=== PATIENT | female | born 1975 ===

== ENCOUNTER → 2020-04-14 14:05 | Outpatient (REF) | payer OTHER, SELFPAY | LOC: HO.SL 14:05 | PROVIDERS: PCP Internal Medicine; Visit Provider Nurse Practitioner Family | DX: G47.30 Sleep apnea, unspecified (principal) | CPT/HCPCS: 95806 ==

== ENCOUNTER → 2020-08-02 13:51 | Outpatient (BNVA) | payer OTHER, SELFPAY | PROVIDERS: PCP Internal Medicine; Visit Provider Dietitian, Registered ==

== ENCOUNTER 2020-08-23 14:20 | Outpatient (REF) | payer OTHER, SELFPAY ==
[2020-08-23 14:54] LABS: MANUAL DIFF FLAG NO
[2020-08-23 14:58] LABS: Basophils Percent Auto 0.2 % (0-2); Eosinophils Absolute Auto 0.2 X10*3/uL (0.0-0.4); Eosinophils Percent Auto 1.7 % (0-4); Hematocrit 43.4 % (37-47); Hemoglobin 13.2 g/dl (12.0-16.0); Imm Gran Abs Auto 0.03 X10*3/uL (0.00-0.03); Imm Gran Pct Auto 0.3 % (0.0-0.4); Lymphocytes Absolute Auto 1.9 X10*3/uL (1.2-4.9); Mean Corpuscular HGB Conc 30.4 g/dl (31.0-35.0); Mean Corpuscular Hemoglobin 24.4 pg (27.0-33.0); Mean Corpuscular Volume 80.2 fL (80-98); Mean Platelet Volume 9.6 fL (9.4-12.3); Monocytes Absolute Auto 0.5 X10*3/uL (0.1-1.2); Monocytes Percent Auto 5.2 % (2-11); Neutrophils Absolute Auto 7.7 X10*3/uL (2.0-8.3); Neutrophils Percent Auto 74.6 % (45-73); Platelet Count 283 X10*3/uL (160-400); Red Blood Count 5.41 X10*6/uL (4.20-5.50); Red Cell Distribution Width 17.2 % (11.0-16.0); White Blood Count 10.4 X10*3/uL (4.8-10.8)
[2020-08-23 15:14] LABS: Estimated Average Glucose 128 mg/dL; Hemoglobin A1c % 6.1 %
[2020-08-23 15:24] LABS: Cholesterol 220 mg/dL; HDL Cholesterol 51 mg/dL; LDL Cholesterol Calculated 135 mg/dl; Triglycerides 174 mg/dL
[2020-08-23 15:47] LABS: Creatinine Urine 75.48 mg/dL; Free T4 (Free Thyroxine) 0.95 ng/dL (0.71-1.85); Microalbumin Urine < 5.0 mg/L; Thyroid Stimulating Hormone 2.37 uIU/mL (0.32-4.0); Vitamin D 25-OH Total 49.5 ng/mL (>30)
[2020-08-23 16:29] LABS: Folate > 20.0 ng/mL (> or = 4.0); Vitamin B12 199 pg/mL (200-900)
== END 2020-08-23 14:21 | disposition home or self-care (01) ==
LOC: HO.LAB 14:20
PROVIDERS: PCP Internal Medicine; Visit Provider Internal Medicine
DX: E78.00 Pure hypercholesterolemia, unspecified (principal); E11.65 Type 2 diabetes mellitus with hyperglycemia
CPT/HCPCS: 36415; 80061; 82043; 82306; 82607; 82746; 83036; 84439; 84443; 85025

== ENCOUNTER → 2020-09-06 09:27 | Outpatient (BNVA) | payer OTHER, SELFPAY | PROVIDERS: PCP Internal Medicine; Visit Provider Psychiatry & Neurology Neurology ==

== ENCOUNTER 2021-02-18 15:16 | Outpatient (REF) | payer OTHER, SELFPAY | END 2021-02-18 15:17 | disposition home or self-care (01) | LOC: HO.LNP 15:16 | PROVIDERS: Visit Provider Physician Assistant Medical | DX: J31.0 Chronic rhinitis (principal); Z20.822 Contact with and (suspected) exposure to COVID-19 | CPT/HCPCS: U0003; U0005 ==

== ENCOUNTER 2021-08-01 08:42 | Outpatient (REF) | payer OTHER, SELFPAY ==
--- NOTE | 2021-08-01 17:19 | PFT_ITS ---
Forced vital capacity 41, FEV1 34, FEV1/FVC 69, FEF 25-75 only 22%, and MVV 40%. Post bronchodilator therapy, there is a significant improvement in all the flow volumes. Total lung capacity 81 and residual volume 141, indicating some air trapping. Diffusion capacity 62, moderately reduced. CONCLUSION: Very severe obstructive airway disorder. Partial reversibility after bronchodilator therapy is noted. These findings are consistent with asthma/COPD overlap syndrome. Clinical correlation is recommended. Compared to results of 08/25/2014, there is a definite decline in the numbers. Fransisca Hernández MD MSB/MODL / [id number]
== END 2021-08-01 08:43 | disposition home or self-care (01) ==
LOC: HO.RESP 08:42
PROVIDERS: PCP Internal Medicine; Visit Provider Internal Medicine
DX: J43.9 Emphysema, unspecified (principal)
CPT/HCPCS: 94060; 94727; 94729

== ENCOUNTER 2021-12-05 08:06 | Outpatient (REF) | payer OTHER, SELFPAY ==
[2021-12-05 08:28] LABS: MANUAL DIFF FLAG NO
[2021-12-05 08:37] LABS: Basophils Percent Auto 0.2 % (0-2); Eosinophils Absolute Auto 0.2 X10*3/uL (0.0-0.4); Eosinophils Percent Auto 2.1 % (0-4); Hematocrit 37.7 % (37.0-47.0); Hemoglobin 12.2 g/dl (12.0-16.0); Imm Gran Abs Auto 0.03 X10*3/uL (0.00-0.03); Imm Gran Pct Auto 0.4 % (0.0-0.4); Lymphocytes Absolute Auto 1.9 X10*3/uL (1.2-4.9); Lymphocytes Percent Auto 23.3 % (20-40); Mean Corpuscular HGB Conc 32.4 g/dl (31.0-35.0); Mean Corpuscular Hemoglobin 26.4 pg (27.0-33.0); Mean Corpuscular Volume 81.6 fL (80.0-98.0); Mean Platelet Volume 9.9 fL (9.4-12.3); Monocytes Absolute Auto 0.5 X10*3/uL (0.1-1.2); Monocytes Percent Auto 6.3 % (2-11); Neutrophils Absolute Auto 5.5 x10*3/uL (2.0-8.3); Neutrophils Percent Auto 67.7 % (45-73); Platelet Count 257 X10*3/uL (160-400); Red Blood Count 4.62 X10*6/uL (4.20-5.50); Red Cell Distribution Width 13.4 % (11.0-16.0); White Blood Count 8.1 X10*3/uL (4.8-10.8)
[2021-12-05 09:05] LABS: Alanine Aminotransferase 10 U/L (0-31); Albumin Level 3.5 g/dL (3.5-5.0); Alkaline Phosphatase 76 U/L (39-117); Anion Gap 11 (12-20); Aspartate Amino Transferase 9 U/L (5-31); Bilirubin Total 0.9 mg/dL (0.0-1.0); Blood Urea Nitrogen 18 mg/dL (9-16); Calcium 8.9 mg/dL (8.4-10.2); Carbon Dioxide 31 mmol/L (22-29); Chloride 104 mmol/L (96-108); Estimated Glomerular Filt Rate > 60; Glucose Random 95 mg/dL (60-115); Potassium 3.7 mmol/L (3.3-5.1); Sodium 142 mmol/L (135-145); Total Protein 6.6 g/dL (6.5-8.0)
[2021-12-05 09:26] LABS: Free T4 (Free Thyroxine) 1.02 ng/dL (0.71-1.85); Thyroid Stimulating Hormone 1.59 uIU/mL (0.32-4.0); Vitamin D 25-OH Total 41.7 ng/mL (>30)
[2021-12-05 09:41] LABS: Folate 5.5 ng/mL (> or = 4.0); Vitamin B12 239 pg/mL (200-900)
== END 2021-12-05 08:07 | disposition home or self-care (01) ==
LOC: HO.LAB 08:06
PROVIDERS: PCP Internal Medicine; Visit Provider Internal Medicine
DX: E53.8 Deficiency of other specified B group vitamins (principal); E11.65 Type 2 diabetes mellitus with hyperglycemia; E78.00 Pure hypercholesterolemia, unspecified
CPT/HCPCS: 36415; 80053; 82306; 82607; 82746; 84439; 84443; 85025

== ENCOUNTER 2022-06-26 12:25 | Outpatient (REF) | payer OTHER, SELFPAY ==
[2022-06-26 13:25] LABS: Appearance Urine Clear; Color Urine Dark Yellow; Glucose Urine UA Negative (Negative); Leukocyte Esterase Urine Negative (Negative); Nitrite Urine Negative (Negative); PH 5.5 (5.0-9.0); Specific Gravity - Urine 1.025 (1.005-1.025); Urine Blood Negative (Negative); Urine Ketones Negative (Negative); Urine Protein Negative (Neg-Trace)
== END 2022-06-26 12:26 | disposition home or self-care (01) ==
LOC: HO.LAB 12:25
PROVIDERS: PCP Internal Medicine; Visit Provider Internal Medicine
DX: N39.0 Urinary tract infection, site not specified (principal)
CPT/HCPCS: 81003

== ENCOUNTER 2022-11-06 08:27 | Outpatient (REF) | payer OTHER, SELFPAY ==
[2022-11-06 08:43] LABS: MANUAL DIFF FLAG NO
[2022-11-06 09:05] LABS: Basophils Percent Auto 0.4 % (0-2); Eosinophils Absolute Auto 0.2 X10*3/uL (0.0-0.4); Eosinophils Percent Auto 1.5 % (0-4); Hematocrit 39.3 % (37.0-47.0); Hemoglobin 12.5 g/dl (12.0-16.0); Imm Gran Abs Auto 0.06 X10*3/uL (0.00-0.03); Imm Gran Pct Auto 0.6 % (0.0-0.4); Lymphocytes Absolute Auto 2.5 X10*3/uL (1.2-4.9); Lymphocytes Percent Auto 23.7 % (20-40); Mean Corpuscular HGB Conc 31.8 g/dl (31.0-35.0); Mean Corpuscular Hemoglobin 25.2 pg (27.0-33.0); Mean Corpuscular Volume 79.1 fL (80.0-98.0); Mean Platelet Volume 9.7 fL (9.4-12.3); Monocytes Absolute Auto 0.6 X10*3/uL (0.1-1.2); Monocytes Percent Auto 5.4 % (2-11); Neutrophils Absolute Auto 7.3 x10*3/uL (2.0-8.3); Neutrophils Percent Auto 68.4 % (45-73); Platelet Count 281 X10*3/uL (160-400); Red Blood Count 4.97 X10*6/uL (4.20-5.50); White Blood Count 10.6 X10*3/uL (4.8-10.8)
[2022-11-06 09:49] LABS: Alanine Aminotransferase 10 U/L (0-31); Albumin Level 3.6 g/dL (3.5-5.0); Alkaline Phosphatase 92 U/L (39-117); Anion Gap 12 (12-20); Aspartate Amino Transferase 11 U/L (5-31); Bilirubin Total 0.9 mg/dL (0.0-1.0); Blood Urea Nitrogen 14 mg/dL (9-16); Calcium 8.8 mg/dL (8.4-10.2); Carbon Dioxide 31 mmol/L (22-29); Chloride 102 mmol/L (96-108); Cholesterol 126 mg/dL; Estimated Glomerular Filt Rate > 60; Glucose Random 107 mg/dL (60-115); HDL Cholesterol 40 mg/dL; LDL Cholesterol Calculated 48 mg/dl; Potassium 3.7 mmol/L (3.3-5.1); Sodium 141 mmol/L (135-145); Total Protein 6.7 g/dL (6.5-8.0); Triglycerides 192 mg/dL
[2022-11-06 10:18] LABS: Folate 5.1 ng/mL (> or = 4.0); Free T4 (Free Thyroxine) 1.06 ng/dL (0.71-1.85); Thyroid Stimulating Hormone 1.84 uIU/mL (0.32-4.0); Vitamin B12 338 pg/mL (200-900); Vitamin D 25-OH Total 50.2 ng/mL (>30)
[2022-11-06 10:37] LABS: Creatinine Urine 198.37 mg/dL
== END 2022-11-06 08:28 | disposition home or self-care (01) ==
LOC: HO.LAB 08:27
PROVIDERS: PCP Internal Medicine; Visit Provider Internal Medicine
DX: E11.65 Type 2 diabetes mellitus with hyperglycemia (principal); E78.00 Pure hypercholesterolemia, unspecified
CPT/HCPCS: 36415; 80053; 80061; 82043; 82306; 82607; 82746; 84439; 84443; 85025

== ENCOUNTER 2023-07-12 09:45 | Outpatient (AMB) | payer OTHER, SELFPAY ==
[2023-07-12 09:57] VITALS: BP 120/68; PULSE 61; O2SAT 98; BMI 58.5
--- NOTE | 2023-07-12 09:57 | MHC.PC.OV ---
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 Allergies JASBIR Inhibitors [JASBIR INHIBITORS] Allergy (Severe, Verified 07/12/23 09:57) ANGIOEDEMA acetaminophen [From VICODIN] Allergy (Severe, Verified 07/12/23 09:57) ANGIOEDEMA hydrocodone [From VICODIN] Allergy (Severe, Verified 07/12/23 09:57) ANGIOEDEMA Tobacco use date assessed: 07/12/23 Dental Screening Dental Screen Date: 07/12/23 Did you have a dental visit in the last 12 months?: No Did you have a dental problem in the last 6 months where you did not have access to dental care?: No HPI Annual Exam HPI Details 48-year-old morbidly obese female with a history of hypertension hypercholesterolemia severe obstructive sleep apnea diabetes mellitus COPD GERD history of sleeve gastrectomy coming in for follow-up last seen in January 2023 patient's colonoscopy is up-to-date reminded about mammogram and Pap smears. Patient follows up with the bariatric surgeon in June 2023 had the the Kathryn laparoscopic single anastomosis duodenal ileal bypass. On the chart also noted had the shingles and flu shot.. Patient has also followed up with Cardiology in January [address] Lerma CAD history type 2 demand secondary to elevated blood pressures cardiac catheterization revealed normal coronary anatomy no role for aspirin. Continuing with statin amlodipine and carvedilol low-salt diet. January 2023 had left endoscopic carpal tunnel release doctors path. has diarrhea and on loperamid, does exercixse and has knee pain - needs tramadol. DM aic 7.0 but will hold off med PFS Medical History (Updated 07/12/23 @ 11:03 by Melina Barber MD) Coronary artery disease NSTEMI (non-ST elevated myocardial infarction) Rhinitis Acute sinusitis Leg abrasion Glaucoma Obesity Peripheral vascular disease Knee osteoarthritis GERD (gastroesophageal reflux disease) Hypercholesterolemia Insomnia B12 deficiency Hypertension Severe obstructive sleep apnea Non-STEMI (non-ST elevated myocardial infarction) Type 2 diabetes mellitus with hyperglycemia COPD (chronic obstructive pulmonary disease) DDD (degenerative disc disease), lumbar Surgical History (Updated 07/12/23 @ 11:03 by Melina Barber MD) Status post breast reduction Status post panniculectomy H/O left knee surgery History of surgery on arm LAP-BAND surgery status Family History Father Lung disease Diabetes Hypertension CVD (cardiovascular disease) Mother Diabetes Hypertension Maternal Grandmother Myocardial infarction Social History Housing: House Patient Tobacco Use Status: Former Tobacco user Tobacco use type: Cigarette e-Cigarette/Vaping Use: Never Used Second Hand Smoke Exposure: No service: No Current occupational status: unemployed and disabled Cognitive needs: No Hearing needs: No Vision needs: Yes Questionnaire PHQ-9 Over the last 2 weeks, how often have you been bothered by any of the following problems? 1. Little interest or pleasure in doing things: not at all 2. Feeling down, depressed, or hopeless: not at all 3. Trouble falling or staying asleep, or sleeping too much: not at all 4. Feeling tired or having little energy: not at all 5. Poor appetite or overeating: not at all 6. Feeling bad about yourself - or that you are a failure or have let yourself or your family down: not at all 7. Trouble concentrating on things, such as reading the newspaper or watching television: not at all 8. Moving or speaking so slowly that other people could have noticed. Or the opposite - being so fidgety or restless that you have been moving around a lot more than usual: not at all 9. Thoughts that you would be better off or of hurting yourself in some way: not at all Total score: 0 Depression Screening Interpretation: Negative Depression Screening Done: Yes Source: Developed by Drs. Parvez Bernstein, Dena Aguilar, Jcarlos Sherman and colleagues, with an educational deann from [employer]. Thrive Questionnaire Date Thrive assessed: 07/10/22 AUDIT C Alcohol Use Questionnaire (AUDIT-C) 1. How often do you have a drink containing alcohol?: Never 3. How often do you have six or more drinks on one occasion?: Never Total Score: 0 Score Reviewed/Action Taken: No MARV-7 AMB Questionnaire MARV-7 Date MARV - 7 assessed: 07/12/23 Feeling nervous, anxious, or on edge: 0 = Not at all Not being able to stop or control worryin = Not at all Worrying too much about different things: 0 = Not at all Trouble relaxin = Not at all Being so restless that it is hard to sit still: 0 = Not at all Becoming easily annoyed or irritable: 0 = Not at all Feeling afraid as if something awful might happen: 0 = Not at all Total MARV-7 score (0-4 normal; 5-9 mild; 10-14 moderate; 15-21 severe): 0 Source: Developed by Drs. Parvez Bernstein, Dena Aguilar, Jcarlos Sherman and colleagues, with an educational deann from [employer]. Physical exam (Primary Care) Vital Signs: Last Vital Signs Pulse 61 07/12/23 09:57 BP 120/68 07/12/23 09:57 Pulse Ox 98 07/12/23 09:57 Oxygen Delivery Method Room Air 07/12/23 09:57 BMI result Body Mass Index 58.5 Tobacco/Smoking Status: Tobacco use Status Tobacco use date assessed 07/12/23 07/12/23 09:58 Patient Tobacco Use Status Former Tobacco user 07/12/23 09:58 Tobacco use type Cigarette 07/12/23 09:58 e-Cigarette/Vaping Use Never Used 07/12/23 09:58 PHQ-9: PHQ-9 Score PHQ-9: Total score 0 07/12/23 10:50 Depression Screening Interpretation: Negative Thrive Assessment: Date of Thrive Assessment Date Thrive assessed 07/10/22 07/12/23 09:58 Const General: alert; No acute distress Eyes Conjunctivae: conjunctivae normal Resp Auscultation: clear to auscultation bilaterally Cardio Rate: regular rate Rhythm: regular rhythm GI Inspection: Yes normal to inspection Extrem General: Yes normal to inspection and No edema Results AMB Hemoglobin A1c AMB Hemoglobin A1c 7.0 % Last Edit by ADRIAN Hernandez on 07/12/23 10:50 Results Reviewed Results Reviewed: Laboratory Last Values Hgb A1c (Clinic) 7.0 % (4.0-6.0) H 07/12/23 09:56 Assessment and Plan Assessment & Plan (1) Bariatric surgery status: Comment: June 2023 duodenal ileal bypass aKt Code(s): Z98.84 - Bariatric surgery status Plan: Continue to follow-up with bariatric surgeon (2) Carpal tunnel syndrome on both sides: Comment: May had the right endoscopic carpal tunnel release under doctor Terrell January 2023 left Code(s): G56.03 - Carpal tunnel syndrome, bilateral upper limbs Plan: Doing good (3) History of sleeve gastrectomy: Comment: May 2021 robotic assisted laparoscopic removal of the lap band and conversion to sleeve gastrectomy Dr. Campbell 05/2021 Code(s): Z90.3 - Acquired absence of stomach [part of] (4) Hypertension: Comment: Coronary angiography March 2020 normal hypertension demand ischemia Code(s): I10 - Essential (primary) hypertension Qualifiers: Hypertension type: essential hypertension Qualified Code(s): I10 - Essential (primary) hypertension Plan: Continue with blood pressure medication. Decrease salt intake and exercise presently on amlodipine 2.5 mg once a day carvedilol 25 mg twice a day spironolactone 25 mg once a day (5) Hypercholesterolemia: Code(s): E78.00 - Pure hypercholesterolemia, unspecified Plan: Avoid fried foods, chicken skin, eggs, butter margarine, pastries and meat. Be it pork or beef they have a lot of cholesterol on atorvastatin 10 mg bedtime (6) Severe obstructive sleep apnea: Comment: Started on IVAPS intelligent volume assured pressure support Code(s): G47.33 - Obstructive sleep apnea (adult) (pediatric) Plan: Continue with IV APS more than 4 hours a night and benefits from this (7) Type 2 diabetes mellitus with hyperglycemia: Code(s): E11.65 - Type 2 diabetes mellitus with hyperglycemia Qualifiers: Diabetes mellitus [facility] insulin use: without [facility] use Qualified Code(s): E11.65 - Type 2 diabetes mellitus with hyperglycemia Plan: Decrease the amount of carbohydrate intake, pasta, bread, rice and potatoes are all sugar and that is aside from all the sweet stuff, remember that fruits are good but they are Sweet also. Discussed the A1c to be elevated but patient has had the surgery within the last month and so will continue to monitor for now without any new medication patient is on a bariatric diet (8) COPD (chronic obstructive pulmonary disease): Code(s): J44.9 - Chronic obstructive pulmonary disease, unspecified Qualifiers: COPD type: emphysema Emphysema type: unspecified Qualified Code(s): J43.9 - Emphysema, unspecified Plan: Continue with the inhaler as needed (9) Knee pain, bilateral: Code(s): M25.561 - Pain in right knee; M25.562 - Pain in left knee Plan: Tramadol increased to 3 times a day as needed. Orders: Orders AMB Hemoglobin A1c Today E11.65 - Type 2 diabetes mellitus with hyperglycemia Medications: Changed From tramadol 50 mg PO BID PRN 60 tabs 2RF pain M25.561 - Pain in right knee, M25.562 - Pain in left knee To tramadol 50 mg PO Q8H PRN 90 tabs 2RF pain M25.561 - Pain in right knee, M25.562 - Pain in left knee Discontinued cholecalciferol (vitamin D3) Discontinued Reason: Doctor's Order 50 mcg PO DAILY 90 days 90 caps 3RF ascorbic acid (vitamin C) (Vitamin C With Tyra Hips) Discontinued Reason: Doctor's Order 500 mg PO BID 180 tabs 3RF meloxicam Discontinued Reason: Change Referral Type 15 mg PO DAILY 90 days 60 tabs 0RF liraglutide (weight loss) Discontinued Reason: Doctor's Order 1.8 mg (0.3 mL) subcut DAILY 30 days 15 mL 0RF E11.65 - Type 2 diabetes mellitus with hyperglycemia, Z68.44 - Body mass index [BMI] 60.0-69.9, adult Coding Level of Care Code Est Pt Level 4 (46520) Diagnoses Bariatric surgery status Z98.84 Carpal tunnel syndrome on both sides G56.03 History of sleeve gastrectomy Z90.3 Essential hypertension I10 Hypertension type: essential hypertension Hypercholesterolemia E78.00 Severe obstructive sleep apnea G47.33 Type 2 diabetes mellitus with hyperglycemia, without long-term current use of insulin E11.65 Diabetes mellitus [facility] insulin use: without truck driver supervisor use Pulmonary emphysema, unspecified emphysema type J43.9 COPD type: emphysema Emphysema type: unspecified Knee pain, bilateral M25.561; M25.562
== END 2023-07-12 11:18 | disposition home or self-care (01) ==
PROVIDERS: Visit Provider Internal Medicine
DX: E11.65 Type 2 diabetes mellitus with hyperglycemia (principal); J43.9 Emphysema, unspecified; Z98.84 Bariatric surgery status; G56.03 Carpal tunnel syndrome, bilateral upper limbs; Z90.3 Acquired absence of stomach [part of]; I10 Essential (primary) hypertension; E78.00 Pure hypercholesterolemia, unspecified; G47.33 Obstructive sleep apnea (adult) (pediatric); M25.561 Pain in right knee; M25.562 Pain in left knee
CPT/HCPCS: 83036; 99214

== ENCOUNTER 2023-09-25 07:11 | Outpatient (REF) | payer OTHER, SELFPAY ==
--- NOTE | ~2023-09-25 | XR_ITS ---
EXAMINATION: XR KNEE, LEFT CLINICAL INFORMATION: Pain in left knee. COMPARISON: 04/09/2018. TECHNIQUE: Three views of the left knee. FINDINGS: The bones are diffusely demineralized. Advanced degenerative changes in the medial and patellofemoral compartments with narrowing of these compartments. Tricompartmental osteophytes. Trace suprapatellar effusion. XR/XR knee LT 3V IMPRESSION: Progression of advanced degenerative changes.
== END 2023-09-25 07:12 | disposition home or self-care (01) ==
LOC: HO.HOSX 07:11
PROVIDERS: Visit Provider Orthopaedic Surgery
DX: M17.12 Unilateral primary osteoarthritis, left knee (principal)
CPT/HCPCS: 73562; 99202

== ENCOUNTER 2023-09-25 14:32 | Outpatient (AMB) | payer OTHER, SELFPAY ==
[2023-09-25 14:51] VITALS: BMI 58.5
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
== END 2023-09-25 15:23 | disposition home or self-care (01) ==
PROVIDERS: PCP Internal Medicine; Visit Provider Orthopaedic Surgery
DX: M17.12 Unilateral primary osteoarthritis, left knee (principal)
CPT/HCPCS: 99202

== ENCOUNTER 2023-10-15 13:17 | Outpatient (AMB) | payer OTHER, SELFPAY ==
--- NOTE | 2023-10-15 13:22 | MHC.OFFVIS ---
Intake Vital Signs 10/15/23 13:24 Height 5 ft 3 in Weight 330 lb BMI 58.5 Intake Visit Reasons: OV- Left knee #1 Euflexxa gel injection Intake Note: Yessica is a 48 year old female who presents for her #1 Left knee Euflexxa gel injection. She has had Durolane injections in the past. Those injections have given her very good relief. She has had cortisone injections in the past which gave her minimal relief. She has tried Tylenol and anti-inflammatory medicines which gave her only mild relief. She continues to go to the gym and exercise as much as possible. Allergies JASBIR Inhibitors [JASBIR INHIBITORS] Allergy (Severe, Verified 10/15/23 13:25) ANGIOEDEMA acetaminophen [From VICODIN] Allergy (Severe, Verified 10/15/23 13:25) ANGIOEDEMA hydrocodone [From VICODIN] Allergy (Severe, Verified 10/15/23 13:25) ANGIOEDEMA Medication List - Last Reconciled 10/15/23 by Farhan Napier MD albuterol sulfate 2.5 mg (3 mL) inhalation Q4-6H PRN albuterol sulfate 90 mcg/actuation (ProAir HFA) 2 puffs inhalation Q6H PRN amlodipine 2.5 mg PO DAILY atorvastatin 10 mg PO BEDTIME blood sugar diagnostic (FreeStyle Lite Strips) CHECK BLOOD SUGAR TWICE A DAY carvedilol 25 mg PO BID [HeavyDUTYshower bench As directed] [iVAPS EPAP 8 & TVA 8 SD 14 PS 6-20 HT. 64 inches with 2L in NREM with heated humidified EPAP in range 6-9 TVA 7.7 -9.4] lancets (FreeStyle Lancets) 28 gauge miscellaneous BID 90 days mometasone-formoterol 100-5 mcg/actuation (Dulera) 1 puff inhalation Q12H [oxygen As directed 2 L NC] pantoprazole 40 mg PO DAILY [Shower chair As directed] tramadol 50 mg PO Q8H PRN PFSH Medical History Coronary artery disease NSTEMI (non-ST elevated myocardial infarction) Rhinitis Acute sinusitis Leg abrasion Glaucoma Obesity Peripheral vascular disease Knee osteoarthritis GERD (gastroesophageal reflux disease) Hypercholesterolemia Insomnia B12 deficiency Hypertension Severe obstructive sleep apnea Non-STEMI (non-ST elevated myocardial infarction) Type 2 diabetes mellitus with hyperglycemia COPD (chronic obstructive pulmonary disease) DDD (degenerative disc disease), lumbar Surgical History Status post breast reduction Status post panniculectomy H/O left knee surgery History of surgery on arm LAP-BAND surgery status Family History Father Lung disease Diabetes Hypertension CVD (cardiovascular disease) Mother Diabetes Hypertension Maternal Grandmother Myocardial infarction Social History Housing: House Patient Tobacco Use Status: Former Tobacco user Tobacco use type: Cigarette e-Cigarette/Vaping Use: Never Used Second Hand Smoke Exposure: No service: No Current occupational status: unemployed and disabled Current occupation: Right hand dominate Cognitive needs: No Hearing needs: No Vision needs: Yes Physical Exam Vital Signs: BMI result Body Mass Index 58.5 Const Other: Well-nourished well-developed very friendly female awake alert and oriented x3 in no acute distress Extrem Other: Bilateral lower extremity examination shows good capillary refill, no skin lesions noted, normal sensation light touch Left knee examination shows a minimal effusion, palpable crepitus with range of motion, pain with range of motion, no instability Office Procedures Joint Injection/Drain Joint Injection/Drain Primary Site: left knee Prep: site was prepped using aseptic technique Injected: 20 mg of (Euflexxa viscosupplementation) Procedure: The patient tolerated the procedure well Coding 94579 - Large joint Procedure code (CPT) selection complete Results Reviewed Results Reviewed: X-rays of the patient's left knee show joint space narrowing, subchondral sclerosis, no acute bony abnormalities Assessment & Plan Assessment & Plan (1) Arthritis of left knee: Code(s): M17.12 - Unilateral primary osteoarthritis, left knee Plan Ms. Olivas presents with left knee pain due to degenerative joint disease. I had a lengthy discussion with the patient regarding the treatment options. She wishes to hold off on surgery for as long as possible. I agree with this plan. She has not gotten good relief from cortisone injections in the past. She has gotten relief from viscosupplementation injections. Thus, the risks and benefits of a series of 3 Euflexxa injections were discussed at length with the patient. The patient wished to proceed with the 1st injection. She tolerated the injection well. She will continue with her exercise program. She will follow up next week as scheduled. Feel free to call me at any time should questions regarding her orthopedic management arise. I spent 22 minutes in reviewing the patient's records and imaging studies, seeing the patient and documenting in the medical record. Orders: Orders AMB Joint Injection/Aspiration Today M17.12 - Unilateral primary osteoarthritis, left knee Coding Level of Care Code Est Pt Level 2 (26177) Diagnoses Arthritis of left knee M17.12 CPT Codes Coding - 32562 Large joint: 76333 - Large joint ([id number])
[2023-10-15 13:24] VITALS: BMI 58.5
== END 2023-10-15 13:51 | disposition home or self-care (01) ==
PROVIDERS: PCP Internal Medicine; Visit Provider Orthopaedic Surgery
DX: M17.12 Unilateral primary osteoarthritis, left knee (principal)
CPT/HCPCS: 20610; 99214

== ENCOUNTER → 2023-10-15 13:17 | Outpatient (BNVA) | payer OTHER, SELFPAY | PROVIDERS: PCP Internal Medicine; Visit Provider Orthopaedic Surgery | DX: M17.12 Unilateral primary osteoarthritis, left knee (principal) | CPT/HCPCS: 20610; 99212; J7323 ==

== ENCOUNTER 2023-10-22 15:11 | Outpatient (AMB) | payer OTHER, SELFPAY ==
[2023-10-22 15:15] VITALS: BMI 58.5
--- NOTE | 2023-10-22 15:15 | A.OFFVIS_ITS ---
Intake Vital Signs 10/22/23 15:15 Height 5 ft 3 in Weight 330 lb BMI 58.5 Intake Visit Reasons: OV- Left knee #2 Euflexxa gel injecton Intake Note: Yessica is a 48 year old female who presents for her Left knee #2 Euflexxa gel injection. Patient reports her last injection was on 10/15/2023 and it went well. She states she would like to proceed with her injection today. She states that she got mild relief from the 1st injection. She denies any fevers or chills. 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 & declined Allergies JASBIR Inhibitors [JASBIR INHIBITORS] Allergy (Severe, Verified 10/22/23 15:25) ANGIOEDEMA acetaminophen [From VICODIN] Allergy (Severe, Verified 10/22/23 15:25) ANGIOEDEMA hydrocodone [From VICODIN] Allergy (Severe, Verified 10/22/23 15:25) ANGIOEDEMA PFSH Medical History Coronary artery disease NSTEMI (non-ST elevated myocardial infarction) Rhinitis Acute sinusitis Leg abrasion Glaucoma Obesity Peripheral vascular disease Knee osteoarthritis GERD (gastroesophageal reflux disease) Hypercholesterolemia Insomnia B12 deficiency Hypertension Severe obstructive sleep apnea Non-STEMI (non-ST elevated myocardial infarction) Type 2 diabetes mellitus with hyperglycemia COPD (chronic obstructive pulmonary disease) DDD (degenerative disc disease), lumbar Surgical History Status post breast reduction Status post panniculectomy H/O left knee surgery History of surgery on arm LAP-BAND surgery status Family History Father Lung disease Diabetes Hypertension CVD (cardiovascular disease) Mother Diabetes Hypertension Maternal Grandmother Myocardial infarction Social History Housing: House Patient Tobacco Use Status: Former Tobacco user Tobacco use type: Cigarette e-Cigarette/Vaping Use: Never Used Second Hand Smoke Exposure: No service: No Current occupational status: unemployed and disabled Current occupation: Right hand dominate Cognitive needs: No Hearing needs: No Vision needs: Yes Physical Exam Vital Signs: BMI result Body Mass Index 58.5 Extrem Other: Bilateral lower extremity examination shows good capillary refill, no skin lesions noted, normal sensation light touch Left knee examination shows a minimal effusion, palpable crepitus with range of motion, pain with range of motion, no instability Office Procedures Joint Injection/Drain Joint Injection/Drain Primary Site: left knee Prep: site was prepped using aseptic technique Injected: 20 mg of (Euflexxa viscosupplementation) and 1% plain lidocaine Procedure: The patient tolerated the procedure well Coding 03646 - Large joint Procedure code (CPT) selection complete Results Reviewed Results Reviewed: X-rays of the patient's left knee show joint space narrowing, subchondral sclerosis, no acute bony abnormalities Assessment & Plan Assessment & Plan (1) Arthritis of left knee: Code(s): M17.12 - Unilateral primary osteoarthritis, left knee Plan Ms. Olivas presents with left knee pain due to degenerative joint disease. The risks and benefits of her 2nd Euflexxa injection were discussed at length with the patient. The patient wished to proceed. She tolerated the injection well. She will continue with her home exercise program. She will follow-up for her 3rd injection as scheduled. Feel free to call me at any time should questions regarding her orthopedic management arise. I spent 22 minutes in reviewing the patient's records and imaging studies, seeing the patient and documenting in the medical record. Orders: Orders AMB Joint Injection/Aspiration 10/22/23 M17.12 - Unilateral primary osteoarthritis, left knee Coding Level of Care Code Procedure Only Diagnoses Arthritis of left knee M17.12 CPT Codes Coding - 64029 Large joint: 22788 - Large joint ([id number])
== END 2023-10-22 15:57 | disposition home or self-care (01) ==
PROVIDERS: PCP Internal Medicine; Visit Provider Orthopaedic Surgery
DX: M17.12 Unilateral primary osteoarthritis, left knee (principal)
CPT/HCPCS: 20610

== ENCOUNTER → 2023-10-22 15:11 | Outpatient (BNVA) | payer OTHER, SELFPAY | PROVIDERS: PCP Internal Medicine; Visit Provider Orthopaedic Surgery | DX: M17.12 Unilateral primary osteoarthritis, left knee (principal) | CPT/HCPCS: 20610; J7323 ==

== ENCOUNTER 2023-10-29 15:12 | Outpatient (AMB) | payer OTHER, SELFPAY ==
[2023-10-29 15:16] VITALS: BMI 58.5
--- NOTE | 2023-10-29 15:16 | A.OFFVIS_ITS ---
Vital Signs 10/29/23 15:16 Height 5 ft 3 in Weight 330 lb BMI 58.5 Intake Visit Reasons: OV- Left knee #3 Euflexxa injecton Intake Note: Yessica is a 48 year old female who presents for her Left knee #3 Euflexxa gel injection. Patient reports her last injection was on 10/22/2023 and it went well. She wishes to proceed with her last Left knee euflexxa gel injection tod jeaneth. She continues with her home exercise program. Allergies JASBIR Inhibitors [JASBIR INHIBITORS] Allergy (Severe, Verified 10/29/23 15:18) ANGIOEDEMA acetaminophen [From VICODIN] Allergy (Severe, Verified 10/29/23 15:18) ANGIOEDEMA hydrocodone [From VICODIN] Allergy (Severe, Verified 10/29/23 15:18) ANGIOEDEMA Medication List - Last Reconciled 10/30/23 by Farhan Napier MD albuterol sulfate 2.5 mg (3 mL) inhalation Q4-6H PRN albuterol sulfate 90 mcg/actuation (ProAir HFA) 2 puffs inhalation Q6H PRN amlodipine 2.5 mg PO DAILY atorvastatin 10 mg PO BEDTIME blood sugar diagnostic (FreeStyle Lite Strips) CHECK BLOOD SUGAR TWICE A DAY carvedilol 25 mg PO BID [HeavyDUTYshower bench As directed] [iVAPS EPAP 8 & TVA 8 VT 14 PS 6-20 HT. 64 inches with 2L in NREM with heated humidified EPAP in range 6-9 TVA 7.7 -9.4] lancets (FreeStyle Lancets) 28 gauge miscellaneous BID 90 days mometasone-formoterol 100-5 mcg/actuation (Dulera) 1 puff inhalation Q12H [oxygen As directed 2 L NC] pantoprazole 40 mg PO DAILY [Shower chair As directed] tramadol 50 mg PO Q8H PRN PFSH Medical History Coronary artery disease NSTEMI (non-ST elevated myocardial infarction) Rhinitis Acute sinusitis Leg abrasion Glaucoma Obesity Peripheral vascular disease Knee osteoarthritis GERD (gastroesophageal reflux disease) Hypercholesterolemia Insomnia B12 deficiency Hypertension Severe obstructive sleep apnea Non-STEMI (non-ST elevated myocardial infarction) Type 2 diabetes mellitus with hyperglycemia COPD (chronic obstructive pulmonary disease) DDD (degenerative disc disease), lumbar Surgical History Status post breast reduction Status post panniculectomy H/O left knee surgery History of surgery on arm LAP-BAND surgery status Family History Father Lung disease Diabetes Hypertension CVD (cardiovascular disease) Mother Diabetes Hypertension Maternal Grandmother Myocardial infarction Social History Housing: House Patient Tobacco Use Status: Former Tobacco user Tobacco use type: Cigarette e-Cigarette/Vaping Use: Never Used Second Hand Smoke Exposure: No service: No Current occupational status: unemployed and disabled Current occupation: Right hand dominate Cognitive needs: No Hearing needs: No Vision needs: Yes Physical Exam Vital Signs: BMI result Body Mass Index 58.5 Extrem Other: Left knee examination shows a minimal effusion, palpable crepitus with range of motion, pain with range of motion, no instability Office Procedures Joint Injection/Drain Joint Injection/Drain Primary Site: left knee Prep: site was prepped using aseptic technique Injected: 20 mg of (Euflexxa viscosupplementation) and 1% plain lidocaine Procedure: The patient tolerated the procedure well Coding 46013 - Large joint Procedure code (CPT) selection complete Results Reviewed Results Reviewed: X-rays of the patient's left knee show joint space narrowing, subchondral sclerosis, no acute bony abnormalities Assessment & Plan Assessment & Plan (1) Arthritis of left knee: Code(s): M17.12 - Unilateral primary osteoarthritis, left knee Category: Medical Plan Ms. Olivas presents with left knee pain due to degenerative joint disease. I had a lengthy discussion with the patient regarding the treatment options. The risks and benefits of her 3rd Euflexxa injection were discussed at length with the patient. The patient wished to proceed. She tolerated the injection well. She will continue with her home exercise program. She will follow up with me on an as-needed basis should her symptoms not plateau at an unacceptable level over the next few months. Feel free to call me at any time should questions regarding her orthopedic management arise. I spent 22 minutes in reviewing the patient's records and imaging studies, seeing the patient and documenting in the medical record. Orders: Orders AMB Joint Injection/Aspiration 10/29/23 M17.12 - Unilateral primary osteoarthritis, left knee Coding Level of Care Code Procedure Only Diagnoses Arthritis of left knee M17.12 CPT Codes Coding - 64581 Large joint: 65790 - Large joint ([id number])
== END 2023-10-29 15:35 | disposition home or self-care (01) ==
PROVIDERS: PCP Internal Medicine; Visit Provider Orthopaedic Surgery
DX: M17.12 Unilateral primary osteoarthritis, left knee (principal)
CPT/HCPCS: 20610

== ENCOUNTER → 2023-10-29 15:12 | Outpatient (BNVA) | payer OTHER, SELFPAY | PROVIDERS: PCP Internal Medicine; Visit Provider Orthopaedic Surgery | DX: M17.12 Unilateral primary osteoarthritis, left knee (principal); Z79.899 Other long term (current) drug therapy | CPT/HCPCS: 20610; J7323 ==

== ENCOUNTER 2024-01-03 13:00 | Outpatient (REF) | payer OTHER, SELFPAY ==
[2024-01-03 15:02] LABS: HBS Num1 0.41 mIU/mL (0-7.99); HBc Num1 0.05 S/CO (0.00-0.79); HBsAGNum1 0.23 S/CO (0.00-0.99); Hepatitis B Core Antibody Nonreactive (Nonreactive); Hepatitis B Surface Antigen Negative (Negative); ~HepC Num1 0.07 S/CO (0.00-0.79); ~Hepatitis B Surface Antibody NONREACTIVE (Nonreactive); ~Hepatitis C Antibody Nonreactive (Nonreactive)
[2024-01-05 22:23] LABS: TS Negative Control Passed; TS Panel A 0; TS Panel B 1; TS Positive Control Passed; TSpotTB Negative (Negative)
[2024-01-07 17:57] LABS: Mumps Virus IgG Antibody <9.00 AU/mL; Rubella IgG Antibody 3.12 Index; Rubeola IgG (Measles) >300.00 AU/mL; Varicella IgG Antibody >4000.00 index
== END 2024-01-03 13:01 | disposition home or self-care (01) ==
LOC: HO.LAB 13:00
PROVIDERS: PCP Internal Medicine; Visit Provider Internal Medicine
DX: Z02.1 Encounter for pre-employment examination (principal); Z02.0 Encounter for examination for admission to educational institution; R79.89 Other specified abnormal findings of blood chemistry
CPT/HCPCS: 36415; 86481; 86704; 86706; 86735; 86762; 86765; 86787; 86803; 87340

== ENCOUNTER 2024-01-14 09:17 | Outpatient (AMB) | payer OTHER, SELFPAY ==
--- NOTE | 2024-01-14 09:20 | AM.OFFVISNUR ---
Intake Visit Reasons: MMR Allergies JASBIR Inhibitors [JASBIR INHIBITORS] Allergy (Severe, Verified 10/29/23 15:18) ANGIOEDEMA acetaminophen [From VICODIN] Allergy (Severe, Verified 10/29/23 15:18) ANGIOEDEMA hydrocodone [From VICODIN] Allergy (Severe, Verified 10/29/23 15:18) ANGIOEDEMA Assessment & Plan Assessment & Plan Orders: Orders MMR Immunization Today Z23 - Encounter for immunization Medications: New M-M-R II (PF) (measles,mumps,rubella vacc(PF)) 0.5 mL subcut ONCE 1 ea 0RF NS Z23 - Encounter for immunization
== END 2024-01-14 09:36 | disposition home or self-care (01) ==
PROVIDERS: PCP Internal Medicine; Visit Provider Internal Medicine
DX: Z23 Encounter for immunization (principal)
CPT/HCPCS: 90471; 90707

== ENCOUNTER 2024-02-06 07:38 | Outpatient (AMB) | payer OTHER, SELFPAY ==
[2024-02-06 07:45] VITALS: BP 108/60; PULSE 60; O2SAT 96; BMI 46.9
--- NOTE | 2024-02-06 07:45 | MHC.PC.OV ---
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 Uptwister Tender Required: No Accompanied by: Self / Same As Patient Allergies JASBIR Inhibitors [JASBIR INHIBITORS] Allergy (Severe, Verified 02/06/24 07:46) ANGIOEDEMA acetaminophen [From VICODIN] Allergy (Severe, Verified 02/06/24 07:46) ANGIOEDEMA hydrocodone [From VICODIN] Allergy (Severe, Verified 02/06/24 07:46) ANGIOEDEMA Medication List - Last Reconciled 02/06/24 by Radha Peters PA-C albuterol sulfate 2.5 mg (3 mL) inhalation Q4-6H PRN albuterol sulfate 90 mcg/actuation (ProAir HFA) 2 puffs inhalation Q6H PRN amlodipine 2.5 mg PO DAILY atorvastatin 10 mg PO BEDTIME blood sugar diagnostic (FreeStyle Lite Strips) CHECK BLOOD SUGAR TWICE A DAY carvedilol 25 mg PO BID [HeavyDUTYshower bench As directed] [iVAPS EPAP 8 & TVA 8 W[place] 14 PS 6-20 HT. 64 inches with 2L in NREM with heated humidified EPAP in range 6-9 TVA 7.7 -9.4] lancets (FreeStyle Lancets) 28 gauge miscellaneous BID 90 days mometasone-formoterol 100-5 mcg/actuation (Dulera) 1 puff inhalation Q12H [oxygen As directed 2 L NC] pantoprazole 40 mg PO DAILY [Shower chair As directed] tramadol 50 mg PO Q8H PRN Tobacco use date assessed: 07/12/23 Dental Screening Dental Screen Date: 02/06/24 Did you have a dental visit in the last 12 months?: No Did you have a dental problem in the last 6 months where you did not have access to dental care?: No Was dental information given to patient?: Patient has dentist HPI 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 Barber 07/2023 coming in for diabetes follow up. In review of the notes, patient was seen by orthopedics 10/2023 for left knee pain and given additional gel injection. She also had recent procedure left thumb A1 joey release for trigger finger. Mammogram completed 07/2023 BIRADS-2 follow up one year. Patient states since her surgery in June she has had a 93 lb weight loss and has been feeling good. She began working in October and has been able to tolerate standing for long periods of time as well as lifting over 30 lb. She also mentioned she has been exercising using a treadmill 15-20 minutes daily. Her diet has changed since her surgery and now she is unable to eat greasy foods without having diarrhea. Otherwise she eats primarily salads with protein. She still has mild knee pain which has improved since the last gel injection. [facility] Medical History (Updated 02/06/24 @ 08:02 by Radha Peters PA-C) Coronary artery disease NSTEMI (non-ST elevated myocardial infarction) Rhinitis Acute sinusitis Leg abrasion Glaucoma Obesity Peripheral vascular disease Knee osteoarthritis GERD (gastroesophageal reflux disease) Hypercholesterolemia Insomnia B12 deficiency Hypertension Severe obstructive sleep apnea Non-STEMI (non-ST elevated myocardial infarction) Type 2 diabetes mellitus with hyperglycemia COPD (chronic obstructive pulmonary disease) DDD (degenerative disc disease), lumbar Surgical History (Updated 02/06/24 @ 07:48 by ADRIAN Chang) History of gastric bypass Status post breast reduction Status post panniculectomy H/O left knee surgery History of surgery on arm LAP-BAND surgery status Family History Father Lung disease Diabetes Hypertension CVD (cardiovascular disease) Mother Diabetes Hypertension Maternal Grandmother Myocardial infarction Social History Housing: House Patient Tobacco Use Status: Former Tobacco user Tobacco use type: Cigarette e-Cigarette/Vaping Use: Never Used Second Hand Smoke Exposure: No service: No Current occupational status: unemployed and disabled Current occupation: Right hand dominate Cognitive needs: No Hearing needs: No Vision needs: Yes Questionnaire Thrive Questionnaire Date Thrive assessed: 07/10/22 MARV-7 AMB Questionnaire MARV-7 Date MARV - 7 assessed: 07/12/23 Source: Developed by Drs. Parvez Bernstein, Dena Aguilar, Jcarlos Sherman and colleagues, with an educational deann from [employer]. Review of Systems Const Denies body aches, Denies chills, Denies fever(s), Denies headache(s) and Denies poor appetite Eyes Reports no additional complaints ENT Denies dysphagia, Denies dizziness, Denies headache(s) and Denies odynophagia Card Denies chest pain, Denies syncope, Denies edema, Denies irregular heart rhythm, Denies lightheadedness and Denies dyspnea Resp Denies cough and Denies dyspnea GI Denies abdominal pain, Denies constipation, Denies dysphagia, Denies diarrhea, Denies nausea, Denies odynophagia and Denies vomiting Reports no additional complaints Musc Reports no additional complaints and Denies abnormal gait Skin/Breast Reports system reviewed and no additional complaints, except as documented Neuro Denies abnormal gait, Denies dizziness, Denies syncope and Denies headache(s) Psych Reports no additional complaints Physical exam (Primary Care) BMI result Body Mass Index 46.9 Tobacco/Smoking Status: Tobacco use Status Tobacco use date assessed 07/12/23 10/03/23 16:26 Patient Tobacco Use Status Former Tobacco user 10/03/23 16:26 Tobacco use type Cigarette 10/03/23 16:26 e-Cigarette/Vaping Use Never Used 10/03/23 16:26 Thrive Assessment: Date of Thrive Assessment Date Thrive assessed 07/10/22 10/03/23 16:26 Const General: cooperative, healthy appearing, comfortable and no acute distress Orientation/consciousness: patient oriented x3 HENMT Head: Yes normocephalic Ears: hearing grossly normal bilaterally General nose exam: Normal external nose present Eyes General: appearance normal, both eyes and all related structures Conjunctivae: conjunctivae normal Neck Neck: Yes full ROM and Yes no lymphadenopathy Resp Effort & Inspection: normal respiratory effort Auscultation: clear to auscultation bilaterally, no crackles, no rales, no rhonchi and no wheezes Cardio Rate: regular rate Rhythm: regular rhythm Skin General skin exam: no rashes or lesions noted Neuro General: patient oriented x3 Gait exam (Neuro): Normal gait present Extrem General: Yes normal to inspection, Yes full ROM and No edema Psych Affect: normal affect Attitude: cooperative Insight: Good insight present (Psych) Judgement: Good judgement present (Psych) Results AMB Hemoglobin A1c AMB Hemoglobin A1c 5.5 % Last Edit by ADRIAN Chang on 02/06/24 07:53 Assessment and Plan Assessment & Plan (1) Bariatric surgery status: Comment: June 2023 duodenal ileal bypass Kat Code(s): Z98.84 - Bariatric surgery status Plan: Patient has lost 65 lb since last appointment. She has been continuing with dietary modification and regular exercise of 15-20 minutes of treadmill a day. Was seen by provider in [facility] found to have low iron, B12, and zinc which are now being replaced with supplements. We will reorder for vitamin labs. (2) Hypercholesterolemia: Code(s): E78.00 - Pure hypercholesterolemia, unspecified Plan: Avoid foods that are high in cholesterol such as red meat, fried foods, eggs and baked goods. Continue on atorvastatin. New labs ordered. (3) GERD (gastroesophageal reflux disease): Code(s): K21.9 - Gastro-esophageal reflux disease without esophagitis Plan: Avoid trigger foods such as citrus, tomato products, soda, caffeine, spicy foods and other foods that may be irritating to your stomach. Avoid laying flat 3-4 hours after eating and elevate the head of the bed 30 degrees to prevent acid from moving into the esophagus. Continue on pantoprazole. (4) Hypertension: Comment: Coronary angiography March 2020 normal hypertension demand ischemia Code(s): I10 - Essential (primary) hypertension Qualifiers: Hypertension type: essential hypertension Qualified Code(s): I10 - Essential (primary) hypertension Plan: Blood pressure at goal today 108/60. Continue on current blood pressure medication. Avoid salt intake and encourage healthy diet and regular exercise. 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 Decrease the amount of carbohydrates such as pasta, bread, rice, and potatoes and limit the amount of sweets. Although fruits are generally healthy they should be eaten in moderation as they are still high in sugar. Medication not indicated at this time and patient is well managed on dietary modification will re-evaluate at next appointment. Plan This note was constructed using voice recognition software. While every effort has been made to ensure accuracy and operational intelligence officer, still areas may have been included sometimes these areas may affect the content or meeting of the given symptoms. Total time spent caring for the patient today was 35 minutes. This includes time spent before the visit reviewing the chart, time spent during the visit, and time spent after the visit and documentation. Orders: Orders Lipid Panel Today Z00.00 - Encounter for general adult medical examination without abnormal findings Complete Blood Count Auto Diff Today Z00.00 - Encounter for general adult medical examination without abnormal findings Free T4 (Free Thyroxine) Today Z00.00 - Encounter for general adult medical examination without abnormal findings TSH reflex Free T4 Today Z00.00 - Encounter for general adult medical examination without abnormal findings Vitamin B12 and Folate Today Z00.00 - Encounter for general adult medical examination without abnormal findings Vitamin D 25-OH (D2 and D3) Today Z00.00 - Encounter for general adult medical examination without abnormal findings IRON PROFILE Today Z00.00 - Encounter for general adult medical examination without abnormal findings AMB Hemoglobin A1c Today E11.65 - Type 2 diabetes mellitus with hyperglycemia Comprehensive Met. 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
== END 2024-02-06 08:26 | disposition home or self-care (01) ==
LOC: HO.HMGH 07:38
PROVIDERS: PCP Internal Medicine
DX: E11.65 Type 2 diabetes mellitus with hyperglycemia (principal)
CPT/HCPCS: 83036; 99214

== ENCOUNTER 2024-02-10 09:03 | Outpatient (REF) | payer OTHER, SELFPAY ==
[2024-02-10 09:40] LABS: MANUAL DIFF FLAG NO
[2024-02-10 10:06] LABS: Basophils Percent Auto 0.4 % (0-2); Eosinophils Absolute Auto 0.1 X10*3/uL (0.0-0.4); Eosinophils Percent Auto 1.5 % (0-4); Hemoglobin 12.9 g/dl (12.0-16.0); Imm Gran Abs Auto 0.02 X10*3/uL (0.00-0.03); Imm Gran Pct Auto 0.2 % (0.0-0.4); Lymphocytes Absolute Auto 2.1 X10*3/uL (1.2-4.9); Lymphocytes Percent Auto 24.5 % (20-40); Mean Corpuscular HGB Conc 32.3 g/dl (31.0-35.0); Mean Corpuscular Hemoglobin 25.1 pg (27.0-33.0); Mean Platelet Volume 10.4 fL (9.4-12.3); Monocytes Absolute Auto 0.5 X10*3/uL (0.1-1.2); Monocytes Percent Auto 5.4 % (2-11); Neutrophils Absolute Auto 5.8 x10*3/uL (2.0-8.3); Platelet Count 271 X10*3/uL (160-400); Red Blood Count 5.13 X10*6/uL (4.20-5.50); Red Cell Distribution Width 14.7 % (11.0-16.0); White Blood Count 8.6 X10*3/uL (4.8-10.8)
[2024-02-10 10:51] LABS: Alanine Aminotransferase 24 U/L (0-31); Albumin Level 3.6 g/dL (3.5-5.0); Alkaline Phosphatase 105 U/L (39-117); Anion Gap 9 (12-20); Aspartate Amino Transferase 22 U/L (5-31); Bilirubin Total 0.8 mg/dL (0.0-1.0); Blood Urea Nitrogen 11 mg/dL (9-16); Calcium 8.6 mg/dL (8.4-10.2); Carbon Dioxide 31 mmol/L (22-29); Chloride 105 mmol/L (96-108); Cholesterol 116 mg/dL (<200); Estimated Glomerular Filt Rate > 60; Glucose Random 92 mg/dL (60-115); HDL Cholesterol 32 mg/dL (>40); Iron 44 mcg/dL (30-160); LDL Cholesterol Calculated 62 mg/dL (<100); Percent Iron Saturation 15 % (15-50); Potassium 3.6 mmol/L (3.3-5.1); Sodium 141 mmol/L (135-145); Total Iron Binding Capacity 299 mcg/dL (228-428); Total Protein 7.1 g/dL (6.5-8.0); Triglycerides 113 mg/dL (<150); Unsaturated Iron Binding 255 ug/dL
[2024-02-10 10:56] LABS: Free T4 (Free Thyroxine) 1.03 ng/dL (0.71-1.85); TSH reflex Free T4 0.99 uIU/mL (0.32-4.0)
[2024-02-10 11:14] LABS: Folate 5.4 ng/mL (> or = 4.0); Vitamin B12 457 pg/mL (200-900)
[2024-02-15 15:14] LABS: Vitamin D 25-OH, D2 <4 ng/mL; Vitamin D 25-OH, D3 37 ng/mL; Vitamin D 25-OH, Total 37 ng/mL (30-100)
== END 2024-02-10 09:04 | disposition home or self-care (01) ==
LOC: HO.LAB 09:03
PROVIDERS: PCP Internal Medicine
DX: Z00.00 Encounter for general adult medical examination without abnormal findings (principal)
CPT/HCPCS: 36415; 80053; 80061; 82306; 82607; 82746; 83540; 84439; 84443; 85025

== ENCOUNTER 2024-06-25 11:27 | Outpatient (AMB) | payer OTHER, SELFPAY ==
--- NOTE | 2024-06-25 11:45 | A.OFFPC_ITS ---
Vital Signs 06/25/24 11:47 Height 5 ft 3 in Weight 243 lb 8 oz BMI 43.1 BP 110/68 Blood Pressure Location Lt brachial Position Sitting Pulse 60 Pulse Source Pulse Oximeter Pulse Oximetry (%) 97 Oxygen Delivery Method Room Air Intake Visit Reasons: 3 months Follow up Intake Note: Patient is here to follow up on HTN, DM, Hypercholesterolemia. Senior Media Buyer Required: No Electronics Repair Technician: Not Required per policy Accompanied by: Self / Same As Patient Allergies JASBIR Inhibitors [JASBIR INHIBITORS] Allergy (Severe, Verified 06/25/24 11:46) ANGIOEDEMA acetaminophen [From VICODIN] Allergy (Severe, Verified 06/25/24 11:46) ANGIOEDEMA hydrocodone [From VICODIN] Allergy (Severe, Verified 06/25/24 11:46) ANGIOEDEMA amlodipine Adverse Reaction (Intermediate, Unverified 06/25/24 12:23) leg swelling Tobacco use date assessed: 06/25/24 Dental Screening Dental Screen Date: 02/06/24 HPI 3 months Follow up HPI Details The patient is a 49-year-old female presenting with complaints related to leg edema. She reports that her legs have been swelling, particularly at the end of the day after work, and notes associated pruritus. The swelling is most pronounced after prolonged standing, suggesting a potential circulatory problem. She reports a history of taking amlodipine for hypertension, which was previously adjusted from 5 mg to 2.5 mg due to edema. There are no current heartburn issues reported. The review of systems is negative for dyspnea or fatigue, except mild tiredness attributed to possible issues with her CPAP machine, which she reports is set too strong and difficult to use. Her past medical history includes documented hypertension, hyperlipidemia, and obstructive sleep apnea managed with CPAP therapy. The patient also has a history of urinary tract infection treated successfully with antibiotics. She follows with a bariatric surgeon and has recently lost over 22 pounds, indicating weight management is part of her ongoing care. Current medications include atorvastatin, carvedilol, pantoprazole, and tramadol. Recently, she received her annual influenza vaccine and has completed her recommended immunizations, including her pneumococcal, tetanus, and zoster vaccines. The patient is compliant with regular health maintenance, including mammograms and routine blood work, which show stable glucose levels and normal complete blood count results. [facility] Medical History (Updated 06/25/24 @ 12:22 by Melina Barber MD) Coronary artery disease NSTEMI (non-ST elevated myocardial infarction) Rhinitis Acute sinusitis Leg abrasion Glaucoma Obesity Peripheral vascular disease Knee osteoarthritis GERD (gastroesophageal reflux disease) Hypercholesterolemia Insomnia B12 deficiency Hypertension Severe obstructive sleep apnea Non-STEMI (non-ST elevated myocardial infarction) Type 2 diabetes mellitus with hyperglycemia COPD (chronic obstructive pulmonary disease) DDD (degenerative disc disease), lumbar Surgical History History of gastric bypass Status post breast reduction Status post panniculectomy H/O left knee surgery History of surgery on arm LAP-BAND surgery status Family History Father Lung disease Diabetes Hypertension CVD (cardiovascular disease) Mother Diabetes Hypertension Maternal Grandmother Myocardial infarction Social History Housing: House Patient Tobacco Use Status: Former Tobacco user Tobacco use type: Cigarette e-Cigarette/Vaping Use: Never Used Second Hand Smoke Exposure: Yes service: No Current occupational status: unemployed and disabled Current occupation: Right hand dominate Cognitive needs: No Hearing needs: No Vision needs: Yes Questionnaire Thrive Questionnaire Date Thrive assessed: 07/10/22 AUDIT C Alcohol Use Questionnaire (AUDIT-C) 2. How many drinks containing alcohol do you have on a typical day when you are drinking?: 1 or 2 3. How often do you have six or more drinks on one occasion?: Never Total Score: 0 MARV-7 AMB Questionnaire MARV-7 Date MARV - 7 assessed: 07/12/23 Source: Developed by Drs. Parvez Bernstein, Dena Aguilar, Jcarlos Sherman and colleagues, with an educational deann from [employer]. Physical exam (Primary Care) Vital Signs: Last Vital Signs Pulse 60 06/25/24 11:47 BP 110/68 06/25/24 11:47 Pulse Ox 97 06/25/24 11:47 Oxygen Delivery Method Room Air 06/25/24 11:47 BMI result Body Mass Index 43.1 Tobacco/Smoking Status: Tobacco use Status Tobacco use date assessed 06/25/24 06/25/24 11:47 Patient Tobacco Use Status Former Tobacco user 06/25/24 11:47 Tobacco use type Cigarette 06/25/24 11:47 e-Cigarette/Vaping Use Never Used 06/25/24 11:47 Thrive Assessment: Date of Thrive Assessment Date Thrive assessed 07/10/22 06/25/24 11:47 Const General: alert; No acute distress Eyes Conjunctivae: conjunctivae normal Resp Auscultation: clear to auscultation bilaterally Cardio Rate: regular rate Rhythm: regular rhythm GI Inspection: Yes normal to inspection Extrem General: Yes normal to inspection and No edema Results AMB Hemoglobin A1c AMB Hemoglobin A1c 5.0 % Last Edit by ADRIAN Barber on 06/25/24 12:01 Results Reviewed Results Reviewed: Laboratory Last Values Hgb A1c (Clinic) 5.0 % (4.0-6.0) 06/25/24 11:47 Coding Level of Care Code Est Pt Level 4 (90396) Diagnoses Bariatric surgery status Z98.84 History of sleeve gastrectomy Z90.3 Severe obstructive sleep apnea G47.33 Type 2 diabetes mellitus with hyperglycemia, without long-term current use of insulin E11.65 Diabetes mellitus chcf insulin use: without chcf use Essential hypertension I10 Hypertension type: essential hypertension Hypercholesterolemia E78.00 Gastroesophageal reflux disease without esophagitis K21.9 Esophagitis presence: without esophagitis Class 3 severe obesity due to excess calories with serious comorbidity and body mass index (BMI) of 60.0 to 69.9 in adult E66.01; Z68.44 Obesity type: due to excess calories Obesity classification: adult class 3 (BMI >= 40) Serious obesity comorbidity presence: with serious comorbidity Body mass index: BMI 60.0-69.9 Peripheral vascular disease I73.9 Assessment & Plan Assessment & Plan (1) Bariatric surgery status: Comment: June 2023 duodenal ileal bypass Kat Code(s): Z98.84 - Bariatric surgery status Category: Surgical (2) History of sleeve gastrectomy: Comment: May 2021 robotic assisted laparoscopic removal of the lap band and conversion to sleeve gastrectomy Dr. Campbell 05/2021 Code(s): Z90.3 - Acquired absence of stomach [part of] Category: Surgical (3) Severe obstructive sleep apnea: Comment: Started on IVAPS intelligent volume assured pressure support Code(s): G47.33 - Obstructive sleep apnea (adult) (pediatric) Category: Medical (4) Type 2 diabetes mellitus with hyperglycemia: Code(s): E11.65 - Type 2 diabetes mellitus with hyperglycemia Category: Medical Qualifiers: Diabetes mellitus exterminator termite insulin use: without exterminator termite use Qualified Code(s): E11.65 - Type 2 diabetes mellitus with hyperglycemia (5) Hypertension: Comment: Coronary angiography March 2020 normal hypertension demand ischemia Code(s): I10 - Essential (primary) hypertension Category: Medical Qualifiers: Hypertension type: essential hypertension Qualified Code(s): I10 - Essential (primary) hypertension (6) Hypercholesterolemia: Code(s): E78.00 - Pure hypercholesterolemia, unspecified Category: Medical (7) GERD (gastroesophageal reflux disease): Code(s): K21.9 - Gastro-esophageal reflux disease without esophagitis Category: Medical Qualifiers: Esophagitis presence: without esophagitis Qualified Code(s): K21.9 - Gastro-esophageal reflux disease without esophagitis (8) Obesity: Code(s): E66.9 - Obesity, unspecified Category: Medical Qualifiers: Obesity type: due to excess calories Obesity classification: adult class 3 (BMI >= 40) Serious obesity comorbidity presence: with serious comorbidity Body mass index: BMI 60.0-69.9 Qualified Code(s): E66.01 - Morbid (severe) obesity due to excess calories; Z68.44 - Body mass index [BMI] 60.0- 69.9, adult (9) Peripheral vascular disease: Code(s): I73.9 - Peripheral vascular disease, unspecified Category: Medical Plan: When sitting down elevate the legs, exercise, and support stockings Plan - Monitor blood pressure at home following cessation of amlodipine due to edema; reevaluate the need for antihypertensive therapy, considering hydrochlorothiazide if necessary. - Encourage the use of compression stockings to manage leg edema, particularly when standing for prolonged periods. - Discuss referral to a vascular specialist if edema persists or worsens despite conservative management. - Review and adjust CPAP settings with Dr. Martins to ensure effective management of obstructive sleep apnea and address patient concerns about device discomfort and resultant fatigue. - Continue atorvastatin at 10 mg daily for hyperlipidemia; lipid profile is satisfactory. - Follow-up on the results of the recent mammogram; ensure the patient discusses these with the information systems security officer during the upcoming appointment. - Maintain adherence to bariatric follow-up, emphasizing continued weight management and nutritional supplementation. - Ensure continued compliance with preventive care and vaccinations, including annual flu shots. Orders: Orders AMB Hemoglobin A1c Today E11.65 - Type 2 diabetes mellitus with hyperglycemia Medications: Discontinued amlodipine Discontinued Reason: Change Referral Type 2.5 mg PO DAILY 90 tabs 3RF I10 - Essential (primary) hypertension
[2024-06-25 11:47] VITALS: BP 110/68; PULSE 60; O2SAT 97; BMI 43.1
== END 2024-06-25 12:26 | disposition home or self-care (01) ==
PROVIDERS: PCP Internal Medicine; Visit Provider Internal Medicine
DX: E11.65 Type 2 diabetes mellitus with hyperglycemia (principal); E66.01 Morbid (severe) obesity due to excess calories; Z68.44 Body mass index [BMI] 60.0-69.9, adult; I73.9 Peripheral vascular disease, unspecified; Z98.84 Bariatric surgery status; Z90.3 Acquired absence of stomach [part of]; G47.33 Obstructive sleep apnea (adult) (pediatric); I10 Essential (primary) hypertension; E78.00 Pure hypercholesterolemia, unspecified; K21.9 Gastro-esophageal reflux disease without esophagitis

== ENCOUNTER → 2024-06-25 11:27 | Outpatient (BNVA) | payer OTHER, SELFPAY | PROVIDERS: PCP Internal Medicine; Visit Provider Internal Medicine | DX: E11.65 Type 2 diabetes mellitus with hyperglycemia (principal); E11.51 Type 2 diabetes mellitus with diabetic peripheral angiopathy without gangrene; I10 Essential (primary) hypertension; E78.00 Pure hypercholesterolemia, unspecified; E78.5 Hyperlipidemia, unspecified; G47.33 Obstructive sleep apnea (adult) (pediatric); K21.9 Gastro-esophageal reflux disease without esophagitis; E66.01 Morbid (severe) obesity due to excess calories; Z68.44 Body mass index [BMI] 60.0-69.9, adult; Z99.89 Dependence on other enabling machines and devices; Z98.84 Bariatric surgery status; Z90.3 Acquired absence of stomach [part of]; Z87.440 Personal history of urinary (tract) infections | CPT/HCPCS: 83036; 99212 ==

== ENCOUNTER 2024-09-28 15:21 | Outpatient (AMB) | payer OTHER, SELFPAY ==
--- NOTE | 2024-09-28 15:27 | MHC.PC.OV ---
Vital Signs 09/28/24 15:28 Height 5 ft 3 in Weight 236 lb BMI 41.8 BP 130/80 Blood Pressure Location Lt brachial Position Sitting Pulse 72 Pulse Source Pulse Oximeter Temp 97.1 F Temp Source Temporal Artery Scan Pulse Oximetry (%) 98 Oxygen Delivery Method Room Air Intake Visit Reasons: 3 Months f/u County Nurse Required: No Accompanied by: Self / Same As Patient Allergies JASBIR Inhibitors [JASBIR INHIBITORS] Allergy (Severe, Verified 09/28/24 15:28) ANGIOEDEMA acetaminophen [From VICODIN] Allergy (Severe, Verified 09/28/24 15:28) ANGIOEDEMA hydrocodone [From VICODIN] Allergy (Severe, Verified 09/28/24 15:28) ANGIOEDEMA amlodipine Adverse Reaction (Intermediate, Unverified 09/28/24 15:28) leg swelling Medication List - Last Reconciled 09/28/24 by Melina Barber MD albuterol sulfate 2.5 mg (3 mL) inhalation Q4-6H PRN albuterol sulfate 90 mcg/actuation 2 puffs inhalation Q6H PRN atorvastatin 10 mg PO BEDTIME blood sugar diagnostic (FreeStyle Lite Strips) CHECK BLOOD SUGAR TWICE A DAY carvedilol 12.5 mg PO BID [HeavyDUTYshower bench As directed] [iVAPS EPAP 8 & TVA 8 MS 14 PS 6-20 HT. 64 inches with 2L in NREM with heated humidified EPAP in range 6-9 TVA 7.7 -9.4] lancets (FreeStyle Lancets) 28 gauge miscellaneous BID 90 days mometasone-formoterol 100-5 mcg/actuation (Dulera) 1 puff inhalation Q12H [oxygen As directed 2 L NC] pantoprazole 40 mg PO DAILY [Shower chair As directed] spironolactone 25 mg PO DAILY tramadol 50 mg PO Q8H PRN Tobacco use date assessed: 06/25/24 Dental Screening Dental Screen Date: 02/06/24 [facility] [place] Medical History (Updated 09/28/24 @ 15:59 by Melina Barber MD) Coronary artery disease NSTEMI (non-ST elevated myocardial infarction) Rhinitis Acute sinusitis Leg abrasion Glaucoma Obesity Peripheral vascular disease Knee osteoarthritis GERD (gastroesophageal reflux disease) Hypercholesterolemia Insomnia B12 deficiency Hypertension Severe obstructive sleep apnea Non-STEMI (non-ST elevated myocardial infarction) Type 2 diabetes mellitus with hyperglycemia COPD (chronic obstructive pulmonary disease) DDD (degenerative disc disease), lumbar Surgical History History of gastric bypass Status post breast reduction Status post panniculectomy H/O left knee surgery History of surgery on arm LAP-BAND surgery status Family History Father Lung disease Diabetes Hypertension CVD (cardiovascular disease) Mother Diabetes Hypertension Maternal Grandmother Myocardial infarction Social History Housing: House Patient Tobacco Use Status: Former Tobacco user Tobacco use type: Cigarette e-Cigarette/Vaping Use: Never Used Second Hand Smoke Exposure: Yes service: No Current occupational status: unemployed and disabled Current occupation: Right hand dominate Cognitive needs: No Hearing needs: No Vision needs: Yes Questionnaire PHQ-9 Over the last 2 weeks, how often have you been bothered by any of the following problems? 1. Little interest or pleasure in doing things: not at all 2. Feeling down, depressed, or hopeless: not at all 3. Trouble falling or staying asleep, or sleeping too much: not at all 4. Feeling tired or having little energy: not at all 5. Poor appetite or overeating: not at all 6. Feeling bad about yourself - or that you are a failure or have let yourself or your family down: not at all 7. Trouble concentrating on things, such as reading the newspaper or watching television: not at all 8. Moving or speaking so slowly that other people could have noticed. Or the opposite - being so fidgety or restless that you have been moving around a lot more than usual: not at all 9. Thoughts that you would be better off or of hurting yourself in some way: not at all Total score: 0 Depression Screening Interpretation: Negative Depression Screening Done: Yes Source: Developed by Drs. Parvez Bernstein, Dena Aguilar, Jcarlos Sherman and colleagues, with an educational deann from [employer]. Thrive Questionnaire Date Thrive assessed: 09/25/24 I am a: Patient What is your living situation today?: I have a steady place to live THRIVE Score: 0 MARV-7 AMB Questionnaire MARV-7 Date MARV - 7 assessed: 07/12/23 Source: Developed by Drs. Parvez Bernstein, Dena Aguilar, Jcarlos Sherman and colleagues, with an educational deann from [employer]. Physical exam (Primary Care) Vital Signs: Last Vital Signs Temp 97.1 F 09/28/24 15:28 Pulse 72 09/28/24 15:28 BP 130/80 09/28/24 15:28 Pulse Ox 98 09/28/24 15:28 Oxygen Delivery Method Room Air 09/28/24 15:28 BMI result Body Mass Index 41.8 Tobacco/Smoking Status: Tobacco use Status Tobacco use date assessed 06/25/24 09/28/24 15:28 Patient Tobacco Use Status Former Tobacco user 09/28/24 15:28 Tobacco use type Cigarette 09/28/24 15:28 e-Cigarette/Vaping Use Never Used 09/28/24 15:28 PHQ-9: PHQ-9 Score PHQ-9: Total score 0 09/28/24 15:57 Depression Screening Interpretation: Negative Thrive Assessment: Date of Thrive Assessment Date Thrive assessed 09/25/24 09/28/24 15:28 Const General: alert; No acute distress Eyes Conjunctivae: conjunctivae normal Resp Auscultation: clear to auscultation bilaterally Cardio Rate: regular rate Rhythm: regular rhythm GI Inspection: Yes normal to inspection Extrem General: Yes normal to inspection and No edema Results AMB Hemoglobin A1c AMB Hemoglobin A1c 4.9 % Last Edit by QASIM Albright on 09/28/24 15:56 Results Reviewed Results Reviewed: Laboratory Last Values Hgb A1c (Clinic) 4.9 % (4.0-6.0) 09/28/24 15:46 Coding Level of Care Code Est Pt Level 4 (72266) Complex EM visit Add On G2211 Diagnoses Type 2 diabetes mellitus with hyperglycemia, without long-term current use of insulin E11.65 Diabetes mellitus residential insulin use: without laborer marine terminal use Pulmonary emphysema, unspecified emphysema type J43.9 COPD type: emphysema Emphysema type: unspecified Severe obstructive sleep apnea G47.33 Essential hypertension I10 Hypertension type: essential hypertension Hypercholesterolemia E78.00 Gastroesophageal reflux disease without esophagitis K21.9 Esophagitis presence: without esophagitis History of sleeve gastrectomy Z90.3 Morbid obesity E66.01 Plantar fasciitis of left foot M72.2 Assessment & Plan Assessment & Plan (1) Type 2 diabetes mellitus with hyperglycemia: Code(s): E11.65 - Type 2 diabetes mellitus with hyperglycemia Category: Medical Qualifiers: Diabetes mellitus laborer marine terminal insulin use: without residential use Qualified Code(s): E11.65 - Type 2 diabetes mellitus with hyperglycemia Plan: Decrease the amount of carbohydrate intake, pasta, bread, rice and potatoes are all sugar and that is aside from all the sweet stuff, remember that fruits are good but they are Sweet also. (2) COPD (chronic obstructive pulmonary disease): Code(s): J44.9 - Chronic obstructive pulmonary disease, unspecified Category: Medical Qualifiers: COPD type: emphysema Emphysema type: unspecified Qualified Code(s): J43.9 - Emphysema, unspecified Plan: on Albuterol inhaler (3) Severe obstructive sleep apnea: Comment: Started on IVAPS intelligent volume assured pressure support Code(s): G47.33 - Obstructive sleep apnea (adult) (pediatric) Category: Medical Plan: will need to ff up with pulmonary for adjusmtent (4) Hypertension: Comment: Coronary angiography March 2020 normal hypertension demand ischemia Code(s): I10 - Essential (primary) hypertension Category: Medical Qualifiers: Hypertension type: essential hypertension Qualified Code(s): I10 - Essential (primary) hypertension Plan: Continue with blood pressure medication. Decrease salt intake and exercise on spironolactone carvedilol 25 mg twice a day (5) Hypercholesterolemia: Code(s): E78.00 - Pure hypercholesterolemia, unspecified Category: Medical Plan: Avoid fried foods, chicken skin, eggs, butter margarine, pastries and meat. Be it pork or beef they have a lot of cholesterol LDL goal of less than 100. Reviewed notes with Cardiology and cardiac catheterization was negative. Will monitor for the cholesterol (6) GERD (gastroesophageal reflux disease): Code(s): K21.9 - Gastro-esophageal reflux disease without esophagitis Category: Medical Qualifiers: Esophagitis presence: without esophagitis Qualified Code(s): K21.9 - Gastro-esophageal reflux disease without esophagitis Plan: Avoid the foods that causes that usually spicy foods, tomato products, juices, coffee, soda and foods that your sensitive to. After eating do not lie down, allow 3-4 hours before in lie down. And keep the head of bed above 30 degrees to avoid the acid from going up. (7) History of sleeve gastrectomy: Comment: May 2021 robotic assisted laparoscopic removal of the lap band and conversion to sleeve gastrectomy Dr. Campbell 05/2021 Code(s): Z90.3 - Acquired absence of stomach [part of] Category: Surgical Plan: Continue to follow-up with bariatric surgeon (8) Morbid obesity: Code(s): E66.01 - Morbid (severe) obesity due to excess calories Category: Medical Plan: Continue to lose the weight (9) Plantar fasciitis of left foot: Code(s): M72.2 - Plantar fascial fibromatosis Category: Medical Plan History of Present Illness The patient is a 49-year-old female presenting with a follow-up for chronic health issues and plantar fasciitis. Her medical history includes significant morbid obesity with a history of sleeve gastrectomy, controlled type 2 diabetes mellitus, essential hypertension, and severe obstructive sleep apnea. She has observed improved blood pressure and glucose levels associated with weight loss post-gastrectomy. She has a history of STEMI with diastolic heart failure but recent cardiac assessments showed normal coronary arteries and an ejection fraction of 55-60%. The patient's plantar fasciitis presents as consistent pain on the left foot's side, particularly marked upon standing after rest. She denies falling or sustaining recent injuries, and the condition appears to improve with massage and Epsom salt soaks. She reported adherence to regular use of her CPAP machine, although adjustments may be needed due to discomfort linked with weight changes. Recent labs reflect good cholesterol management with an LDL level within goal ranges. Health Maintenance - Cholesterol management: LDL level of 62 as of February 2024. - CPAP usage adjustment pending with Dr. Martins due to weight loss. - Last A1c check within normal range; ongoing diabetes management. - Vaccination status: Up to date on tetanus, shingles, and pneumonia vaccines. - Scheduled physical exam with CHRISTOPHER Garcia. 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 - Engages in weight management practices post-gastrectomy. Review of Systems - Musculoskeletal: Reports left foot pain consistent with plantar fasciitis. - Respiratory: Denies recent shortness of breath with use of albuterol once weekly. - Cardiovascular: No current chest pain reported. Physical Exam - Musculoskeletal- Palpation confirms tenderness on the side of the left foot. No other abnormalities noted. Results - Cardiac catheterization (2022): Normal coronary arteries, EF 55-60%. - Recent Lipid panel (February 2024): LDL 62 mg/dL. - Previous A1c in normal range (June 2024). Plan 1. 5 mg twice a day due to weight loss, allowing for blood pressure stabilization. Diabetes and cholesterol management remain stable with recent tests showing controlled levels, enabling continued monitoring. CPAP adjustments will be facilitated by Dr. Martins given the patient's weight loss, with regular health maintenance and vaccination status verified. Continuous follow-up with cardiology and podiatry is encouraged to optimize care.: Patient was informed and verbally consented to the use of an ambient scribe for clinic note documentation during this visit. Discussion Notes During our discussion, I confirmed the conservative treatment approach for plantar fasciitis and explained the benefits of Voltaren gel as a topical anti-inflammatory to minimize gastric complications. We revisited the reduction of carvedilol dosage due to weight loss to stabilize blood pressure. The importance of regular CPAP use was emphasized, with upcoming adjustments to be managed by Dr. Martins. I provided guidance on adhering to the prescribed diabetes and cholesterol management protocols. I ensured the patient understands her health maintenance plan, including up-to-date vaccinations and scheduling of her routine physical with CHRISTOPHER Garcia. A referral for podiatry was placed to further address the management of plantar fasciitis. Patient Instructions Orders: Referrals Podiatry Referral M72.2 - Plantar fascial fibromatosis
[2024-09-28 15:28] VITALS: BP 130/80; PULSE 72; TEMP 36.2; O2SAT 98; BMI 41.8
== END 2024-09-28 16:09 | disposition home or self-care (01) ==
LOC: HO.HMCH 15:22
PROVIDERS: PCP Internal Medicine; Visit Provider Internal Medicine
DX: E11.65 Type 2 diabetes mellitus with hyperglycemia (principal); J43.9 Emphysema, unspecified; E66.01 Morbid (severe) obesity due to excess calories; Z68.41 Body mass index [BMI] 40.0-44.9, adult; G47.33 Obstructive sleep apnea (adult) (pediatric); I10 Essential (primary) hypertension; E78.00 Pure hypercholesterolemia, unspecified; K21.9 Gastro-esophageal reflux disease without esophagitis; Z90.3 Acquired absence of stomach [part of]; M72.2 Plantar fascial fibromatosis

== ENCOUNTER → 2024-09-28 15:21 | Outpatient (BNVA) | payer OTHER, SELFPAY | PROVIDERS: PCP Internal Medicine; Visit Provider Internal Medicine | DX: E11.65 Type 2 diabetes mellitus with hyperglycemia (principal); J43.9 Emphysema, unspecified; G47.33 Obstructive sleep apnea (adult) (pediatric); E78.00 Pure hypercholesterolemia, unspecified; I10 Essential (primary) hypertension; K21.9 Gastro-esophageal reflux disease without esophagitis; E66.01 Morbid (severe) obesity due to excess calories; Z68.41 Body mass index [BMI] 40.0-44.9, adult; M72.2 Plantar fascial fibromatosis; Z90.3 Acquired absence of stomach [part of]; Z71.3 Dietary counseling and surveillance | CPT/HCPCS: 83036; 99212 ==

== ENCOUNTER 2024-10-02 10:13 | Outpatient (AMB) | payer OTHER, SELFPAY ==
--- NOTE | 2024-10-02 10:16 | A.OFFPC_ITS ---
Vital Signs 10/02/24 10:19 Height 5 ft 3 in Weight 237 lb BMI 42.0 BP 130/60 Blood Pressure Location Lt brachial Position Sitting Pulse 55 Pulse Source Pulse Oximeter Temp 97.1 F Temp Source Temporal Artery Scan Pulse Oximetry (%) 97 Oxygen Delivery Method Room Air Intake Visit Reasons: annual exam Intake Note: Patient is here today for a physical. 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 Inspector Required: No Voice Data Communications Engineer: Not Required per policy Accompanied by: Self / Same As Patient Allergies JASBIR Inhibitors [JASBIR INHIBITORS] Allergy (Severe, Verified 10/02/24 10:30) ANGIOEDEMA acetaminophen [From VICODIN] Allergy (Severe, Verified 10/02/24 10:30) ANGIOEDEMA hydrocodone [From VICODIN] Allergy (Severe, Verified 10/02/24 10:30) ANGIOEDEMA amlodipine Adverse Reaction (Intermediate, Verified 10/02/24 10:30) leg swelling Medication List - Last Reconciled 10/02/24 by Radha Peters PA-C albuterol sulfate 2.5 mg (3 mL) inhalation Q4-6H PRN albuterol sulfate 90 mcg/actuation 2 puffs inhalation Q6H PRN atorvastatin 10 mg PO BEDTIME blood sugar diagnostic (FreeStyle Lite Strips) CHECK BLOOD SUGAR TWICE A DAY carvedilol 12.5 mg PO BID [HeavyDUTYshower bench As directed] [iVAPS EPAP 8 & TVA 8 NJ 14 PS 6-20 HT. 64 inches with 2L in NREM with heated humidified EPAP in range 6-9 TVA 7.7 -9.4] lancets (FreeStyle Lancets) 28 gauge miscellaneous BID 90 days mometasone-formoterol 100-5 mcg/actuation (Dulera) 1 puff inhalation Q12H [oxygen As directed 2 L NC] pantoprazole 40 mg PO DAILY [Shower chair As directed] spironolactone 25 mg PO DAILY tramadol 50 mg PO Q8H PRN Tobacco use date assessed: 10/02/24 Dental Screening Dental Screen Date: 10/02/24 Did you have a dental visit in the last 12 months?: Yes Did you have a dental problem in the last 6 months where you did not have access to dental care?: No Was dental information given to patient?: Patient has dentist HPI annual exam HPI Details 49 year old female with past medical his tory of COPD, degenerative disc disease, diabetes mellitus, obstructive sleep apnea, hypertension, hypercholesterolemia, GERD, and generalized anxiety disorder last seen by Dr. Barber 09/2024 coming in for annual exam.? Presenting for an annual physical examination. Obstructive sleep apnea is poorly managed due to over-calibrated CPAP following significant weight reduction. Edema in the lower extremities is maintained with Lasix and compression stockings. Mammogram: 07/2023 is due Pap smear: seeing scrap yard worker on Saturday for annual pap Colonoscopy: colonoscopy through [facility] will be due in 2 years Vaccinations: Tetanus up-to-date 2015, pneumonia completed 2023, COVID and flu up-to-date COUNTS INCLUDE 234 BEDS AT [facility] Medical History Coronary artery disease NSTEMI (non-ST elevated myocardial infarction) Rhinitis Acute sinusitis Leg abrasion Glaucoma Obesity Peripheral vascular disease Knee osteoarthritis GERD (gastroesophageal reflux disease) Hypercholesterolemia Insomnia B12 deficiency Hypertension Severe obstructive sleep apnea Non-STEMI (non-ST elevated myocardial infarction) Type 2 diabetes mellitus with hyperglycemia COPD (chronic obstructive pulmonary disease) DDD (degenerative disc disease), lumbar Surgical History History of gastric bypass Status post breast reduction Status post panniculectomy H/O left knee surgery History of surgery on arm LAP-BAND surgery status Family History Father Lung disease Diabetes Hypertension CVD (cardiovascular disease) Mother Diabetes Hypertension Maternal Grandmother Myocardial infarction Social History Housing: House Patient Tobacco Use Status: Former Tobacco user Tobacco use type: Cigarette e-Cigarette/Vaping Use: Never Used Second Hand Smoke Exposure: Yes service: No Current occupational status: unemployed and disabled Current occupation: Right hand dominate Cognitive needs: No Hearing needs: No Vision needs: Yes Questionnaire PHQ-9 Over the last 2 weeks, how often have you been bothered by any of the following problems? 1. Little interest or pleasure in doing things: not at all 2. Feeling down, depressed, or hopeless: not at all 3. Trouble falling or staying asleep, or sleeping too much: not at all 4. Feeling tired or having little energy: several days 5. Poor appetite or overeating: not at all 6. Feeling bad about yourself - or that you are a failure or have let yourself or your family down: not at all 7. Trouble concentrating on things, such as reading the newspaper or watching television: not at all 8. Moving or speaking so slowly that other people could have noticed. Or the opposite - being so fidgety or restless that you have been moving around a lot more than usual: not at all 9. Thoughts that you would be better off or of hurting yourself in some way: not at all Total score: 1 Depression Screening Interpretation: Negative Depression Screening Done: Yes Source: Developed by Drs. Parvez Bernstein, Dena Aguilar, Jcarlos Sherman and colleagues, with an educational deann from [employer]. Thrive Questionnaire Date Thrive assessed: 09/25/24 I am a: Patient What is your living situation today?: I have a steady place to live Within the past 12 months, did the food you bought not last and you didn't have the money to get more?: Often true Within the past 12 months, did you worry whether your food would run out before you got money to buy more?: Often true Do you have trouble paying for medicines?: No Do you have trouble getting transportation to medical appointments?: No Do you have trouble paying your heating and electricity bill?: No Do you have trouble taking care of your child, family member or friend?: No Do you have trouble with day-to-day activities such as bathing, preparing meals, shopping, managing finances, etc.?: No Are you currently unemployed and looking for a job?: No Are you interested in more education?: No Please select the resources that you would like help with: None Currently or been in a relationship where the following occur: No concerns reported THRIVE Score: 2 AUDIT C Alcohol Use Questionnaire (AUDIT-C) 1. How often do you have a drink containing alcohol?: Never Total Score: 0 MARV-7 AMB Questionnaire MARV-7 Date MARV - 7 assessed: 07/12/23 Feeling nervous, anxious, or on edge: 0 = Not at all Not being able to stop or control worryin = Not at all Worrying too much about different things: 0 = Not at all Trouble relaxin = Not at all Being so restless that it is hard to sit still: 0 = Not at all Becoming easily annoyed or irritable: 0 = Not at all Feeling afraid as if something awful might happen: 0 = Not at all Total MARV-7 score (0-4 normal; 5-9 mild; 10-14 moderate; 15-21 severe): 0 Source: Developed by Drs. Parvez Bernstein, Dena Aguilar, Jcarlos Sherman and colleagues, with an educational deann from [employer]. MARV-7 Assessment Billing MARV-7 Assessment Tool: MARV-7 Assessment 72113 Review of Systems Const Denies body aches, Denies chills, Denies fever(s), Denies headache(s) and Denies poor appetite Eyes Reports no additional complaints ENT Denies dysphagia, Denies dizziness, Denies headache(s) and Denies odynophagia Card Denies chest pain, Denies syncope, Denies edema, Denies irregular heart rhythm, Denies lightheadedness and Denies dyspnea Resp Denies cough and Denies dyspnea GI Denies abdominal pain, Denies constipation, Denies dysphagia, Denies diarrhea, Denies nausea, Denies odynophagia and Denies vomiting Reports no additional complaints Musc Reports no additional complaints and Denies abnormal gait Skin/Breast Reports system reviewed and no additional complaints, except as documented Neuro Denies abnormal gait, Denies dizziness, Denies syncope and Denies headache(s) Psych Reports no additional complaints Physical exam (Primary Care) Vital Signs: Last Vital Signs Temp 97.1 F 10/02/24 10:19 Pulse 55 10/02/24 10:19 BP 130/60 10/02/24 10:19 Pulse Ox 97 10/02/24 10:19 Oxygen Delivery Method Room Air 10/02/24 10:19 BMI result Body Mass Index 42.0 Tobacco/Smoking Status: Tobacco use Status Tobacco use date assessed 10/02/24 10/02/24 10:23 Patient Tobacco Use Status Former Tobacco user 10/02/24 10:23 Tobacco use type Cigarette 10/02/24 10:23 e-Cigarette/Vaping Use Never Used 10/02/24 10:23 PHQ-9: PHQ-9 Score PHQ-9: Total score 1 10/02/24 10:23 Depression Screening Interpretation: Negative Thrive Assessment: Date of Thrive Assessment Date Thrive assessed 09/25/24 10/02/24 10:23 Currently or been in a relationship where the following occur: No concerns r eported Const General: cooperative, healthy appearing, comfortable and no acute distress Orientation/consciousness: patient oriented x3 HENMT Head: Yes normocephalic Ears: hearing grossly normal bilaterally General nose exam: Normal external nose present Eyes General: appearance normal, both eyes and all related structures Conjunctivae: conjunctivae normal Neck Neck: Yes full ROM and Yes no lymphadenopathy Resp Effort & Inspection: normal respiratory effort Auscultation: clear to auscultation bilaterally, no crackles, no rales, no rhonchi and no wheezes Cardio Rate: regular rate Rhythm: regular rhythm Skin General skin exam: no rashes or lesions noted Neuro General: patient oriented x3 Gait exam (Neuro): Normal gait present Extrem Other: Mild swelling of bilateral lower extremities General: Yes normal to inspection, Yes full ROM and No edema Psych Affect: normal affect Attitude: cooperative Insight: Good insight present (Psych) Judgement: Good judgement present (Psych) Coding Level of Care Code Est Pt Prev Care 40-64y(98441) Diagnoses Morbid obesity E66.01 Peripheral vascular disease I73.9 Annual physical exam Z00.00 Cervical cancer screening Z12.4 Breast cancer screening by mammogram Z12.31 History of sleeve gastrectomy Z90.3 Essential hypertension I10 Hypertension type: essential hypertension Hypercholesterolemia E78.00 Gastroesophageal reflux disease without esophagitis K21.9 Esophagitis presence: without esophagitis Generalized anxiety disorder F41.1 Pulmonary emphysema, unspecified emphysema type J43.9 COPD type: emphysema Emphysema type: unspecified Type 2 diabetes mellitus with hyperglycemia, without long-term current use of i nsulin E11.65 Diabetes mellitus press tender long goods insulin use: without mcfp use Severe obstructive sleep apnea G47.33 DDD (degenerative disc disease), lumbar M51.36 Plantar fasciitis of left foot M72.2 Additional Codes MARV-7 Assessment Billing - MARV-7 Assessment Tool: MARV-7 Assessment 48760 ([id number]) Assessment & Plan Assessment & Plan (1) Morbid obesity: Code(s): E66.01 - Morbid (severe) obesity due to excess calories Category: Medical Plan: Healthy diet and regular exercise is encouraged. (2) Peripheral vascular disease: Code(s): I73.9 - Peripheral vascular disease, unspecified Category: Medical Plan: Advised patient to use compression stockings, Lasix as prescribed, exercise as tolerated and elevate the legs. (3) Annual physical exam: Code(s): Z00.00 - Encounter for general adult medical examination without abnormal findings Category: Medical Plan: Patient is overdue on mammogram and Pap smear screening however appointments have been coordinated to address these. Blood work is up-to-date and has been reviewed today. Advised patient to follow up with Dr. Barber at next appointment. (4) Cervical cancer screening: Code(s): Z12.4 - Encounter for screening for malignant neoplasm of cervix Category: Medical Plan: Patient has a appointment next week with [facility] gynecology for updated Pap smear (5) Breast cancer screening by mammogram: Code(s): Z12.31 - Encounter for screening mammogram for malignant neoplasm of breast Category: Medical Plan: Advised patient to reach out to [facility] for scheduling of updated mammogram. (6) History of sleeve gastrectomy: Comment: May 2021 robotic assisted laparoscopic removal of the lap band and conversion to sleeve gastrectomy Dr. Campbell 05/2021 Code(s): Z90.3 - Acquired absence of stomach [part of] Category: Surgical Plan: Healthy diet and regular exercise is encouraged. Continue to monitor vitamin level (7) Hypertension: Comment: Coronary angiography March 2020 normal hypertension demand ischemia Code(s): I10 - Essential (primary) hypertension Category: Medical Qualifiers: Hypertension type: essential hypertension Qualified Code(s): I10 - Essential (primary) hypertension Plan: Continue on current blood pressure medication. Avoid salt intake and encourage healthy diet and regular exercise. (8) Hypercholesterolemia: Code(s): E78.00 - Pure hypercholesterolemia, unspecified Category: Medical Plan: Avoid foods that are high in cholesterol such as red meat, fried foods, eggs and baked goods. Triglyceride goal of less than 150 and LDL goal of less than 100. Continue on atorvastatin (9) GERD (gastroesophageal reflux disease): Code(s): K21.9 - Gastro-esophageal reflux disease without esophagitis Category: Medical Qualifiers: Esophagitis presence: without esophagitis Qualified Code(s): K21.9 - Gastro-esophageal reflux disease without esophagitis Plan: Avoid trigger foods such as citrus, tomato products, soda, caffeine, spicy foods and other foods that may be irritating to your stomach. Avoid laying flat 3-4 hours after eating and elevate the head of the bed 30 degrees to prevent acid from moving into the esophagus. Continue on pantoprazole (10) Generalized anxiety disorder: Code(s): F41.1 - Generalized anxiety disorder Category: Medical Plan: Denying symptoms of anxiety or depression at this time. (11) COPD (chronic obstructive pulmonary disease): Code(s): J44.9 - Chronic obstructive pulmonary disease, unspecified Category: Medical Qualifiers: COPD type: emphysema Emphysema type: unspecified Qualified Code(s): J43.9 - Emphysema, unspecified Plan: Continue on current inhalers feels breathing is well managed at this time. (12) Type 2 diabetes mellitus with hyperglycemia: Code(s): E11.65 - Type 2 diabetes mellitus with hyperglycemia Category: Medical Qualifiers: Diabetes mellitus mcfp insulin use: without press tender long goods use Qualified Code(s): E11.65 - Type 2 diabetes mellitus with hyperglycemia Plan: Decrease the amount of carbohydrates such as pasta, bread, rice, and potatoes and limit the amount of sweets. Although fruits are generally healthy they should be eaten in moderation as they are still high in sugar. Hemoglobin A1c goal of less than 7%. Last A1c 4.9% (13) Severe obstructive sleep apnea: Comment: Started on IVAPS intelligent volume assured pressure support Code(s): G47.33 - Obstructive sleep apnea (adult) (pediatric) Category: Medical Plan: Uses CPAP faithfully at least 4 hours a night and benefits from this therapy. (14) DDD (degenerative disc disease), lumbar: Code(s): M51.36 - Other intervertebral disc degeneration, lumbar region Category: Medical Plan: Continue with gentle stretching and pain management with tramadol. (15) Plantar fasciitis of left foot: Code(s): M72.2 - Plantar fascial fibromatosis Category: Medical Plan: Patient was referred to Podiatry at last visit by Dr. Sunil Cornelius This note was constructed using voice recognition software. While every effort has been made to ensure accuracy and epic ambulatory analysts, still areas may have been included sometimes these areas may affect the content or meeting of the given symptoms. Total time spent caring for the patient today was 30 minutes. This includes time spent before the visit reviewing the chart, time spent during the visit, and time spent after the visit and documentation. Patient was informed and verbally consented to the use of an ambient scribe for clinic note documentation during this visit.
[2024-10-02 10:19] VITALS: BP 130/60; PULSE 55; TEMP 36.2; O2SAT 97; BMI 42.0
== END 2024-10-02 10:47 | disposition home or self-care (01) ==
LOC: HO.HMCH 10:14
PROVIDERS: PCP Internal Medicine
DX: Z00.00 Encounter for general adult medical examination without abnormal findings (principal); E66.01 Morbid (severe) obesity due to excess calories; Z68.41 Body mass index [BMI] 40.0-44.9, adult; I73.9 Peripheral vascular disease, unspecified; J43.9 Emphysema, unspecified; E11.65 Type 2 diabetes mellitus with hyperglycemia; Z12.31 Encounter for screening mammogram for malignant neoplasm of breast; Z90.3 Acquired absence of stomach [part of]; I10 Essential (primary) hypertension; E78.00 Pure hypercholesterolemia, unspecified; K21.9 Gastro-esophageal reflux disease without esophagitis; F41.1 Generalized anxiety disorder

== ENCOUNTER → 2024-10-02 10:13 | Outpatient (BNVA) | payer OTHER, SELFPAY | PROVIDERS: PCP Internal Medicine | DX: Z00.00 Encounter for general adult medical examination without abnormal findings (principal); E66.01 Morbid (severe) obesity due to excess calories; Z68.41 Body mass index [BMI] 40.0-44.9, adult; I73.9 Peripheral vascular disease, unspecified; Z90.3 Acquired absence of stomach [part of]; I10 Essential (primary) hypertension; E78.00 Pure hypercholesterolemia, unspecified; K21.9 Gastro-esophageal reflux disease without esophagitis; F41.1 Generalized anxiety disorder; J43.9 Emphysema, unspecified; E11.65 Type 2 diabetes mellitus with hyperglycemia; G47.33 Obstructive sleep apnea (adult) (pediatric); M72.2 Plantar fascial fibromatosis; M51.360 Other intervertebral disc degeneration, lumbar region with discogenic back pain only; Z71.3 Dietary counseling and surveillance | CPT/HCPCS: 96127; 99396 ==

== ENCOUNTER 2024-12-29 15:36 | Outpatient (AMB) | payer OTHER, SELFPAY ==
[2024-12-29 15:38] VITALS: BP 112/60; PULSE 60; O2SAT 95; BMI 42.4
--- NOTE | 2024-12-29 15:38 | MHC.PC.OV ---
Vital Signs 12/29/24 15:38 Height 5 ft 3 in Weight 239 lb 4 oz BMI 42.4 BP 112/60 Blood Pressure Location Lt brachial Position Sitting Pulse 60 Pulse Source Pulse Oximeter Pulse Oximetry (%) 95 Oxygen Delivery Method Room Air Intake Visit Reasons: DM , plantar fasciitis Turnaround Planner Required: No Accompanied by: Self / Same As Patient Allergies JASBIR Inhibitors (JASBIR INHIBITORS) Allergy (Severe, Verified 12/29/24 15:38) ANGIOEDEMA acetaminophen (From VICODIN) Allergy (Severe, Verified 12/29/24 15:38) ANGIOEDEMA hydrocodone (From VICODIN) Allergy (Severe, Verified 12/29/24 15:38) ANGIOEDEMA amlodipine Adverse Reaction (Intermediate, Verified 12/29/24 15:38) leg swelling Medication List - Last Reconciled 12/29/24 by Melina Barber MD albuterol sulfate 2.5 mg (3 mL) inhalation Q4-6H PRN albuterol sulfate 90 mcg/actuation 2 puffs inhalation Q6H PRN atorvastatin 10 mg PO BEDTIME blood sugar diagnostic (FreeStyle Lite Strips) CHECK BLOOD SUGAR TWICE A DAY carvedilol 12.5 mg PO BID [HeavyDUTYshower bench As directed] [iVAPS EPAP 8 & TVA 8 IN 14 PS 6-20 HT. 64 inches with 2L in NREM with heated humidified EPAP in range 6-9 TVA 7.7 -9.4] lancets (FreeStyle Lancets) 28 gauge miscellaneous BID 90 days lidocaine 4% (Salonpas (lidocaine)) 1 patch topical DAILY lidocaine 4% (Salonpas (lidocaine)) 1 patch topical TID PRN mometasone-formoterol 100-5 mcg/actuation (Dulera) 1 puff inhalation Q12H [oxygen As directed 2 L NC] pantoprazole 40 mg PO DAILY [Shower chair As directed] spironolactone 25 mg PO DAILY tizanidine 2 mg PO TID PRN tizanidine mg PO tramadol 50 mg PO Q8H PRN Tobacco use date assessed: 12/29/24 Dental Screening Dental Screen Date: 12/29/24 Did you have a dental visit in the last 12 months?: Yes Did you have a dental problem in the last 6 months where you did not have access to dental care?: No Was dental information given to patient?: Patient has dentist HPI DM , plantar fasciitis HPI Details R shoulder pain - lidocaine patches and muscles tizanidine PFSH Medical History Coronary artery disease NSTEMI (non-ST elevated myocardial infarction) Rhinitis Acute sinusitis Leg abrasion Glaucoma Obesity Peripheral vascular disease Knee osteoarthritis GERD (gastroesophageal reflux disease) Hypercholesterolemia Insomnia B12 deficiency Hypertension Severe obstructive sleep apnea Non-STEMI (non-ST elevated myocardial infarction) Type 2 diabetes mellitus with hyperglycemia COPD (chronic obstructive pulmonary disease) DDD (degenerative disc disease), lumbar Surgical History History of gastric bypass Status post breast reduction Status post panniculectomy H/O left knee surgery History of surgery on arm LAP-BAND surgery status Family History Father Lung disease Diabetes Hypertension CVD (cardiovascular disease) Mother Diabetes Hypertension Maternal Grandmother Myocardial infarction Social History Housing: House Patient Tobacco Use Status: Former Tobacco user Tobacco use type: Cigarette e-Cigarette/Vaping Use: Never Used Second Hand Smoke Exposure: Yes service: No Current occupational status: unemployed and disabled Current occupation: Right hand dominate Cognitive needs: No Hearing needs: No Vision needs: Yes Questionnaire PHQ-9 Over the last 2 weeks, how often have you been bothered by any of the following problems? 1. Little interest or pleasure in doing things: not at all 2. Feeling down, depressed, or hopeless: not at all 3. Trouble falling or staying asleep, or sleeping too much: not at all 4. Feeling tired or having little energy: several days 5. Poor appetite or overeating: not at all 6. Feeling bad about yourself - or that you are a failure or have let yourself or your family down: not at all 7. Trouble concentrating on things, such as reading the newspaper or watching television: not at all 8. Moving or speaking so slowly that other people could have noticed. Or the opposite - being so fidgety or restless that you have been moving around a lot more than usual: not at all 9. Thoughts that you would be better off or of hurting yourself in some way: not at all Total score: 1 Depression Screening Interpretation: Negative Depression Screening Done: Yes Source: Developed by Drs. Parvez Bernstein, Dena Aguilar, Jcarlos Sherman and colleagues, with an educational deann from [employer]. Thrive Questionnaire Date Thrive assessed: 12/29/24 I am a: Patient What is your living situation today?: I have a steady place to live Within the past 12 months, did the food you bought not last and you didn't have the money to get more?: Often true Within the past 12 months, did you worry whether your food would run out before you got money to buy more?: Often true Do you have trouble paying for medicines?: No Do you have trouble getting transportation to medical appointments?: No Do you have trouble paying your heating and electricity bill?: No Do you have trouble taking care of your child, family member or friend?: No Do you have trouble with day-to-day activities such as bathing, preparing meals, shopping, managing finances, etc.?: No Are you currently unemployed and looking for a job?: No Are you interested in more education?: No Please select the resources that you would like help with: None Currently or been in a relationship where the following occur: No concerns reported THRIVE Score: 2 AUDIT C Alcohol Use Questionnaire (AUDIT-C) 1. How often do you have a drink containing alcohol?: Monthly or less 2. How many drinks containing alcohol do you have on a typical day when you are drinking?: 1 or 2 3. How often do you have six or more drinks on one occasion?: Never Total Score: 1 MARV-7 AMB Questionnaire MARV-7 Date MARV - 7 assessed: 12/29/24 Feeling nervous, anxious, or on edge: 0 = Not at all Not being able to stop or control worryin = Not at all Worrying too much about different things: 0 = Not at all Trouble relaxin = Not at all Being so restless that it is hard to sit still: 0 = Not at all Becoming easily annoyed or irritable: 0 = Not at all Feeling afraid as if something awful might happen: 0 = Not at all Total MARV-7 score (0-4 normal; 5-9 mild; 10-14 moderate; 15-21 severe): 0 Source: Developed by Drs. Parvez Bernstein, Dena Aguilar, Jcarlos Sherman and colleagues, with an educational deann from [employer]. MARV-7 Assessment Billing AMRV-7 Assessment Tool: MARV-7 Assessment 14794 Physical exam (Primary Care) Vital Signs: Last Vital Signs Pulse 60 12/29/24 15:38 BP 112/60 12/29/24 15:38 Pulse Ox 95 12/29/24 15:38 Oxygen Delivery Method Room Air 12/29/24 15:38 BMI result Body Mass Index 42.4 Tobacco/Smoking Status: Tobacco use Status Tobacco use date assessed 12/29/24 12/29/24 15:41 Patient Tobacco Use Status Former Tobacco user 12/29/24 15:41 Tobacco use type Cigarette 12/29/24 15:41 e-Cigarette/Vaping Use Never Used 12/29/24 15:41 PHQ-9: PHQ-9 Score PHQ-9: Total score 1 12/29/24 15:51 Depression Screening Interpretation: Negative Thrive Assessment: Date of Thrive Assessment Date Thrive assessed 12/29/24 12/29/24 15:41 Currently or been in a relationship where the following occur: No concerns reported Const General: alert; No acute distress Eyes Conjunctivae: conjunctivae normal Resp Auscultation: clear to auscultation bilaterally Cardio Rate: regular rate Rhythm: regular rhythm GI Inspection: Yes normal to inspection Extrem General: Yes normal to inspection and No edema Results AMB Hemoglobin A1c AMB Hemoglobin A1c 4.9 % Last Edit by ADRIAN Hough on 12/29/24 15:52 Results Reviewed Results Reviewed: Laboratory Last Values Hgb A1c (Clinic) 4.9 % (4.0-6.0) 12/29/24 15:50 Coding Level of Care Code Est Pt Level 4 (24026) Complex EM visit Add On G2211 Diagnoses Type 2 diabetes mellitus with hyperglycemia, without long-term current use of insulin E11.65 Diabetes mellitus superintendent terminal insulin use: without superintendent terminal use Essential hypertension I10 Hypertension type: essential hypertension History of sleeve gastrectomy Z90.3 Gastroesophageal reflux disease without esophagitis K21.9 Esophagitis presence: without esophagitis Severe obstructive sleep apnea G47.33 Right shoulder pain M25.511 Contusion of second toe, left S90.122A Additional Codes MARV-7 Assessment Billing - MARV-7 Assessment Tool: MARV-7 Assessment 80142 ([id number]) Assessment & Plan Assessment & Plan (1) Type 2 diabetes mellitus with hyperglycemia: Code(s): E11.65 - Type 2 diabetes mellitus with hyperglycemia Category: Medical Qualifiers: Diabetes mellitus fdc insulin use: without superintendent terminal use Qualified Code(s): E11.65 - Type 2 diabetes mellitus with hyperglycemia Plan: Decrease the amount of carbohydrate intake, pasta, bread, rice and potatoes are all sugar and that is aside from all the sweet stuff, remember that fruits are good but they are Sweet also. Patient's sugar is under control diet pfeiffer (2) Hypertension: Comment: Coronary angiography March 2020 normal hypertension demand ischemia Code(s): I10 - Essential (primary) hypertension Category: Medical Qualifiers: Hypertension type: essential hypertension Qualified Code(s): I10 - Essential (primary) hypertension Plan: Continue with blood pressure medication. Decrease salt intake and exercise on spironolactone carvedilol 12.5 mg twice a day (3) History of sleeve gastrectomy: Comment: May 2021 robotic assisted laparoscopic removal of the lap band and conversion to sleeve gastrectomy Dr. Campbell 05/2021 Code(s): Z90.3 - Acquired absence of stomach [part of] Category: Surgical Plan: Continue to follow-up with bariatric surgery (4) GERD (gastroesophageal reflux disease): Code(s): K21.9 - Gastro-esophageal reflux disease without esophagitis Category: Medical Qualifiers: Esophagitis presence: without esophagitis Qualified Code(s): K21.9 - Gastro-esophageal reflux disease without esophagitis Plan: Avoid the foods that causes that usually spicy foods, tomato products, juices, coffee, soda and foods that your sensitive to. After eating do not lie down, allow 3-4 hours before in lie down. And keep the head of bed above 30 degrees to avoid the acid from going up. (5) Severe obstructive sleep apnea: Comment: Started on IVAPS intelligent volume assured pressure support Code(s): G47.33 - Obstructive sleep apnea (adult) (pediatric) Category: Medical Plan: Continue to use the CPAP more than 4 hours a night and benefits from this. Patient has a planned repeat sleep study under pulmonary due to the weight loss. (6) Right shoulder pain: Code(s): M25.511 - Pain in right shoulder Category: Medical Plan: Patient was given lidocaine patches as well as muscle relaxant which has helped. Refill (7) Contusion of second toe, left: Code(s): S90.122A - Contusion of left lesser toe(s) without damage to nail, initial encounter Category: Medical Plan: Will have the x-ray done. Plan History of Present Illness The patient is a 49-year-old female presenting for a follow-up visit. She has a history of chronic obstructive pulmonary disease (COPD), lumbar degenerative disc disease, type 2 diabetes mellitus, severe obstructive sleep apnea, hypertension, hypercholesterolemia, gastroesophageal reflux disease (GERD), and generalized anxiety disorder. She underwent a sleeve gastrectomy in 2020 and has a history of laparoscopic cholecystectomy and cholelithiasis. The patient reports right shoulder pain and has been evaluated by orthopedics. An X-ray revealed a large undersurface acromial osteophyte likely causing impingement and calcific tendinitis, but no fracture was noted. She has been prescribed lidocaine patches and muscle relaxants, which have provided some relief. The patient also experiences plantar fasciitis and has been seen by podiatry. An MRI showed degenerative changes and Achilles tendinitis, and she was advised to use a walking boot. The diagnosis from podiatry includes posterior tibial tendon dysfunction and arthritis of the left ankle, for which prednisone, insoles, and an AFO brace were prescribed. The patient's preventative care is up to date with a mammogram done in October 2024 and a colonoscopy in September 2021. Her last cholesterol test was in February of the previous year, and her hemoglobin A1c is well-controlled. Health Maintenance - Mammogram up to date as of October 2024 - Colonoscopy up to date as of September 2021 - Last cholesterol test in February of the previous year - Hemoglobin A1c is well-controlled Social History - The patient reports significant weight loss from 359 pounds to 239 pounds following sleeve gastrectomy. Review of Systems - Musculoskeletal: Reports right shoulder pain, plantar fasciitis, and arthritis of the left ankle. - Neurological: Reports numbness and burning sensation in the second toe. - Endocrine: Reports well-controlled blood sugar levels. Physical Exam Results - X-ray of right shoulder: Large undersurface acromial osteophyte, calcific tendinitis, no fracture. - MRI of left foot: Degenerative changes, Achilles tendinitis. - Echocardiogram: Ejection fraction 55-60%, no regional left ventricular wall motion abnormality, RV size grossly normal. Plan The patient will continue to manage her chronic conditions, including COPD, hypertension, and diabetes mellitus, with her current medication regimen. For her right shoulder pain, she will continue using lidocaine patches and muscle relaxants as needed, and follow up with orthopedics if symptoms persist. The patient is advised to continue using the prescribed insoles and AFO brace for her foot conditions, and to follow up with podiatry as needed. Preventative care measures are up to date, with a recent mammogram and colonoscopy. She will continue to monitor her cholesterol levels and maintain her current diabetes management plan. The patient is encouraged to continue her weight management efforts following her sleeve gastrectomy. Patient was informed and verbally consented to the use of an ambient scribe for clinic note documentation during this visit. Discussion Notes I discussed with the patient the management of her chronic conditions, emphasizing the importance of medication adherence for COPD, hypertension, and diabetes mellitus. We reviewed her right shoulder pain management, including the use of lidocaine patches and muscle relaxants, and the need for orthopedic follow-up if symptoms persist. I advised her on the use of insoles and AFO brace for her foot conditions and the importance of podiatry follow-up. We confirmed that her preventative care measures, including mammogram and colonoscopy, are up to date. I encouraged her to continue her weight management efforts and to monitor her cholesterol and diabetes management closely. Patient Instructions - Continue taking medications for COPD, hypertension, and diabetes as prescribed. - Use lidocaine patches and muscle relaxants for shoulder pain as needed. - Follow up with orthopedics if shoulder pain persists. - Use insoles and AFO brace for foot conditions and follow up with podiatry as needed. - Maintain current diabetes management plan and monitor blood sugar levels. - Continue weight management efforts following sleeve gastrectomy. Orders: Orders AMB Hemoglobin A1c Today Z13.9 - Encounter for screening, unspecified XR toe LT min 2V Today S90.122A - Contusion of left lesser toe(s) without damage to nail, initial encounter Medications: New tizanidine 2 mg PO TID PRN 60 tabs 0RF muscle spasticity M25.511 - Pain in right shoulder lidocaine 4% (Salonpas (lidocaine)) 1 patch topical TID PRN 60 ea 1RF pain M25.511 - Pain in right shoulder
== END 2024-12-29 16:39 | disposition home or self-care (01) ==
LOC: HO.HMCH 15:37
PROVIDERS: PCP Internal Medicine; Visit Provider Internal Medicine
DX: E11.65 Type 2 diabetes mellitus with hyperglycemia (principal); I10 Essential (primary) hypertension; Z90.3 Acquired absence of stomach [part of]; K21.9 Gastro-esophageal reflux disease without esophagitis; G47.33 Obstructive sleep apnea (adult) (pediatric); M25.511 Pain in right shoulder; S90.122A Contusion of left lesser toe(s) without damage to nail, initial encounter; Z13.9 Encounter for screening, unspecified

== ENCOUNTER → 2024-12-29 15:36 | Outpatient (BNVA) | payer OTHER, SELFPAY | PROVIDERS: PCP Internal Medicine; Visit Provider Internal Medicine | DX: E11.65 Type 2 diabetes mellitus with hyperglycemia (principal); I10 Essential (primary) hypertension; K21.9 Gastro-esophageal reflux disease without esophagitis; G47.33 Obstructive sleep apnea (adult) (pediatric); M25.511 Pain in right shoulder; J44.9 Chronic obstructive pulmonary disease, unspecified; M51.369 Other intervertebral disc degeneration, lumbar region without mention of lumbar back pain or lower extremity pain; E11.9 Type 2 diabetes mellitus without complications; E78.00 Pure hypercholesterolemia, unspecified; F41.1 Generalized anxiety disorder; S90.122A Contusion of left lesser toe(s) without damage to nail, initial encounter; E66.9 Obesity, unspecified; X58.XXXA Exposure to other specified factors, initial encounter; Y93.9 Activity, unspecified; Y92.9 Unspecified place or not applicable; Y99.9 Unspecified external cause status; Z68.41 Body mass index [BMI] 40.0-44.9, adult; Z98.84 Bariatric surgery status | CPT/HCPCS: 83036; 96127; 99212 ==

== ENCOUNTER 2024-12-30 12:44 | Outpatient (REF) | payer OTHER, SELFPAY ==
--- NOTE | ~2024-12-30 | XR_ITS ---
EXAMINATION: XR TOES 2 OR MORE VIEWS LEFT HISTORY: S90.122A - Contusion of left lesser toe(s) without damage to nail, initial... COMPARISON: Comparison is made with the prior examination of the left foot dated 08/27/2019. FINDINGS: Four views of the left 2nd toe are submitted. The bones are osteopenic. There is no fracture or dislocation. There is degenerative change of the PIP joint. The soft tissues are unremarkable. XR/XR toe LT min 2V IMPRESSION: No evidence of fracture of the left 2nd toe. Electronically signed by: Parvez Giraldo MD 12/30/2024 01:16 PM EDT
--- OUTSIDE RECORDS SUMMARY | 2024-12-30 14:47 | XMS_ITS | Encounter Summary ---
Author Organization [employer] [facility] Address [address] [place] [address] Care Team Providers Care Realtime Captioner Name Role Phone Melina Barber MD Primary Care Provider Jairo Gross MD Unavailable [phone] Mindy Ashley NP Unavailable [phone] Jordan Grey MD Unavailable [phone] Reason for Visit * Reason Onset Date Comments External Sleep Study Request 08/12/2020 hyun atment study Encounter Details Date Type Department Care Team Description 08/12/2020 Telephone Pulmonology - [place] [address] [facility] [address] [place] [address] Bhaskar Barnes MD [address] [place] [phone] External Sleep Study Request (treatment study) Social History Tobacco Use Types Packs/Day Years Used Date Smoking Tobacco: Former Cigarettes 5 Q uit: 04/29/2019 Smokeless Tobacco: Never Comments:5 cigs/day Alcohol Use Standard Drinks/Week Comments No 0 (1 standard drink = 0.6 oz pur e alcohol) Sex Assigned at Date Recorded Not on file Job Start Date Occupation Industry Not on file Not on file Not on file COVID-19 Exposure Response Date Recorded In the last month, have you been in contact with someone who was confirmed or suspected to have Coronavirus / COVID-19? No / Unsure 07/28/2020 8:44 AM EST documented as of this encounter Miscellaneous Notes * Telephone Encounter - Lyudmila Tamir - 08/17/2020 3:45 PM EST appt- September 14 at 7:45 pm [facility] Covid Testing September 11 at 10 am [address] [facility] Letter mailed * Telephone Encounter - Lyudmila Garnett - 08/17/2020 8:40 AM EST [facility] auth # [id number] 08/12/20- 11/09/20 [id number] Order and notes faxed to [facility] Awaiting appt. * Telephone Encounter - Lyudmila Garnett - 08/12/2020 11:07 AM EST Pending with ins documented in this encounter Plan of Treatment Not on file documented as of this encounter Visit Diagnoses Not on filedocumented in this encounter Care Teams Realtime Captioner Relationship Specialty Start Date End Date Melina Barber MD PCP - General 02/06/08 Jairo Lerma MD [address] [place] [address] Specialist Cardiovascular Disease 05/09/21 4 Mindy Ashley NP [address] [place] [address] Cardiology 11/01/21 09/19/23 Jordan Grey MD [address] [place] [address] Specialist Cardiovascular Disease 09/20/23 documented as of this encounter
== END 2024-12-30 12:45 | disposition home or self-care (01) ==
LOC: HO.XRAY 12:44
PROVIDERS: PCP Internal Medicine; Visit Provider Internal Medicine
DX: S90.122A Contusion of left lesser toe(s) without damage to nail, initial encounter (principal)
CPT/HCPCS: 73660

== ENCOUNTER → 2024-12-30 12:49 | Outpatient (BNV) | payer OTHER, SELFPAY | PROVIDERS: PCP Internal Medicine; Visit Provider Radiology Diagnostic Radiology | DX: M85.872 Other specified disorders of bone density and structure, left ankle and foot (principal) | CPT/HCPCS: 73660 ==

== ENCOUNTER 2025-01-07 08:10 | Outpatient (AMB) | payer OTHER, SELFPAY ==
--- OUTSIDE RECORDS SUMMARY | 2025-01-07 08:13 | XMS_ITS | Encounter Summary ---
Author Organization [employer] [facility] Address [address] [place] [address] Care Team Providers Care Director Payer Name Role Phone Melina Barber MD Primary Care Provider Jairo Gross MD Unavailable [phone] Mindy Ashley NP Unavailable [phone] Jordan Grey MD Unavailable [phone] Reason for Visit * Reason Onset Date Comments External Sleep Study Request 08/12/2020 hyun atment study Encounter Details Date Type Department Care Team Description 08/12/2020 Telephone Pulmonology - [place] [address] [facility] [address] [place] [address] Bhaskar Barnes MD [address] [place] [phone] External Sleep Study Request (treatment study) Social [...] EST appt- September 14 at 7:45 pm [facility] Covid Testing September 11 at [address] [facility] Letter mailed * Telephone Encounter - Lyudmila Garnett - 08/17/2020 8:40 AM EST [facility] auth # [id number] 08/12/20- 11/09/20 [id number] Order and notes faxed to [facility] Awaiting appt. * Telephone Encounter - Lyudmila Garnett - 08/12/2020 11:07 AM EST Pending with ins documented in this encounter Plan of Treatment Not on file documented as of this encounter Visit Diagnoses Not on filedocumented in this encounter Care Teams Director Payer Relationship Specialty Start Date End Date Melina Barber MD PCP - General 02/06/08 Jairo Lerma MD [address] [place] [address] Specialist Cardiovascular Disease 05/09/21 4 Mindy Ashley NP [address] [place] [address] Cardiology 11/01/21 09/19/23 Jordan Grey MD [address] [place] [address] Specialist Cardiovascular Disease 09/20/23 documented as of this encounter
--- OUTSIDE RECORDS SUMMARY | 2025-01-07 08:14 | XMS_ITS | Clinical Summary ---
Author Organization Patient Business Ser [facility] Address [address] [place] [address] [address] Team Prov[address] Care Road Boss Name Role Phone Melina Barber MD Primary Care Provider [phone] Allergies Active Allergy Reactions Criticality Noted Date Comments [place] Inhibitors Swelling 03/26/2017 Hydrocodone-Acetaminophen Swelling 03/26/2017 Medications simethicone (MYLICON) 125 mg chewable tablet TAKE 1 TABLET BY MOUTH EVERY 6 HOURS NEEDED FOR FLATULENCE FOR UP TO 30 DAYS. 11/27/19 24 Active zinc glycinate 30 mg capsule Take 1 Capsule by mouth daily. 01/03/20 24 Active pantoprazole (PROTONIX) 40 mg EC tablet Take 1 tablet (40 mg total) by mouth 1 (one) time each day. Active spironolactone (ALDACTONE) 25 mg tablet Take 1 tablet (25 mg total) by mouth 1 (one) time each day. 05/29/20 23 Active pen needle, diabetic (Lite Touch Insulin Pen [place]) 29 gauge x 1/2 needle 1 Units by Does not apply route once a week for 8 doses. 10/06/19 23 Active mometasone-for moterol (Dulera) 100-5 mcg/actuation inhaler INHALE 1 PUFF EVERY 12 HOURS,RINSE MOUTH WITH WATER & SPIT OUT AFTER EACH DOSE TO PREVENT INFECTION 06/26/20 22 Active mometasone-for moterol (DULERA 100) 100-5 mcg/actuation inhaler Inhale into the lungs. Active albuterol HFA (ProAir HFA) 90 mcg/actuation inhaler 11/29/19 21 Active traMADoL (ULTRAM) 50 mg tablet as needed. 12/02/19 Active freestyle (TRUEplus Lancets) 28 gauge lancets 12/24/19 Active atorvastatin (LIPITOR) 10 mg tablet 12/07/19 Active blood sugar diagnostic (FreeStyle Lite Strips) test strip 12/24/19 Active albuterol HFA (PROVENTIL HFA;VENTOLIN HFA) 108 (90 Base) MCG/ACT inhaler Inhale into the lungs. Active acetaminophen (TYLENOL) 500 mg tablet TAKE 1 TABLET BY MOUTH FOUR TIMES DAILY FOR PAIN 09/30/19 24 Active ibuprofen (ADVIL,MOTRIN) 600 mg tablet TAKE 1 TABLET BY MOUTH THREE TIMES DAILY WITH MEALS FOR PAIN, MAX 2400MG/DAY 09/30/19 24 Active Vitamins B Complex tablet Take 1 tablet by mouth 1 (one) time each day. 08/20/19 24 Active cyanocobalamin , vitamin B-12, 1,000 mcg tablet, sublingual PLACE 1 TABLET UNDER THE TONGUE DAILY FOR 90 DAYS. *NOT CVRD 90 tablet 90 08/18/19 25 Active furosemide (LASIX) 20 mg tablet Take 1 tablet Mon, Wed and Sat 30 each 09/03/19 25 Active carvediloL (COREG) 12.5 mg tablet Take 1 tablet (12.5 mg total) by mouth 2 (two) times a day with meals. 09/03/19 026 Active ferrous sulfate 324 mg (65 mg elemental iron) EC tablet TAKE 1 TABLET (324 MG TOTAL) BY MOUTH 1 (ONE) TIME EACH DAY. 90 tablet 12/24/19 25 025 Active tiZANidine (ZANAFLEX) 2 mg tablet Take 1 tablet (2 mg total) by mouth every 6 (six) hours if needed for muscle spasms for up to 5 days. 20 each 12/24/19 25 Active loperamide (IMODIUM) 2 mg capsule TAKE 1 CAPSULE BY MOUTH 4 TIMES DAILY NEEDED FOR DIARRHEA FOR UP TO 10 DAYS. 40 capsule 01/02/20 25 Active loperamide (IMODIUM) 2 mg capsule TAKE 1 CAPSULE BY MOUTH 4 TIMES DAILY NEEDED FOR DIARRHEA FOR UP TO 10 DAYS. 40 capsule 09/16/19 25 025 Discontinued ferrous sulfate 324 mg (65 mg elemental iron) EC tablet TAKE 1 TABLET (324 MG TOTAL) BY MOUTH 1 (ONE) TIME EACH DAY. 90 tablet 09/22/19 25 025 Discontinued lidocaine 4 % patch Apply 1 patch topically 1 (one) time each day for 5 days. 5 each 12/24/19 25 025 Active Problems Problem Noted Date Diagnosed Date Bariatric surgery status 05/21/2024 Class 3 severe obesity due t o excess calories with serious comorbidity and body mass index (BMI) of 40.0 to 44.9 in adult ([facility] V24, [facility] V28) 04/28/2024 Asthma 04/28/2024 Hyperlipidemia 04/28/2024 Overview (04/28/2024): Last Assessment & Plan: Last lipid panel from July 2022. Total cholesterol 174, HDL 57, LDL 71, triglycerides 233. Continue statin therapy. Discussed low-fat diet and daily low impact exercise to improve triglycerides. Assessment & Plan (09/03/2024 10:40 AM EST): Do not think she will need a statin. Her previous cath showed no coronary artery disease and previous lipid profile was quite good. I will repeat lipid profile and then make decision whether to discontinue start Vitamin D deficiency 04/28/2024 Trigger finger of left thumb 09/24/2023 Bilateral carpal tunnel syndrome 09/11/2022 Shortness of breath on exertion 05/17/2022 Overview (04/28/2024): Last Assessment & Plan: Do think her shortness of breath on exertion is probably related to her weight. However echocardiogram did demonstrate that the estimated PA pressure that was increased. She does have sleep apnea but she states she is using a CPAP. On exam today she was found to have bilateral leg swelling although its not clear this may be related to the amlodipine. She is trying to lose weight we will see how her breathing does with this also. She is also to cut down on the amlodipine to every other day to see if this helps the leg swelling. I do think we will need to check a BNP and will mail her a slip for 1. Will need to repeat her echocardiogram 1 year from the last one. Edema 11/01/2021 Overview (04/28/2024): Last Assessment & Plan: She does appear to have some lower extremity edema and to be retaining fluid. I will going update an echocardiogram although I do not believe this is secondary to cardiomyopathy or heart failure. This may be secondary to venous insufficiency. I will start with an echocardiogram and go from there. She does not have any symptoms at this time. Continue medications as above. Assessment & Plan (09/03/2024 10:40 AM EST): Is unclear whether the lower extremity edema cell from venous disease or there is elevated central pressure. Her previous echocardiogram had a very poor quality. I will repeat echocardiogram to reassess the PA pressure and right atrial pressure. I will add low-dose furosemide, 20 mg 3 times a week and continue spironolactone at current dose. Will repeat BMP in 2 weeks. Hypokalemia 11/01/2021 Overview (04/28/2024): Last Assessment & Plan: She had laboratories ordered by her surgeons office this morning her potassium level was 2.8. She was referred to the emergency room. She was given IV and oral potassium with no significant improvement. She was given 40 mEq of potassium to take. She has not yet repeated the level. I have asked her to take 40 mEq of potassium twice daily. She will get her labs checked tomorrow. I am starting spironolactone 25 mg daily and holding the chlorthalidone. She will also recheck her potassium level next Saturday so we can ensure that her potassium level is stable on the current dose of spironolactone and potassium. Her potassium wasting may be secondary to her continued weight loss after gastric bypass and cholecystectomy. NSTEMI (non-ST elevated myoc ardial infarction) (CMS/[facility] V24, CMS/[facility] V28) 08/30/2020 Overview (04/28/2024): 03[facility]2020 [facility] admit Last Assessment & Plan: She had a type II demand [facility] likely secondary to elevated blood pressures. Her cardiac catheterization revealed normal coronary anatomy. There is no role or indication for aspirin therapy. Her blood pressure is stable today. Continue current doses of amlodipine, carvedilol, and statin therapy. She will continue low-salt diet and daily low-impact exercise. Assessment & Plan (09/03/2024 10:40 AM EST): Orders: ECG 12 lead Hypoxemia 08/30/2020 Overview (04/28/2024): Persistent, during sleep Obstructive sleep apnea 08/30/2020 COPD (chronic obstructive pu lmonary disease) (CMS/[facility] V24, CMS/HCC V28) 04/07/2020 DJD (degenerative joint disease) of knee 020 Glaucoma 04/07/2020 Hypertension 04/07/2020 Overview (04/28/2024): Last Assessment & Plan: 124/72 in office today, well-controlled. Continue current regimen. Assessment & Plan (09/03/2024 10:40 AM EST): Has improved since gastric bypass. I will reduce carvedilol to 12.5 mg at twice a day Smoking 12/10/2018 Encounters Date Type Department Care Team Description 12/23/2024 1:04 PM EDT - 12/23/2024 4:20 PM EDT Emergency [facility] Emergency [address] [place] [phone] Red Hoang MD Calcific tendinitis (Primary Dx) Discharge Disposition: Home or Self Care 12/17/2024 2:15 PM EDT Office Visit Orthopedic [facility] [address] [facility] [address] [place] [phone] Jordan Pang, DPM Posterior tibial tendon dysfunction (PTTD) of left lower extremity (Primary Dx); Arthritis of left ankle 11/18/2024 4:00 PM EDT Office Visit Bariatric Surgery [facility] 175 [facility] [address] [place] [phone] Desirae Knutson PA Class 3 severe obesity due to excess calories with serious comorbidity and body mass index (BMI) of 40.0 to 44.9 in adult ([facility] V24, [facility] V28) (Primary Dx); Bariatric surgery status 11/16/2024 2:15 PM EDT Office Visit Orthopedic [place] [address] [address] [facility] [address] [place] [phone] Jordan Pang DPM Posterior tibial tendon dysfunction (PTTD) of left lower extremity (Primary Dx); Arthritis of left ankle 11/12[facility]20[facility] 175 [facility] [address] [place] [phone] Bhaskar Barnes MD Fitting for DME 11/11/2024 2:30 PM EDT Ancillary Procedure [facility] [address] [place] [phone] Chronic diastolic congestive heart failure (CMS/HCC V24, CMS/HCC V28) 10/19/2024 3:30 PM EDT [facility] 175 [facility] [address] [place] [phone] Bhaskar Barnes MD Obstructive sleep apnea (Primary Dx); Mild persistent asthma, unspecified whether complicated 10/19/2024 1:11 PM EDT - 10/19/2024 11:59 PM EDT Hospital Encounter [facility] [address] [place] [phone] Encounter for well woman exam with routine gynecological exam; Screening breast examination Discharge Disposition: Home or Self Care 10/13/2024 3:45 PM EDT Consult Orthopedic Surgery [facility] [address] [facility] [address] [place] [phone] Jordan Pang DPM Posterior tibial tendon dysfunction (PTTD) of left lower extremity (Primary Dx); Arthritis of left ankle 10/09/2024 4:17 PM EDT - 10/09/2024 7:39 PM EDT Emergency [facility] Emergency [address] [place] [phone] Left foot pain (Primary Dx) Discharge Disposition: Home or Self Care from Last 3 Months Immunizations Name Administration Dates Next Due Hepatitis B (Dlhskxt-W-Fmivs , Recombivax HB-Adult) 19yo and older 03/28/2016,10/24/2015,08/12/2015 Influenza Quadravalent, MDCK , 0.5ml, preservative free (Flucelvax) 6mo and older 05/17/2022 Influenza Quadrivalent, 0.5m l, preservative free (Fluarix; FluLaval; Fluzone) ages 6mo and older (Afluria) 3yo and older 05/08/2023 Influenza Quadrivalent, with preservative (Fluzone; Afluria) 6mo and older 04/09/2018,04/19/2016 Influenza trivalent, MDCK, 0 .5mL, preservative free (Flucelvax) 6mo and older 04/27/2024 Influenza trivalent, with pr eservative (Fluzone; Afluria) 6mo and older 03/23/2020 MMR, measles mumps and rubel la Live (Priorix; M-M-R II) 12mo and older 01/14/2024,08/12/2015 Pfizer SARS-CoV-2 COVID-19, mRNA, LNP-S, preservative free 07/11/2022,10/25/2020,10/03/2020,07/11 Pneumococcal conjugate 20 va lent (Prevnar 20, PCV 20) 2mo and older 04/27/2024 Pneumococcal polysaccharide 23 valent (Pneumovax 23) 2yo and older 03/10/2020 Tdap Tetanus diptheria acell ular pertussis (Boostrix; Adacel) 7yo and older 07/26/2015 Zoster recombinant (Shingrix ) 19yo and older 08/28/2023,05/08/2023 Surgical History Surgery Date Site/Laterality Comments OTHER SURGICAL HISTORY 1993 Right PROCEDURE: ---- OTHER ----; COMMENT: right forearm surgery BELT ABDOMINOPLASTY 2013 PROCEDURE: HISTORICAL TUMMY TUCK; COMMENT: [facility] BREAST REDUCTION 2016 PROCEDURE: [place] BREAST REDUCTION; COMMENT: [facility] KNEE SURGERY 2002 Left PROCEDURE: HISTORICAL KNEE SURGERY; COMMENT: [place] OTHER SURGICAL HISTORY 11/2008 PROCEDURE: ---- OTHER ----; COMMENT: lap band HAND SURGERY Right PROCEDURE: HISTORICAL HAND SURGERY; COMMENT: Long Trigger Finger Release, Dr Lord CHOLECYSTECTOMY BARIATRIC SURGERY 06/07/2023 - 07/07/2023 Medical History Medical History Date Comments Anemia DX:Anemia Asthma DX:Asthma Glaucoma DX:Glaucoma Vitamin D deficiency DX:Vitamin D deficiency Hypertension 04/07/2020 DX:Hypertension COPD (chronic obstructive pu lmonary disease) ([facility] V24, [facility] V28) 04/07/2020 DX:COPD (chronic o bstructive pulmonary disease) ([facility]) DJD (degenerative joint dise ase) of knee 04/07/2020 DX:DJD (degenerative joint d isease) of knee Class 3 severe obesity due t o excess calories with serious comorbidity and body mass index (BMI) of 60.0 to 69.9 in adult ([facility] V24, [facility] V28) 05/22/2018 DX:Class 3 severe obesity due to excess calories with serious comorbidity and body mass index (BMI) of 60.0 to 69.9 in adult ([facility]) NSTEMI (non-ST elevated myoc ardial infarction) ([facility] V24, [facility] V28) 08/30/2020 DX:NSTEMI (non- ST elevated myocardial infarction) ([facility]); COMMENT: 03[facility]2020 [facility] admit Hypoxemia 08/30/2020 DX:Hypoxemia; CO MMENT: Persistent, during sleep Hyperlipidemia DX:Hyperlipidemi a Esophageal reflux DX:Esophageal reflux Hypokalemia DX:Hypokalemia Dependent edema DX:Dependent jameson ma Family History Medical History Relation Name Comments Diabetes Aunt 1 HTN, arthritis, [place] breast Breast cancer Aunt 2 Breast cancer Aunt 3 Diabetes Father Serjio Olivas HTN, stroke, CVD, Lung disease Hypertension Father Serjio Olivas Diabetes Maternal Grandfather Chidi Anderson HTN Heart attack Maternal Grandfather Chidi Anderson Diabetes Maternal Grandmother Becca Anderson HTN , stroke, [place] Other: unknown heart problems Maternal Grandmother Becca Anderson Diabetes Mother Serjio olivas HTN, arthrit is Hypertension Mother Serjio olivas Diabetes Paternal Grandfather Chidi anderson HTN Diabetes Paternal Grandmother Becca Anderson HTN No Known Problems Sister 1 No Known Problems Sister 2 Colon cancer Neg Hx Ovarian cancer Neg Hx Prostate cancer Neg Hx Relation Name Status Comments Aunt 1 Aunt 2 Aunt 3 Father Serjio Olivas Half-Sister x4 Alive Maternal Grandfather Chidi Anderson Maternal Grandmother Becca Anderson Mother Serjio olivas Alive Paternal Grandfather Chidi anderson Paternal Grandmother Becca Anderson Sister 1 Alive Sister 2 Alive Social History Tobacco Use Types Packs/Day Years Used Date Smoking Tobacco: Former Cigarettes Q uit: 04/29/2019 Smokeless Tobacco: Never Alcohol Use Standard Drinks/Week Comments Not Currently 0 (1 standard drink = 0.6 oz pur e alcohol) Housing Instability Answer Date Recorde d Are you worried that in the next 2 months you may not have stable housing? Unable to respond 10/05/2024 Food Access & Nutrition Answer Date Rec orded Do you have access to a vari ety of food including fruits and vegetables? Unable to respond 10/05/2024 Access to Healthcare Answer Date Record ed Within the last 3 months, ho w many times did you visit the emergency department for your medical care? 0 10/05/2024 Health Literacy Answer Date Recorded How often do you need to hav e someone help you when you read instructions, pamphlets, or other written material from your doctor or pharmacy? Unable to respond 10/05/2024 Caregiver: How often do you need to have someone help you when you read instructions, pamphlets, or other written material from your doctor or pharmacy? Not on file 025 Financial Risk Answer Date Recorded How hard is it for you to pa y for the very basics like food, housing, medical care, and air conditioning / heating? Unable to respond 10/05/2024 Transportation Answer Date Recorded Has the lack of transportati on kept you from meetings, work, or from getting things needed for daily living? No Has the lack of transportati on kept you from medical appointments or from getting medications? No 10/05/2024 Social Isolation Answer Date Recorded How often do you feel lonely or isolated from those around you? Unable to respond 10/05/2024 Food Risk Answer Date Recorded Within the past 12 months we worried whether our food would run out before we got money to buy more. Unable to respond 025 Within the past 12 months th e food we bought just didn't last and we didn't have money to get more. Unable to respond 09/07 Dependent Care Answer Date Recorded Do you need help finding or paying for care for your loved ones. For example, early childhood coordinator or elderly care for an older adult? No 10/05/2024 Education Answer Date Recorded Do you think completing more education or training, like finishing a GED, going to college, or learning a trade, would be helpful for you? Unable to respond 10/05/2024 Employment and Income Answer Date Recor ded During the last four weeks, have you been actively looking for work? Unable to respond 10/05/2024 Living Situation Answer Date Recorded What is your living situation? 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 on file Not on file Not on file Obstetrics History Para Term AB IAB SAB Ectopic Multiple Livin g Live Births 0 0 0 0 0 0 0 0 0 0 0 Last Filed Vital Signs Vital Sign Reading Time Taken Comments Blood Pressure 105/79 12/23/2024 12:09 PM EDT Pulse 56 12/23/2024 12:09 PM EDT Temperature 36.8 C (98.2 F) 12/23/2024 12:09 PM EDT Respiratory Rate 18 12/23/2024 12:09 PM EDT Oxygen Saturation 95% 12/23/2024 12:09 PM EDT Inhaled Oxygen Concentration - - Weight 105 kg (232 lb) 12/23/2024 12:09 PM EDT Height 160 cm (5' 3 ) 12/23/2024 12:09 PM EDT Body Mass Index 41.1 12/23/2024 12:09 PM EDT Plan of Treatment Upcoming Encounters Date Type Department Care Team (Late st Contact Info) Description 02/11/2025 8:45 AM EDT Office Visit Orthopedic Surgery - [place] [address] [phone] Jordan Pang, DPM [address] [address] 03/12/2025 2:45 PM EDT Office Visit Pulmonolgy - [place] 175 [facility] [address] [place] [phone] Bhaskar Barnes MD 175 [facility] 200 [place] [address] 05/19/2025 4:00 PM EST Office Visit Bariatric Surgery - [place] 175 [facility] [address] [place] [phone] Desirae Knutson PA 175 [facility] [address] [place] [address] Health Maintenance Due Date Last Done Comments COVID-19 Vaccine ( season) 2024 09/10/2023, 07/11/2022, 05/17/2022, Additional history exists Influenza Vaccine (#1) 2025 , 05/08/2023, 05/17/2022, Additional history exists DTaP,Tdap,and Td Vaccines (2 - Td or Tdap) 07/26/2025 07/26/2015 Depression Screening 10/05/2025 10/05/2024 Social Influencers of Health Screening 10/05/2025 10/05/2024 Hypertension/CHF/CAD Annual BMP Blood Test 11/27/2025 11/27/2024, 05/21/2024, 12/25/2023, Additional history exists Colorectal Cancer Screening: Colonoscopy 09/15/2026 09/15/2021 Breast Cancer Screening 10/19/2026 10/20/19, 08/01/2023, 08/24/2021 Cervical Cancer Screening: HPV 10/05/2029 10/05/2024, 03/23/2014 Cholesterol Screening (Lipid Panel) 11/27/2029 11/27/2024, 07/11/2022 Hepatitis B Vaccines Completed 03/28/2016, 10/24/2015, 08/12/2015 HIV Screening Completed 05/13/2017 Hepatitis C Screening Completed 05/13/2017 Zoster Vaccines Completed 08/28/2023, 05/08/2023 MMR Vaccines Aged Out 01/14/2024, 08/12/2015 No lo nger eligible based on patient's age to complete this topic Pneumococcal Vaccine: 50+ Years Completed 04/27/2024, 03/10/2020 Pneumococcal Vaccine: Pediatrics (0 to 5 Years) and At-Risk Patients (6 to 64 Years) Completed 04/27/2024, 03/10/2020 HIB Vaccines Aged Out No longer eligi ble based on patient's age to complete this topic HPV Vaccines Aged Out No longer eligi ble based on patient's age to complete this topic Hepatitis A Vaccines Aged Out No long er eligible based on patient's age to complete this topic IPV Vaccines Aged Out No longer eligi ble based on patient's age to complete this topic Meningococcal ACWY Vaccine Aged Out N o longer eligible based on patient's age to complete this topic Meningococcal B Vaccine Aged Out No l onger eligible based on patient's age to complete this topic RSV Immunization Patients Under 20 months Aged Out No longer eligible based on patient's age to complete this topic Varicella Vaccines Aged Out No longer eligible based on patient's age to complete this topic Procedures Procedure Name Priority Date/Time Associated Diagnosis Comments XR SHOULDER 2+ VIEWS RIGHT STAT 12/23/2024 3:12 PM EDT ALBUMIN Routine 11/27/2024 2:23 PM EDT Class 3 severe obesity due to excess calories with serious comorbidity and body mass index (BMI) of 40.0 to 44.9 in adult (CMS/HCC V24, CMS/[facility] V28) Bariatric surgery status IRON AND TIBC Routine 11/27/2024 2:23 PM EDT Class 3 severe obesity due to excess calories with serious comorbidity and body mass index (BMI) of 40.0 to 44.9 in adult (CMS/HCC V24, CMS/HCC V28) Bariatric surgery status ZINC Routine 11/27/2024 2:23 PM EDT Class 3 severe obesity due to excess calories with serious comorbidity and body mass index (BMI) of 40.0 to 44.9 in adult (CMS/HCC V24, CMS/HCC V28) Bariatric surgery status LIPID PANEL WITH REFLEX TO DIRECT LDL Routine 11/27/2024 2:23 PM EDT Chronic diastolic congestive heart failure (CMS/HCC V24, CMS/HCC V28) BASIC METABOLIC PANEL Routine 11/27/2024 2:23 PM EDT Chronic diastolic congestive heart failure (CMS/HCC V24, CMS/HCC V28) TRANSTHORACIC ECHOCARDIOGRAM (TTE) COMPLETE Routine 11/11/2024 3:21 PM EDT Chronic diastolic congestive heart failure (CMS/HCC V24, CMS/HCC V28) MG MAMMO DIGITAL SCREENING W BRIAN BILAT Routine 10/19/2024 2:02 PM EDT Encounter for well woman exam with routine gynecological exam Screening breast examination XR FOOT 3+ VIEWS LEFT STAT 10/09/2024 6:53 PM EDT XR ANKLE 3+ VIEWS LEFT STAT 6:53 PM EDT HPV WITH REFLEX GENOTYPE Routine 10/05/2024 1:31 PM EDT Encounter for well woman exam with routine gynecological exam Screening for cervical cancer COLONOSCOPY Routine 09/15/2021 HEPATITIS C SCREENING Routine 05/13/2017 HIV SCREENING Routine 05/13/2017 from Last 3 Months or Most Recently Relevant to Health Maintenance Results * XR Shoulder 2+ Views Right (12/23/2024 3:12 PM EDT) Anatomical Region Laterality Modality Upper Extremities, Shoulder Right Radi ographic Imaging 12/23/2024 3:33 PM EDT Impressions 12/23/2024 3:34 PM EDT FINDINGS/IMPRESSION: Large undersurface acromial osteophyte which likely predisposes to impingement. No acute fracture. Calcific tendinitis. -------- FINAL REPORT -------- Dictated By: Cherelle Chase Dictated Date: 12/23/2024 15:33 ET Assigned Physician: Cherelle Chase Reviewed and Electronically Signed By: Cherelle Chase Signed Date: 12/23/2024 15:34 ET Workstation ID: [id number] Transcribed By: Self Edit Transcribed Date: 12/23/2024 15:33 ET Narrative 12/23/2024 3:34 PM EDT XR SHOULDER 2+ VIEWS RIGHT INDICATION: pain TECHNIQUE: XR SHOULDER 2+ VIEWS RIGHT COMPARISON: No priors available. Procedure Note Cherelle Chase MD - 12/23/2024 XR SHOULDER 2+ VIEWS RIGHT INDICATION: pain TECHNIQUE: XR SHOULDER 2+ VIEWS RIGHT COMPARISON: No priors available. IMPRESSION: FINDINGS/IMPRESSION: Large undersurface acromial osteophyte which likelypredisposes to impingement. No acute fracture. Calcific tendinitis. -------- FINAL REPORT -------- Dictated By: Cherelle Chase Dictated Date: 12/23/2024 15:33 ET Assigned Physician: Cherelle Chase Reviewed and Electronically Signed By: Cherelle Chase Signed Date: 12/23/2024 15:34 ET Workstation ID: [id number] Transcribed By: Self Edit Transcribed Date: 12/23/2024 15:33 ET Red Hoang MD IMG XR PROCEDURES Final Result * (ABNORMAL) Lipid panel with reflex to direct LDL (11/27/2024 2:23 PM EDT) Cholesterol 173 0 - 200 mg/dL LAB CHEMISTRY METHOD 11/27/2024 6:44 PM EDT [facility] Triglycerides 206(H) 0 - 150 mg/dL LAB CHEMISTRY METHOD 11/27/2024 6:44 PM EDT [facility] HDL 55 >=40 mg/dL LAB CHEMISTRY METHOD 11/27/2024 6:44 PM EDT [facility] LDL Calculated 77 0 - 100 mg/dL LAB CHEMISTRY METHOD 11/27/2024 6:44 PM EDT [facility] VLDL Cholesterol Jimmy 41.2 mg/dL LAB CHEMISTRY METHOD 11/27/2024 6:44 PM EDT [facility] Non HDL Chol. (LDL+VLDL) 118 <145 mg/dL LAB CHEMISTRY METHOD 11/27/2024 6:44 PM EDT [facility] Chol/HDL Ratio 3.1 0.0 - 4.4 LAB CHEMISTRY METHOD 11/27/2024 6:44 PM EDT [facility] Blood Venous blood specimen / Unknown Venipuncture / Unknown 11/27/2024 2:23 PM EDT 11/27/2024 2:23 PM EDT Jr Galindo MD LAB BLOOD ORDERABLES Final Resul t Performing Organization Address City/[facility]/ZIP Co de Phone Number [facility] [address] [place] [address], [place] [phone] * Iron and TIBC (11/27/2024 2:23 PM EDT) Iron 76 40 - 150 mcg/dL LAB CHEMISTRY METHOD 11/27/2024 6:43 PM EDT [facility] TIBC 407 250 - 450 mcg/dL LAB CHEMISTRY METHOD 11/27/2024 6:43 PM EDT [facility] Iron Saturation 19 15 - 50 % LAB CHEMISTRY METHOD 11/27/2024 6:43 PM EDT [facility] Blood Venous blood specimen / Unknown Venipuncture / Unknown 11/27/2024 2:23 PM EDT 11/27/2024 2:23 PM EDT us Desirae TONG LAB BLOOD ORDERABLES Final R esult [facility] [address] [place] [address], [place] [phone] * Zinc (11/27/2024 2:23 PM EDT) Zinc 62 60 - 130 ug/dL 12/01/2024 12:03 PM EDT [facility] Comment: Elevated results may be due to sample collected in a non-certified trace element-free tube. This test was developed and the performance characteristics determined by [facility]. It has not been cleared or approved by the FDA. The laboratory is regulated under CLIA as qualified to perform high-complexity testing. This test is used for patient testing purposes. It should not be regarded as investigational or for research. Test performed at [facility], [address] , [place] [address] Carmen Lund MD, PhD - Replenishment Analyst Blood Venous blood specimen / Unknown Venipuncture / Unknown 11/27/2024 2:23 PM EDT 11/27/2024 2:23 PM EDT Desirae TONG LAB BLOOD ORDERABLES Final R esult Performing Organization Address City/[facility]/ZIP Co de Phone Number [facility] [address] [place] [address] * Albumin (11/27/2024 2:23 PM EDT) Albumin 3.2 3.2 - 5.0 g/dL LAB CHEMISTRY METHOD 11/27/2024 6:42 PM EDT [facility] Blood Venous blood specimen / Unknown Venipuncture / Unknown 11/27/2024 2:23 PM EDT 11/27/2024 2:23 PM EDT Desirae TONG LAB BLOOD ORDERABLES Final R esult [facility] [address] [place] [address], [place] [phone] * Basic metabolic panel (11/27/2024 2:23 PM EDT) Sodium 143 133 - 145 mmol/L LAB CHEMISTRY METHOD 11/27/2024 6:42 PM EDT [facility] Potassium 4.5 3.5 - 5.5 mmol/L LAB CHEMISTRY METHOD 11/27/2024 6:42 PM [facility] Chloride 105 96 - 110 mmol/L LAB CHEMISTRY METHOD 11/27/2024 6:42 PM [facility] CO2 32 21 - 32 mmol/L LAB CHEMISTRY METHOD 11/27/2024 6:42 PM [facility] Anion Gap 6 3 - 11 LAB CHEMISTRY METHOD 11/27/2024 6:42 PM [facility] Glucose 84 70 - 100 mg/dL LAB CHEMISTRY METHOD 11/27/2024 6:42 PM [facility] BUN 13 5 - 25 mg/dL LAB CHEMISTRY METHOD 11/27/2024 6:42 PM [facility] Creatinine 0.72 0.50 - 1.10 mg/dL LAB CHEMISTRY METHOD 11/27/2024 6:42 PM [facility] eGFR 101 >=60 mL/min/1. 73m2 LAB CHEMISTRY METHOD 11/27/2024 6:42 PM [facility] Comment:Calculation based on the Chronic Kidney Disease Epidemiology Collaboration (CKD-EPI) equation refit without adjustment for race. BUN/Creatinine Ratio 18.1 LAB CHEMISTRY METHOD 11/27/2024 6:42 PM [facility] Calcium 9.0 8.5 - 10.5 mg/dL LAB CHEMISTRY METHOD 11/27/2024 6:42 PM [facility] Blood Venous blood specimen / Unknown Venipuncture / Unknown 11/27/2024 2:23 PM EDT 11/27/2024 2:23 PM EDT us Jr Galindo MD LAB BLOOD ORDERABLES Final Resul t [facility] [address] [place] [address], * (ABNORMAL) TRANSTHORACIC ECHOCARDIOGRAM (TTE) COMPLETE (11/11/2024 3:21 PM EDT) Left Atrium Minor Faison 5.5 cm CV PACS Left Atrium Major Faison 5.6 cm CV PACS LA Area Sys (A2C) 21 cm2 CV PACS LA Area Sys (A4C) 18 cm2 CV PACS LA Volume (BP) 55 mL CV PACS RA Area 16.0 cm2 CV PACS RA 2D Volume 40 mL CV PACS Aortic Sinus Valsalva 2.7 cm CV PACS Ascending Aorta 2.7 cm CV PACS IVSD 0.8 0.6 - 0.9 cm CV PACS LVIDD 5.4(A) 3.8 - 5.2 cm CV PACS LVIDS 2.9 2.2 - 3.5 cm CV PACS LVOT Diameter 2.0 cm CV PACS LVPWD 0.8 0.6 - 0.9 cm CV PACS MV E' Tissue Velocity Lateral 11 cm/s CV PACS MV E' Tissue Velocity Septal 9 cm/s CV PACS LVOT Area 3.1 cm2 CV PACS MV Deceleration [place] 5.1 m/s2 CV PACS E Wave Deceleration Time 218 119 - 242 ms CV PACS MV PHT 63 ms CV PACS MV Peak A Abilio 0.70 m/s CV PACS MV Peak E Abilio 1.10 m/s CV PACS MV Area PHT 3.4 cm2 CV PACS RV S' 14 cm/s CV PACS TAPSE 36 mm CV PACS TR Peak Velocity 2.50 m/s CV PACS TR Peak Gradient 25 mmHg CV PACS E/E' Ratio Septal 12 CV PACS E/E' Ratio Averaged 11 CV PACS Relative Wall Thickness ratio 0.30 0.22 - 0.42 CV PACS FS 46 % CV PACS LV Mass 2D 155(A) 66 - 150 g CV PACS Ascending Aorta Index 1.30 cm/m2 CV PACS RA 2D Volume Index 19 15 - 27 mL/m2 CV PACS LVIDD Index 2.61 cm/m2 CV PACS LVIDS Index 1.40 cm/m2 CV PACS E/A Ratio 1.6 0.8 - 2.0 CV PACS E/E' Ratio Lateral 10 CV PACS LA Volume Index (BP) 27 mL/m2 CV PACS LV Mass Index 2D 75 44 - 88 g/m2 CV PACS BSA 2.18 m2 CV PACS RV Free Wall Peak S' 14 cm/s CV PACS RA Major Faison 5.2 cm CV PACS RA Major Faison Index 2.5 2.2 - 2.8 cm/m2 CV PACS Right Ventricular Peak Systolic Pressure 33 mmHg CV PACS Est. RA Pressure 8 mmHg CV PACS Anatomical Region Laterality Modality Ultrasound Narrative 11/26/2024 1:55 PM EDT Technically difficult study. Limited views were obtained. Ultrasound enhancing agent (Definity contrast) was used for better delineation of the endocardial borders. Left ventricle cavity is mildly dilated. Left ventricular systolic function is in the normal range with an ejection fraction of 55-60%. No regional LV wall motion abnormalities noted. Right Ventricle: Right ventricle was not well visualized. On limited views, the RV size appears to be grossly normal. Systolic function is normal. Mitral Valve: There is mild regurgitation. Left Ventricle Left ventricle cavity is mildly dilated. Wall thickness is normal. Systolic function is normal with an ejection fraction of 55-60%. There are no regional LV wall motion abnormalities. There is no diastolic dysfunction. Right Ventricle Right ventricle was not well visualized. On limited views, the RV size appears to be grossly normal. Systolic function is normal. Left Atrium Left atrium cavity size is normal. There appears to be lipomatous hypertrophy of the interatrial septum. Right Atrium Right atrium cavity is normal. There is a prominent Eustachian valve. IVC/SVC Inferior vena cava is dilated. RA pressures is estimated to be 8 mmHg (IVC diameter >21 mm and decreases >50% during inspiration). Mitral Valve The leaflets are mildly thickened. There is mild annular calcification. There is mild regurgitation. There is no evidence of mitral valve stenosis. Tricuspid Valve The leaflets exhibit normal excursion. There is trace regurgitation. There is no evidence of tricuspid valve stenosis. The right ventricular systolic pressure is normal. Estimated RA pressure is 8 mmHg. The RVSP is estimated at 33 mmHg. Aortic Valve Number of aortic valve cusps cannot be determined. There is no regurgitation or stenosis. Pulmonic Valve The pulmonic valve was not well visualized. There is no regurgitation or stenosis. Ascending Aorta The aorta was not well visualized. On limited images, the ascending aorta appears to be normal in size. Pericardium There is no pericardial effusion. Study Details Overall the study quality was technically difficult. Definity contrast was given to enhance imaging. Study was difficult due to: poor endocardial visualization. us Jr Galindo MD CV ECHO PROCEDURES Final Result * MG Mammo Digital Screening w Brian bilat (10/19/2024 2:02 PM EDT) Anatomical Region Laterality Modality Breast Bilateral Mammography 10/19/2024 5:51 PM EDT Impressions 10/19/2024 5:57 PM EDT No mammographic evidence of malignancy. No suspicious interval change. A negative mammogram in the presence of a clinically suspicious palpable abnormality does not preclude the possibility of malignancy or alter the indications for biopsy. ASSESSMENT: BI-RADS 2: BENIGN RECOMMENDATION(S): 1: Routine screening mammogram BILATERAL in 1 year. Mammography location: [facility] [address], [address] -------- FINAL REPORT -------- Dictated By: Josiah Wild Dictated Date: 10/19/2024 17:51 ET Assigned Physician: Josiah Wild Reviewed and Electronically Signed By: Josiah Wild Signed Date: 10/19/2024 17:57 ET Workstation ID: [id number] Transcribed By: Self Edit Transcribed Date: 10/19/2024 17:51 ET Narrative 10/19/2024 5:57 PM EDT EXAM: SCREENING MAMMOGRAPHY, BILATERAL HISTORY: SCREENING. Aunt with history of breast cancer. Breast reduction surgery bilaterally 2016 COMPARISON: 08/01/23, 08/24/21 TECHNIQUE: Synthesized CC and MLO projections of each breast. Tomosynthesis of each breast in the CC and MLO projections. ADDITIONAL IMAGING: Craniocaudal view of the right breast exaggerated toward the axilla using Tomosynthesis. Computer-aided detection was employed with the [employer] AI 3-D. TISSUE DENSITY: The breasts are almost entirely fatty. (BI-RADS Category A) FINDINGS: RIGHT BREAST: Stable pattern consistent with prior reduction surgery. No additional suspicious right breast findings LEFT BREAST: Stable pattern consistent with prior reduction surgery. No additional suspicious left breast findings Procedure Note Josiah Wild MD - 10/19/2024 EXAM: SCREENING MAMMOGRAPHY, BILATERAL HISTORY: SCREENING. Aunt with history of breast cancer. Breast reduction surgery bilaterally 2015 COMPARISON: 08/01/23, 08/24/21 TECHNIQUE: Synthesized CC and MLO projections of each breast.Tomosynthesis of each breast in the CC and MLO projections. ADDITIONAL IMAGING: Craniocaudal view of the right breast exaggeratedtoward the axilla using Tomosynthesis. Computer-aided detection was employed with the [employer] 3-D. TISSUE DENSITY: The breasts are almost entirely fatty. (BI-RADS CategoryA) FINDINGS: RIGHT BREAST: Stable pattern consistent with prior reduction surgery. No additionalsuspicious right breast findings LEFT BREAST: Stable pattern consistent with prior reduction surgery. No additionalsuspicious left breast findings IMPRESSION: No mammographic evidence of malignancy. No suspicious interval change. A negative mammogram in the presence of a clinically suspicious palpableabnormality does not preclude the possibility of malignancy or alter theindications for biopsy. ASSESSMENT: BI-RADS 2: BENIGN RECOMMENDATION(S): 1: Routine screening mammogram BILATERAL in 1 year. Mamm[facility] location: [facility] at [address], [address] -------- FINAL REPORT -------- Dictated By: Josiah Wild Dictated Date: 10/19/2024 17:51 ET Assigned Physician: Josiah Wild Reviewed and Electronically Signed By: Josiah Wild Signed Date: 10/19/2024 17:57 ET Workstation ID: [id number] Transcribed By: Self Edit Transcribed Date: 10/19/2024 17:51 ET us Jaida Machuca CNM IMG BI PROCEDURES Final Resul t * XR Foot 3+ Views Left (10/09/2024 6:53 PM EDT) Anatomical Region Laterality Modality Lower Extremities, Foot Left [facility] 10/10/2024 8:47 AM EDT Impressions 10/10/2024 8:51 AM EDT No acute fracture or subluxation. There is some degenerative change and there is extensive soft tissue swelling with soft tissue calcifications. This could be related to stasis. -------- FINAL REPORT -------- Dictated By: Josiah Wild Dictated Date: 10/10/2024 08:47 ET Assigned Physician: Josiah Wild Reviewed and Electronically Signed By: Josiah Wild Signed Date: 10/10/2024 08:51 ET Workstation ID: [id number] Transcribed By: Self Edit Transcribed Date: 10/10/2024 08:47 ET Narrative 10/10/2024 8:51 AM EDT EXAMINATION: LEFT ANKLE LEFT FOOT CLINICAL INFORMATION: Foot/ankle pain. No known injury. COMPARISON: None. TECHNIQUE: 3 views left ankle 3 views left foot FINDINGS: Left ankle: No disruption of the ankle mortise. There are marginal osteophytes and proliferative changes throughout the region. There is extensive soft tissue swelling and soft tissue calcification which could be related to stasis. Left foot: No acute fracture or subluxation. No suspicious focal lesion or aggressive periosteal new bone. No abnormal soft tissue gas or opaque foreign body. There is diffuse soft tissue swelling. There is calcaneal spurring. There are proliferative changes throughout the foot. Procedure Note Josiah Wild MD - 10/10/2024 EXAMINATION: LEFT ANKLE LEFT FOOT CLINICAL INFORMATION: Foot/ankle pain. No known injury. COMPARISON: None. TECHNIQUE: 3 views left ankle 3 views left foot FINDINGS: Left ankle: No disruption of the ankle mortise. There are marginal osteophytes andproliferative changes throughout the region. There is extensive soft tissue swelling and soft tissue calcificationwhich could be related to stasis. Left foot: No acute fracture or subluxation. No suspicious focal lesion or aggressiveperiosteal new bone. No abnormal soft tissue gas or opaque foreign body.There is diffuse soft tissue swelling. There is calcaneal spurring. Thereare proliferative changes throughout the foot. IMPRESSION: No acute fracture or subluxation. There is some degenerative change andthere is extensive soft tissue swelling with soft tissue calcifications.This could be related to stasis. -------- FINAL REPORT -------- Dictated By: Josiah Wild Dictated Date: 10/10/2024 08:47 ET Assigned Physician: Josiah Wild Reviewed and Electronically Signed By: Josiah Wild Signed Date: 10/10/2024 08:51 ET Workstation ID: [id number] Transcribed By: Self Edit Transcribed Date: 10/10/2024 08:47 ET Kamala TONG IMG XR PROCEDURES Final Result * XR Ankle 3+ Views Left (10/09/2024 6:53 PM EDT) Anatomical Region Laterality Modality Lower Extremities, Ankle Left Radiogr [facility] 10/10/2024 8:47 AM EDT Impressions 10/10/2024 8:51 AM EDT No acute fracture or subluxation. There is some degenerative change and there is extensive soft tissue swelling with soft tissue calcifications. This could be related to stasis. -------- FINAL REPORT -------- Dictated By: Josiah Wild Dictated Date: 10/10/2024 08:47 ET Assigned Physician: Josiah Wild Reviewed and Electronically Signed By: Josiah Wild Signed Date: 10/10/2024 08:51 ET Workstation ID: [id number] Transcribed By: Self Edit Transcribed Date: 10/10/2024 08:47 ET Narrative 10/10/2024 8:51 AM EDT EXAMINATION: LEFT ANKLE LEFT FOOT CLINICAL INFORMATION: Foot/ankle pain. No known injury. COMPARISON: None. TECHNIQUE: 3 views left ankle 3 views left foot FINDINGS: Left ankle: No disruption of the ankle mortise. There are marginal osteophytes and proliferative changes throughout the region. There is extensive soft tissue swelling and soft tissue calcification which could be related to stasis. Left foot: No acute fracture or subluxation. No suspicious focal lesion or aggressive periosteal new bone. No abnormal soft tissue gas or opaque foreign body. There is diffuse soft tissue swelling. There is calcaneal spurring. There are proliferative changes throughout the foot. Procedure Note Josiah Wild MD - 10/10/2024 EXAMINATION: LEFT ANKLE LEFT FOOT CLINICAL INFORMATION: Foot/ankle pain. No known injury. COMPARISON: None. TECHNIQUE: 3 views left ankle 3 views left foot FINDINGS: Left ankle: No disruption of the ankle mortise. There are marginal osteophytes andproliferative changes throughout the region. There is extensive soft tissue swelling and soft tissue calcificationwhich could be related to stasis. Left foot: No acute fracture or subluxation. No suspicious focal lesion or aggressiveperiosteal new bone. No abnormal soft tissue gas or opaque foreign body.There is diffuse soft tissue swelling. There is calcaneal spurring. Thereare proliferative changes throughout the foot. IMPRESSION: No acute fracture or subluxation. There is some degenerative change andthere is extensive soft tissue swelling with soft tissue calcifications.This could be related to stasis. -------- FINAL REPORT -------- Dictated By: Josiah Wild Dictated Date: 10/10/2024 08:47 ET Assigned Physician: Josiah Wild Reviewed and Electronically Signed By: Josiah Wild Signed Date: 10/10/2024 08:51 ET Workstation ID: [id number] Transcribed By: Self Edit Transcribed Date: 10/10/2024 08:47 ET Kamala TONG IMG XR PROCEDURES Final Result * HPV with reflex genotype (10/05/2024 1:31 PM EDT) [facility] HPV Negative Negative LAB MICROBIOLOGY METHOD 10/06/2024 3:08 PM EDT [facility] Brushing/Spatula Cervix uteri structure / Unknown 10/05/2024 1:31 PM EDT 10/06/2024 8:10 AM EDT Jaida Machuca CNM LAB MOLECULAR DIAGNOSTICS ORD ERABLES Final Result [facility]) [facility] [address] [place] [address], [place] [phone] * Colonoscopy (09/15/2021) Pathologist [facility] Colonoscopy Normal, Abstracted Anatomical Region Laterality Modality Other Historical Provider HEALTH MAINTENANCE Final Result * HIV Screening (05/13/2017) HIV Screening Abstracted Historical Provider HEALTH MAINTENANCE Final Result * Hepatitis C Screening (05/13/2017) Hepatitis C Screening Abstracted Historical Provider HEALTH MAINTENANCE Final Result from Last 3 Months or Most Recently Relevant to Health Maintenance Insurance [facility] [employer] Care Teams 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
[2025-01-07 08:22] VITALS: BMI 42.3
--- NOTE | 2025-01-07 08:22 | A.OFFVIS_ITS ---
Vital Signs 01/07/25 08:22 Height 5 ft 3 in Weight 239 lb BMI 42.3 Intake Visit Reasons: OV- Left knee pain follow up, last Euflexxa 10/2023, left knee pain Intake Note: Yessica is a 49 year old female who presents with complaints of progressively worsening left knee pain. She describes her pain as sharp and severe in nature. She has had cortisone injections in the past which gave her no relief. She has also had Durolane injections which gave her very good relief. She had a series of Euflexxa injections last year which gave her minimal relief. She wishes to hold off on surgery if at all possible. She has tried Tylenol and anti- inflammatory medicines which gave her minimal relief. She has failed the last 3 months of conservative treatment which has included physical therapy exercises, a home exercise program, Tylenol and anti-inflammatory medicines. At this point her left knee pain is interfering with her activities of daily living and her ability to sleep well through the night. Allergies JASBIR Inhibitors (JASBIR INHIBITORS) Allergy (Severe, Verified 01/07/25 08:39) ANGIOEDEMA acetaminophen (From VICODIN) Allergy (Severe, Verified 01/07/25 08:39) ANGIOEDEMA hydrocodone (From VICODIN) Allergy (Severe, Verified 01/07/25 08:39) ANGIOEDEMA amlodipine Adverse Reaction (Intermediate, Verified 01/07/25 08:39) leg swelling Medication List - Last Reconciled 01/07/25 by Farhan Napier MD albuterol sulfate 2.5 mg (3 mL) inhalation Q4-6H PRN albuterol sulfate 90 mcg/actuation 2 puffs inhalation Q6H PRN atorvastatin 10 mg PO BEDTIME blood sugar diagnostic (FreeStyle Lite Strips) CHECK BLOOD SUGAR TWICE A DAY carvedilol 12.5 mg PO BID [HeavyDUTYshower bench As directed] [iVAPS EPAP 8 & TVA 8 FL 14 PS 6-20 HT. 64 inches with 2L in NREM with heated humidified EPAP in range 6-9 TVA 7.7 -9.4] lancets (FreeStyle Lancets) 28 gauge miscellaneous BID 90 days lidocaine 4% (Salonpas (lidocaine)) 1 patch topical DAILY lidocaine 4% (Salonpas (lidocaine)) 1 patch topical TID PRN mometasone-formoterol 100-5 mcg/actuation (Dulera) 1 puff inhalation Q12H [oxygen As directed 2 L NC] pantoprazole 40 mg PO DAILY [Shower chair As directed] spironolactone 25 mg PO DAILY tizanidine 2 mg PO TID PRN tizanidine mg PO tramadol 50 mg PO Q8H PRN PFSH Medical History Coronary artery disease NSTEMI (non-ST elevated myocardial infarction) Rhinitis Acute sinusitis Leg abrasion Glaucoma Obesity Peripheral vascular disease Knee osteoarthritis GERD (gastroesophageal reflux disease) Hypercholesterolemia Insomnia B12 deficiency Hypertension Severe obstructive sleep apnea Non-STEMI (non-ST elevated myocardial infarction) Type 2 diabetes mellitus with hyperglycemia COPD (chronic obstructive pulmonary disease) DDD (degenerative disc disease), lumbar Surgical History History of gastric bypass Status post breast reduction Status post panniculectomy H/O left knee surgery History of surgery on arm LAP-BAND surgery status Family History Father Lung disease Diabetes Hypertension CVD (cardiovascular disease) Mother Diabetes Hypertension Maternal Grandmother Myocardial infarction Social History Housing: House Patient Tobacco Use Status: Former Tobacco user Tobacco use type: Cigarette e-Cigarette/Vaping Use: Never Used Second Hand Smoke Exposure: Yes service: No Current occupational status: unemployed and disabled Current occupation: Right hand dominate Cognitive needs: No Hearing needs: No Vision needs: Yes Physical Exam Vital Signs: BMI result Body Mass Index 42.3 Const Other: Well-nourished well-developed very friendly female awake alert and oriented x3 in no acute distress Extrem Other: Left knee examination shows a minimal effusion, palpable crepitus with range of motion, pain with range of motion, no instability Results Reviewed Results Reviewed: X-rays of the patient's left knee show joint space narrowing, subchondral sclerosis, no acute bony abnormalities Assessment & Plan Assessment & Plan (1) Osteoarthritis of left knee: Code(s): M17.12 - Unilateral primary osteoarthritis, left knee Category: Medical Plan Ms. Benitez presents with progressively worsening left knee pain due to osteoarthritis. I had a lengthy discussion with the patient regarding the treatment options. She wishes to hold off on surgery for as long possible. I agree with this plan. I will see if her insurance company will cover a Durolane viscosupplementation injection. She did not get good relief from the Euflexxa injections. I will see her back once the injection is available. I did give her a prescription for a Medrol Dosepak to help with her symptoms in the meantime. Feel free to call me at any time should questions regarding her orthopedic management arise. I spent 22 minutes in reviewing the patient's records and imaging studies, seeing the patient and documenting in the medical record. Medications: New methylprednisolone (Medrol (Vinod)) PO PER PKG DIR 21 ea 0RF Coding Level of Care Code Est Pt Level 3 (30123) Complex EM visit Add On G2211 Diagnoses Osteoarthritis of left knee M17.12
== END 2025-01-07 08:42 | disposition home or self-care (01) ==
LOC: HO.HOS 08:10
PROVIDERS: PCP Internal Medicine; Visit Provider Orthopaedic Surgery
DX: M17.12 Unilateral primary osteoarthritis, left knee (principal)
CPT/HCPCS: 99213; G2211

== ENCOUNTER → 2025-01-07 08:10 | Outpatient (BNVA) | payer OTHER, SELFPAY | PROVIDERS: PCP Internal Medicine; Visit Provider Orthopaedic Surgery | DX: M25.562 Pain in left knee (principal); M17.12 Unilateral primary osteoarthritis, left knee | CPT/HCPCS: 99212 ==

== ENCOUNTER 2025-02-03 10:03 | Outpatient (AMB) | payer OTHER, SELFPAY ==
--- NOTE | 2025-02-03 10:09 | A.OFFVIS_ITS ---
Vital Signs 02/03/25 10:13 Height 5 ft 3 in Weight 240 lb BMI 42.5 Intake Visit Reasons: Inj- Left knee Durolane inj Intake Note: Yessica is a 49 year old female who presents with complaints of left knee pain. She describes her pain as sharp in nature. She has had cortisone injections in the past which gave her minimal relief. She has also had a Durolane viscosuppl ementation injection which gave her good relief. She wishes to hold off on surgery if at all possible. She has failed the last 3 months of conservative treatment. Allergies JASBIR Inhibitors (JASBIR INHIBITORS) Allergy (Severe, Verified 02/03/25 10:11) ANGIOEDEMA acetaminophen (From VICODIN) Allergy (Severe, Verified 02/03/25 10:11) ANGIOEDEMA hydrocodone (From VICODIN) Allergy (Severe, Verified 02/03/25 10:11) ANGIOEDEMA amlodipine Adverse Reaction (Intermediate, Verified 02/03/25 10:11) leg swelling Medication List - Last Reconciled 02/03/25 by Farhan Napier MD albuterol sulfate 2.5 mg (3 mL) inhalation Q4-6H PRN albuterol sulfate 90 mcg/actuation 2 puffs inhalation Q6H PRN atorvastatin 10 mg PO BEDTIME blood sugar diagnostic (FreeStyle Lite Strips) CHECK BLOOD SUGAR TWICE A DAY carvedilol 12.5 mg PO BID [HeavyDUTYshower bench As directed] [iVAPS EPAP 8 & TVA 8 FL 14 PS 6-20 HT. 64 inches with 2L in NREM with heated humidified EPAP in range 6-9 TVA 7.7 -9.4] lancets (FreeStyle Lancets) 28 gauge miscellaneous BID 90 days lidocaine 4% (Salonpas (lidocaine)) 1 patch topical DAILY lidocaine 4% (Salonpas (lidocaine)) 1 patch topical TID PRN loperamide 2 mg PO QID PRN methylprednisolone (Medrol (Vinod)) PO PER PKG DIR mometasone-formoterol 100-5 mcg/actuation (Dulera) 1 puff inhalation Q12H [oxygen As directed 2 L NC] pantoprazole 40 mg PO DAILY [Shower chair As directed] spironolactone 25 mg PO DAILY tramadol 50 mg PO Q8H PRN PFSH Medical History Coronary artery disease NSTEMI (non-ST elevated myocardial infarction) Rhinitis Acute sinusitis Leg abrasion Glaucoma Obesity Peripheral vascular disease Knee osteoarthritis GERD (gastroesophageal reflux disease) Hypercholesterolemia Insomnia B12 deficiency Hypertension Severe obstructive sleep apnea Non-STEMI (non-ST elevated myocardial infarction) Type 2 diabetes mellitus with hyperglycemia COPD (chronic obstructive pulmonary disease) DDD (degenerative disc disease), lumbar Surgical History History of gastric bypass Status post breast reduction Status post panniculectomy H/O left knee surgery History of surgery on arm LAP-BAND surgery status Family History Father Lung disease Diabetes Hypertension CVD (cardiovascular disease) Mother Diabetes Hypertension Maternal Grandmother Myocardial infarction Social History Housing: House Patient Tobacco Use Status: Former Tobacco user Tobacco use type: Cigarette e-Cigarette/Vaping Use: Never Used Second Hand Smoke Exposure: Yes service: No Current occupational status: unemployed and disabled Current occupation: Right hand dominate Cognitive needs: No Hearing needs: No Vision needs: Yes Physical Exam Vital Signs: BMI result Body Mass Index 42.5 Const Other: Well-nourished well-developed very friendly female awake alert and oriented x3 in no acute distress Extrem Other: Left knee examination shows a minimal effusion, palpable crepitus with range of motion, pain with range of motion, no instability Office Procedures AMB Joint Injection/Aspiration Joint Injection/Aspiration Primary Site: left knee Prep: site was prepped using aseptic technique Injected: 60 mg of (Durolane viscosupplementation) and 1% plain lidocaine Procedure: The patient tolerated the procedure well Coding 81554 - Large joint Procedure code (CPT) selection complete Results Reviewed Results Reviewed: X-rays of the patient's left knee show joint space narrowing, subchondral sclerosis, no acute bony abnormalities Assessment & Plan Assessment & Plan (1) Osteoarthritis of left knee: Code(s): M17.12 - Unilateral primary osteoarthritis, left knee Category: Medical Plan Ms. Benitez presents with left knee pain due to osteoarthritis. The risks and benefits of a left knee Durolane viscosupplementation injection were discussed at length with the patient. The patient wished to proceed. She tolerated the injection well. She will continue with her home exercise program. She will contact me prior to her follow-up appointment in 3 months should any questions or concerns arise. Feel free to call me at any time should questions regarding her orthopedic management arise. I spent 21 minutes in reviewing the patient's records and imaging studies, seeing the patient and documenting in the medical record. Orders: Orders AMB Joint Injection/Aspiration Today M17.12 - Unilateral primary osteoarthritis, left knee Coding Level of Care Code Est Pt Level 3 (38308) Complex EM visit Add On G2211 Diagnoses Osteoarthritis of left knee M17.12 CPT Codes Coding - 26781 Large joint: 56019 - Large joint ([id number])
[2025-02-03 10:13] VITALS: BMI 42.5
--- OUTSIDE RECORDS SUMMARY | 2025-02-03 10:52 | XMS_ITS | Clinical Summary ---
Author Organization Patient Business Ser [facility] Address [address] [place] [address] Care Team Providers Care Residential Assistant Name Role Phone Melina Barber MD Primary Care Provider [phone] Allergies Active Allergy Reactions Criticality Noted Date Comments [place] Inhibitors Swelling 03/26/2017 Hydrocodone-Acetaminophen Swelling 03/26/2017 Medications simethicone (MYLICON) 125 mg chewable tablet TAKE 1 TABLET BY MOUTH EVERY 6 HOURS NEEDED FOR FLATULENCE FOR UP TO 30 DAYS. 4 Active zinc glycinate 30 mg capsule Take 1 Capsule by mouth daily. 4 Active pantoprazole (PROTONIX) 40 mg EC tablet Take 1 tablet (40 mg total) by mouth 1 (one) time each day. Active spironolactone (ALDACTONE) 25 mg tablet Take 1 tablet (25 mg total) by mouth 1 (one) time each day. 3 Active pen needle, diabetic (Lite Touch Insulin Pen [place]) 29 gauge x 1/2 needle 1 Units by Does not apply route once a week for 8 doses. 3 Active mometasone-form oterol (Dulera) 100-5 mcg/actuation inhaler INHALE 1 PUFF EVERY 12 HOURS,RINSE MOUTH WITH WATER & SPIT OUT AFTER EACH DOSE TO PREVENT INFECTION 2 Active mometasone-form oterol (DULERA 100) 100-5 mcg/actuation inhaler Inhale into the lungs. Active albuterol HFA (ProAir HFA) 90 mcg/actuation inhaler 1 Active traMADoL (ULTRAM) 50 mg tablet as needed. 1 Active freestyle (TRUEplus Lancets) 28 gauge lancets 1 Active atorvastatin (LIPITOR) 10 mg tablet 1 Active blood sugar diagnostic (FreeStyle Lite Strips) test strip 1 Active albuterol HFA (PROVENTIL HFA;VENTOLIN HFA) 108 (90 Base) MCG/ACT inhaler Inhale into the lungs. Active acetaminophen (TYLENOL) 500 mg tablet TAKE 1 TABLET BY MOUTH FOUR TIMES DAILY FOR PAIN 4 Active ibuprofen (ADVIL,MOTRIN) 600 mg tablet TAKE 1 TABLET BY MOUTH THREE TIMES DAILY WITH MEALS FOR PAIN, MAX 2400MG/DAY 4 Active Vitamins B Complex tablet Take 1 tablet by mouth 1 (one) time each day. 4 Active cyanocobalamin, vitamin B-12, 1,000 mcg tablet, sublingual PLACE 1 TABLET UNDER THE TONGUE DAILY FOR 90 DAYS. *NOT CVRD 90 tablet 90 5 Active furosemide (LASIX) 20 mg tablet Take 1 tablet Mon, Wed and Fri 30 each 11 5 Active carvediloL (COREG) 12.5 mg tablet Take 1 tablet (12.5 mg total) by mouth 2 (two) times a day with meals. 5 09/03/19 26 Active ferrous sulfate 324 mg (65 mg elemental iron) EC tablet TAKE 1 TABLET (324 MG TOTAL) BY MOUTH 1 (ONE) TIME EACH DAY. 90 tablet 5 03/23/20 25 Active tiZANidine (ZANAFLEX) 2 mg tablet Take 1 tablet (2 mg total) by mouth every 6 (six) hours if needed for muscle spasms for up to 5 days. 20 each 5 Active loperamide (IMODIUM) 2 mg capsule TAKE 1 CAPSULE BY MOUTH 4 TIMES DAILY NEEDED FOR DIARRHEA FOR UP TO 10 DAYS. 40 capsule 5 Active Active Problems Problem Noted Date Diagnosed Date Bariatric surgery status 05/21/2024 Class 3 severe obesity due t o excess calories with serious comorbidity and body mass index (BMI) of 40.0 to 44.9 in adult (CMS/HCC V24, CMS/[facility] V28) 04/28/2024 Asthma 04/28/2024 Hyperlipidemia 04/28/2024 Overview [...] cholecystectomy. 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 Her [...] 08/30/2020 COPD (chronic obstructive pu lmonary disease) ([facility] V24, [facility] V28) 04/07/2020 DJD (degenerative joint disease) of knee 10/01/2 020 Glaucoma 04/07/2020 Hypertension 04/07/2020 Overview (04/28/2024): Last Assessment & Plan: 124/72 in office today, well-controlled. Continue current regimen. Assessment & Plan (09/03/2024 10:40 AM EST): Has improved since gastric bypass. I will reduce carvedilol to 12.5 mg at twice a day Smoking 12/10/2018 Encounters Date Type Department Care Team Description 02/02/2025 11:00 AM EDT Consult Orthopedic Surgery [place] [address] [phone] Nael Laird PA Calcific tendinitis of right shoulder (Primary Dx) 12/23/2024 1:04 PM EDT - 12/23/2024 4:20 PM EDT Emergency [facility] [address] [place] [phone] Red Hoang MD Calcific tendinitis (Primary Dx) Discharge Disposition: Home or Self Care 12/17/2024 2:15 PM EDT Office Visit Orthopedic Surgery [place] [address] [phone] Jordan Pang DPM Posterior tibial tendon dysfunction (PTTD) of left lower extremity (Primary Dx); Arthritis of left ankle 11/18/2024 4:00 PM EDT Office Visit Bariatric Surgery [address] [place] [phone] Desirae Knutson PA Class 3 severe obesity due to excess calories with serious comorbidity and body mass index (BMI) of 40.0 to 44.9 in adult (CMS/HCC V24, CMS/HCC V28) (Primary Dx); Bariatric surgery status 11/16/2024 2:15 PM EDT Office Visit Orthopedic [facility] [address] [phone] Jordan Pang DPM Posterior tibial tendon dysfunction (PTTD) of left lower extremity (Primary Dx); Arthritis of left ankle 11/12/2024 Telephone Pulmonolgy - [place] [address] [place] [address] Bhaskar Barnes MD Fitting for DME 11/11/2024 2:30 PM EDT Ancillary Procedure [facility] [address] [facility] Karthik [address] [place] [address] Chronic diastolic congestive heart failure (CMS/HCC V24, CMS/HCC V28) from Last 3 Months Immunizations Name Administration Dates Next Due Hepatitis B (Xksucvp-X-Neylp , Recombivax HB-Adult) 19yo and older 03/28/2016,10/24/2015,08/12/2015 [...] ABDOMINOPLASTY 2013 PROCEDURE: HISTORICAL TUMMY TUCK; COMMENT: [facility] BREAST REDUCTION 2015 PROCEDURE: [place] BREAST REDUCTION; COMMENT: [facility] KNEE SURGERY 2002 Left PROCEDURE: HISTORICAL KNEE SURGERY; COMMENT: [place] OTHER SURGICAL HISTORY 11/2008 PROCEDURE: ---- OTHER ----; COMMENT: lap band HAND SURGERY Right PROCEDURE: HISTORICAL HAND SURGERY; COMMENT: Long Trigger Finger Release, Dr Lord CHOLECYSTECTOMY BARIATRIC SURGERY 06/07/2023 - 07/07/2023 Medical History Medical History Date Comments Anemia DX:Anemia Asthma DX:Asthma Glaucoma DX:Glaucoma Vitamin D deficiency DX:Vitamin D deficiency Hypertension 04/07/2020 DX:Hypertension COPD (chronic obstructive pu lmonary disease) ([facility] V24, [facility] V28) 04/07/2020 DX:COPD (chronic o bstructive pulmonary disease) ([facility]) DJD (degenerative joint dise ase) of knee 04/07/2020 DX:DJD (degenerative joint d isease) of knee Class 3 severe obesity due t o excess calories with serious comorbidity and body mass index (BMI) of 60.0 to 69.9 in adult ([facility] V24, [facility] V28) 05/22/2018 DX:Class 3 severe obesity due to excess calories with serious comorbidity and body mass index (BMI) of 60.0 to 69.9 in adult ([facility]) NSTEMI (non-ST elevated myoc ardial infarction) ([facility] V24, [facility] V28) 08/30/2020 DX:NSTEMI (non- ST elevated myocardial infarction) ([facility]); COMMENT: 03/2020 [facility] admit Hypoxemia 08/30/2020 DX:Hypoxemia; CO MMENT: Persistent, during sleep Hyperlipidemia DX:Hyperlipidemi a Esophageal reflux DX:Esophageal reflux Hypokalemia DX:Hypokalemia Dependent edema DX:Dependent jameson hawk Family History Medical History Relation Name Comments Diabetes Aunt 1 HTN, arthritis, Ca breast Breast cancer Aunt 2 Breast cancer Aunt 3 Diabetes Father Serjio Olivas HTN, stroke, CVD, Lung disease Hypertension Father Serjio Olivas Diabetes Maternal Grandfather Chidi Anderson HTN Heart attack Maternal Grandfather Chidi Anderson Diabetes Maternal Grandmother Becca Anderson HTN , stroke, CA Other: unknown heart problems Maternal Grandmother Becca [...] care for your loved ones. For example, child caregiver or elderly care for an older adult? 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 250 [place] [phone] Jordan Pang DPM [address] [facility] [address] [place] [address] 03/12/2025 2:45 PM EDT Office Visit Pulmonolgy - [place] [address] [facility] [address] [place] [phone] Bhaskar Barnes MD 175 [facility] [address] [place] [address] 05/19/2025 4:00 PM EST Office Visit Bariatric Surgery - [place] [address] [facility] 120 [place] [phone] Desirae Knutson PA 175 [facility] [address] [place] [address] Health Maintenance Due Date Last Done Comments COVID-19 Vaccine ( season) 2024 09/10/2023, 07/11/2022, 05/17/2022, Additional history exists Influenza Vaccine (#1) 2025 , 05/08/2023, 05/17/2022, Additional history exists DTaP,Tdap,and Td Vaccines (2 - Td or Tdap) 07/26/2025 07/26/2015 Social Influencers of Health Screening 10/05/2025 10/05/2024 [...] Pneumococcal Vaccine: 50+ Years Completed 04/27/2024, 03/10/2020 Depression Screening Completed 10/05/2024 HIB Vaccines Aged Out No longer eligi [...] Procedure Name Priority Date/Time Associated Diagnosis Comments POLYSOMNOGRAPHY Routine 01/26/2025 4:26 PM EDT XR SHOULDER 2+ VIEWS RIGHT STAT 12/23/2024 3:12 PM EDT ALBUMIN Routine 11/27/2024 2:23 PM EDT Class 3 severe obesity due to excess calories with serious comorbidity and body mass index (BMI) of 40.0 to 44.9 in adult (CMS/HCC V24, CMS/[facility] V28) Bariatric surgery status IRON AND TIBC [...] with routine gynecological exam Screening breast examination HPV WITH REFLEX GENOTYPE Routine 10/05/2024 1:31 PM EDT Encounter for well woman exam with routine gynecological exam Screening for cervical cancer COLONOSCOPY Routine 09/15/2021 HEPATITIS C SCREENING Routine 05/13/2017 HIV SCREENING Routine 05/13/2017 from Last 3 Months or Most Recently Relevant to Health Maintenance Results * Polysomnography (01/26/2025 4:26 PM EDT) us Historical Provider [facility]ENTER ORDERABLES F inal Result * XR Shoulder 2+ Views Right (12/23/2024 [...] Signed Date: 12/23/2024 15:34 ET Workstation ID: [id number] Transcribed By: Self Edit Transcribed Date: 12/23/2024 [...] Signed Date: 12/23/2024 15:34 ET Workstation ID: [id number] Transcribed By: Self Edit Transcribed Date: 12/23/2024 15:33 ET Red Hoang MD IMG XR PROCEDURES Final Result * (ABNORMAL) Lipid panel with reflex to direct LDL (11/27/2024 2:23 PM EDT) Cholesterol 173 0 - 200 mg/dL LAB CHEMISTRY METHOD 11/27/2024 6:44 PM EDT [facility] Triglycerides 206(H) 0 - 150 mg/dL LAB CHEMISTRY METHOD 11/27/2024 6:44 PM EDT [facility] HDL 55 >=40 mg/dL LAB CHEMISTRY METHOD 11/27/2024 6:44 PM EDT [facility] LDL Calculated 77 0 - 100 mg/dL LAB CHEMISTRY METHOD 11/27/2024 6:44 PM EDT [facility] VLDL Cholesterol Jimmy 41.2 mg/dL LAB CHEMISTRY METHOD 11/27/2024 6:44 PM EDT [facility] Non HDL Chol. (LDL+VLDL) 118 <145 mg/dL LAB CHEMISTRY METHOD 11/27/2024 6:44 PM EDT [facility] Chol/HDL Ratio 3.1 0.0 - 4.4 LAB CHEMISTRY METHOD 11/27/2024 6:44 PM EDT [facility] Blood Venous blood specimen / Unknown Venipuncture / Unknown 11/27/2024 2:23 PM EDT 11/27/2024 2:23 PM EDT us Jr Galinod MD LAB BLOOD ORDERABLES Final Resul t [facility] [address] [place] [address], * Iron and TIBC (11/27/2024 2:23 PM EDT) Iron 76 40 - 150 mcg/dL LAB CHEMISTRY METHOD 11/27/2024 6:43 PM EDT [facility] TIBC 407 250 - 450 mcg/dL LAB CHEMISTRY METHOD 11/27/2024 6:43 PM EDT [facility] Iron Saturation 19 15 - 50 % LAB CHEMISTRY METHOD 11/27/2024 6:43 PM EDT [facility] Blood Venous blood specimen / Unknown Venipuncture / Unknown 11/27/2024 2:23 PM EDT 11/27/2024 2:23 PM EDT Desirae TONG LAB BLOOD ORDERABLES Final R esult [facility] [address] [place] [address], [place] [phone] * Zinc (11/27/2024 2:23 PM EDT) Zinc 62 60 - 130 ug/dL 12/01/2024 12:03 PM EDT [facility] Comment: Elevated results may be due to sample collected in a non-certified trace element-free tube. This test was developed and the performance characteristics determined by [facility]. It has not been cleared or approved by the FDA. The laboratory is regulated under CLIA as qualified to perform high-complexity testing. This test is used for patient testing purposes. It should not be regarded as investigational or for research. Test performed at [facility], [address] , [place] [address] Carmen Lund MD, PhD - Scaler Blood Venous blood specimen / Unknown Venipuncture / Unknown 11/27/2024 2:23 PM EDT 11/27/2024 2:23 PM EDT Desirae TONG LAB BLOOD ORDERABLES Final R esult [facility] [address] [place] [address] * Albumin (11/27/2024 2:23 PM EDT) Albumin 3.2 3.2 - 5.0 g/dL LAB CHEMISTRY METHOD 11/27/2024 6:42 PM EDT [facility] Blood Venous blood specimen / Unknown Venipuncture / Unknown 11/27/2024 2:23 PM EDT 11/27/2024 2:23 PM EDT us Desirae TONG LAB BLOOD ORDERABLES Final R esult [facility] [address] [place] [address], [place] [phone] * Basic metabolic panel (11/27/2024 2:23 PM EDT) Sodium 143 133 - 145 mmol/L LAB CHEMISTRY METHOD 11/27/2024 6:42 PM EDT [facility] Potassium 4.5 3.5 - 5.5 mmol/L [...] mg/dL LAB CHEMISTRY METHOD 11/27/2024 6:42 PM EDT [facility] Blood Venous blood specimen / Unknown Venipuncture / Unknown 11/27/2024 2:23 PM EDT 11/27/2024 2:23 PM EDT us Jr Galindo MD LAB BLOOD ORDERABLES Final Resul t [facility] [address] [place] [address], [place] [phone] * (ABNORMAL) TRANSTHORACIC ECHOCARDIOGRAM (TTE) COMPLETE (11/11/2024 3:21 PM EDT) Left Atrium Minor [place] 5.5 cm CV PACS Left Atrium Major [place] 5.6 cm CV PACS LA Area Sys [...] Area 3.1 cm2 CV PACS MV Deceleration Runn[place] 5.1 m/s2 CV PACS E Wave Deceleration [...] S' 14 cm/s CV PACS RA Major [place] 5.2 cm CV PACS RA Major [place] Index 2.5 2.2 - 2.8 cm/m2 CV [...] year. Mammography location: [facility] [address], [address] -------- FINAL REPORT -------- Dictated By: Josiah Wild Dictated Date: 10/19/2024 17:51 ET Assigned Physician: Josiah Wild Reviewed and Electronically Signed By: Josiah Wild Signed Date: 10/19/2024 17:57 ET Workstation ID: [id number] Transcribed By: Self Edit Transcribed Date: 10/19/2024 [...] Tomosynthesis. 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 TISSUE DENSITY: The breasts are [...] Tomosynthesis. 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 TISSUE DENSITY: The breasts are [...] year. Mammography location: [facility] [address], [address] -------- FINAL REPORT -------- Dictated By: Josiah Wild Dictated Date: 10/19/2024 17:51 ET Assigned Physician: Josiah Wild Reviewed and Electronically Signed By: Josiah Wild Signed Date: 10/19/2024 17:57 ET Workstation ID: [id number] Transcribed By: Self Edit Transcribed Date: 10/19/2024 17:51 ET Jaida Machuca CNM IMG BI PROCEDURES Final Resul t * HPV with reflex genotype (10/05/2024 1:31 PM EDT) [facility] HPV Negative Negative LAB MICROBIOLOGY METHOD 10/06/2024 3:08 PM EDT [facility] Brushing/Spatula Cervix uteri structure / Unknown 10/05/2024 1:31 PM EDT 10/06/2024 8:10 AM EDT Jaida Machuca CNM LAB MOLECULAR DIAGNOSTICS ORD ERABLES Final Result [facility] [address] [place] [address], * Colonoscopy (09/15/2021) [facility] Colonoscopy Normal, Abstracted Anatomical Region Laterality Modality Other Historical Provider HEALTH MAINTENANCE Final Result * HIV Screening (05/13/2017) [facility] HIV Screening Abstracted Historical Provider HEALTH MAINTENANCE Final Result * Hepatitis C Screening (05/13/2017) [facility] Hepatitis C Screening Abstracted Historical Provider HEALTH MAINTENANCE Final Result from Last 3 Months or Most Recently Relevant to Health Maintenance Insurance [facility] Care Teams Residential Assistant Relationship Specialty Start Date End Date Melina Barber MD [address] [place] [address] [address] [facility] [place] [address] PCP - General 02/06/08
== END 2025-02-03 10:31 | disposition home or self-care (01) ==
LOC: HO.HOS 10:04
PROVIDERS: PCP Internal Medicine; Visit Provider Orthopaedic Surgery
DX: M17.12 Unilateral primary osteoarthritis, left knee (principal)
CPT/HCPCS: 20610; 99213

== ENCOUNTER → 2025-02-03 10:03 | Outpatient (BNVA) | payer OTHER, SELFPAY | PROVIDERS: PCP Internal Medicine; Visit Provider Orthopaedic Surgery | DX: M17.12 Unilateral primary osteoarthritis, left knee (principal); I25.10 Atherosclerotic heart disease of native coronary artery without angina pectoris; I25.2 Old myocardial infarction; E66.9 Obesity, unspecified; I73.9 Peripheral vascular disease, unspecified; K21.9 Gastro-esophageal reflux disease without esophagitis; E78.00 Pure hypercholesterolemia, unspecified; G47.00 Insomnia, unspecified; I10 Essential (primary) hypertension; G47.33 Obstructive sleep apnea (adult) (pediatric); E11.65 Type 2 diabetes mellitus with hyperglycemia; M51.369 Other intervertebral disc degeneration, lumbar region without mention of lumbar back pain or lower extremity pain; Z87.891 Personal history of nicotine dependence | CPT/HCPCS: 20610; 99212; J2003; J7318 ==

== ENCOUNTER 2025-06-11 15:16 | Outpatient (AMB) | payer OTHER, SELFPAY ==
[2025-06-11 15:37] VITALS: BP 102/64; PULSE 57; RESP 18; O2SAT 98; BMI 44.0
--- NOTE | 2025-06-11 15:37 | A.OFFPC_ITS ---
Vital Signs 06/11/25 15:37 Height 5 ft 3 in Weight 248 lb 6 oz BMI 44.0 BP 102/64 Position Sitting Respiration 18 Pulse 57 Pulse Source Pulse Oximeter Temp Source Temporal Artery Scan Pulse Oximetry (%) 98 Oxygen Delivery Method Room Air Intake Visit Reasons: Follow Up rescheduled Sweet Potato Disintegrator Required: No Accompanied by: Self / Same As Patient Allergies JASBIR Inhibitors (JASBIR INHIBITORS) Allergy (Severe, Verified 06/11/25 15:52) ANGIOEDEMA acetaminophen (From VICODIN) Allergy (Severe, Verified 06/11/25 15:52) ANGIOEDEMA hydrocodone (From VICODIN) Allergy (Severe, Verified 06/11/25 15:52) ANGIOEDEMA amlodipine Adverse Reaction (Intermediate, Verified 06/11/25 15:52) leg swelling Medication List - Last Reconciled 06/11/25 by RADHA Davila albuterol sulfate 2.5 mg (3 mL) inhalation Q4-6H PRN albuterol sulfate 90 mcg/actuation 2 puffs inhalation Q6H PRN atorvastatin 10 mg PO BEDTIME blood sugar diagnostic (FreeStyle Lite Strips) CHECK BLOOD SUGAR TWICE A DAY buspirone 10 mg PO BID carvedilol 12.5 mg PO BID [HeavyDUTYshower bench As directed] [iVAPS EPAP 8 & TVA 8 UT 14 PS 6-20 HT. 64 inches with 2L in NREM with heated humidified EPAP in range 6-9 TVA 7.7 -9.4] lancets (FreeStyle Lancets) 28 gauge miscellaneous BID 90 days lidocaine 4% (Salonpas (lidocaine)) 1 patch topical DAILY lidocaine 4% (Salonpas (lidocaine)) 1 patch topical TID PRN loperamide 2 mg PO QID PRN mometasone-formoterol 100-5 mcg/actuation (Dulera) 1 puff inhalation Q12H [oxygen As directed 2 L NC] pantoprazole 40 mg PO DAILY [Shower chair As directed] spironolactone 25 mg PO DAILY suvorexant (Belsomra) 5 mg PO BEDTIME tramadol 50 mg PO Q8H PRN Tobacco use date assessed: 06/11/25 Dental Screening Dental Screen Date: 06/11/25 Did you have a dental visit in the last 12 months?: Yes Did you have a dental problem in the last 6 months where you did not have access to dental care?: No Was dental information given to patient?: Patient has dentist HPI HPI Comments History of Present Illness Details The patient is a 50 year old female presenting for a three-month follow-up visit for management of chronic conditions. She reports her overall condition as good, with a decrease in knee pain and resolution of foot pain. She has a history of arthritis in both knees, which is worse in the left knee. She received gel injections approximately three months ago, which initially worsened the pain but has since improved. She also had tendinitis in her left foot, which has resolved following a five-day course of a steroid medication. Recently, the patient has experienced denials for her medication refills, in cluding carvedilol for blood pressure, tramadol and her inhaler for COPD. The patient recently began seeing a therapist and a psychiatrist for anxiety. She has had four sessions with the therapist and one visit with the psychiatrist. The psychiatrist prescribed buspirone 10 mg twice daily and belsomra to help with sleep, which is awaiting insurance approval. Health Maintenance Fasting labs will be ordered to check cholesterol, kidney function, liver function, and vitamin B12. An A1c test will not be ordered at this time, as it was recently ordered by her psychiatrist. Social History Results [facility] Medical History Coronary artery disease NSTEMI (non-ST elevated myocardial infarction) Rhinitis Acute sinusitis Leg abrasion Glaucoma Obesity Peripheral vascular disease Knee osteoarthritis GERD (gastroesophageal reflux disease) Hypercholesterolemia Insomnia B12 deficiency Hypertension Severe obstructive sleep apnea Non-STEMI (non-ST elevated myocardial infarction) Type 2 diabetes mellitus with hyperglycemia COPD (chronic obstructive pulmonary disease) DDD (degenerative disc disease), lumbar Surgical History History of gastric bypass Status post breast reduction Status post panniculectomy H/O left knee surgery History of surgery on arm LAP-BAND surgery status Family History Father Lung disease Diabetes Hypertension CVD (cardiovascular disease) Mother Diabetes Hypertension Maternal Grandmother Myocardial infarction Social History Housing: House Patient Tobacco Use Status: Former Tobacco user Tobacco use type: Cigarette e-Cigarette/Vaping Use: Never Used Second Hand Smoke Exposure: Yes service: No Current occupational status: unemployed and disabled Current occupation: Right hand dominate Cognitive needs: No Hearing needs: No Vision needs: Yes Questionnaire Thrive Questionnaire Date Thrive assessed: 06/11/25 I am a: Patient What is your living situation today?: I have a steady place to live Within the past 12 months, did the food you bought not last and you didn't have the money to get more?: Often true Within the past 12 months, did you worry whether your food would run out before you got money to buy more?: Often true Do you have trouble paying for medicines?: No Do you have trouble getting transportation to medical appointments?: No Do you have trouble paying your heating and electricity bill?: No Do you have trouble taking care of your child, family member or friend?: No Do you have trouble with day-to-day activities such as bathing, preparing meals, shopping, managing finances, etc.?: No Are you currently unemployed and looking for a job?: No Are you interested in more education?: No Please select the resources that you would like help with: None Currently or been in a relationship where the following occur: No concerns reported THRIVE Score: 2 MARV-7 AMB Questionnaire MARV-7 Date MARV - 7 assessed: 12/29/24 Source: Developed by Drs. Parvez Bernstein, Dena Aguilar, Jcarlos Sherman and colleagues, with an educational deann from [employer]. Review of Systems Narrative Review of Systems - General: Reports feeling good. - Musculoskeletal: Reports decreased pain in both knees, with the left being worse. Reports resolved pain in the left foot previously diagnosed as tendinitis. - Cardiovascular: Denies chest pain, shortness of breath, and heart palpitat ions. - Gastrointestinal: Denies stomach pain or any change in bowel habits. - Psychiatric: Reports anxiety. Reports needing medication for sleep. Const Reports difficulty sleeping and Denies headache(s) Eyes Denies loss of vision ENT Denies vertigo, Denies dizziness, Denies headache(s) and Denies sore throat Card Denies chest pain, Denies leg edema and Denies lightheadedness Resp Denies cough, Denies hemoptysis and Denies wheezing GI Denies abdominal pain, Denies melena, Denies constipation, Denies diarrhea and Denies vomiting Denies urinary frequency, Denies dysuria and Denies urinary urgency Musc Reports arthralgias (Bilateral knees, left knee worse), Denies joint swelling, Denies numbness, Denies tingling and Reports other (Left foot pain improved) Neuro Denies Abnormal speech present, Denies behavioral changes, Denies vertigo, Denies dizziness, Denies headache(s), Denies loss of vision, Denies memory loss, Denies numbness and Denies tingling Psych Reports anxiety, Denies behavioral changes, Denies depression, Denies memory loss and Denies panic attacks Aiden/Lymph Denies easy bleeding and Denies easy bruising Aller/Immun Denies wheezing Physical exam (Primary Care) Vital Signs: Last Vital Signs Pulse 57 06/11/25 15:37 Resp 18 06/11/25 15:37 BP 102/64 06/11/25 15:37 Pulse Ox 98 06/11/25 15:37 Oxygen Delivery Method Room Air 06/11/25 15:37 BMI result Body Mass Index 44.0 Tobacco/Smoking Status: Tobacco use Status Tobacco use date assessed 06/11/25 06/11/25 15:41 Patient Tobacco Use Status Former Tobacco user 06/11/25 15:41 Tobacco use type Cigarette 06/11/25 15:41 e-Cigarette/Vaping Use Never Used 06/11/25 15:41 Thrive Assessment: Date of Thrive Assessment Date Thrive assessed 06/11/25 06/11/25 15:41 Currently or been in a relationship where the following occur: No concerns reported Narrative Physical Exam - Vitals: Blood pressure 124/64 mmHg. - Lungs: Clear to auscultation bilaterally. Const General: healthy appearing, no acute distress, alert and awake Nutritional Appearance: well nourished Orientation/consciousness: oriented to person, oriented to place and oriented to time HENMT Ears: TM's normal bilaterally General nose exam: Normal nasal mucous membranes and turbinates present Eyes Conjunctivae: conjunctivae normal Sclerae: sclerae normal Pupils: Equal, round and reactive pupils present Neck Neck: Yes no lymphadenopathy and Yes no JVD Thyroid: Thyroid normal Carotids: no bruits Resp Effort & Inspection: normal respiratory effort and not tachypneic Auscultation: no crackles, no rales, no rhonchi and no wheezes Cardio Rate: regular rate Rhythm: regular rhythm Heart sounds: no murmurs and normal S1 and S2 GI Palpation (GI): Soft to palpation, nontender, no hepatomegaly and no splenomegaly Auscultation: normal bowel sounds General: Yes no CVA tenderness Back/Spine/Pelvis Back: no CVA tenderness Skin General skin exam: no rashes or lesions noted and dry skin Neuro General: oriented to person, oriented to place and oriented to time Cranial nerves: Yes Equal, round and reactive pupils present Speech: No Abnormal speech present Gait exam (Neuro): Normal gait present Motor exam (neuro): no tremor noted Extrem Right upper extremity: full ROM Left upper extremity: full ROM Right lower extremity: full ROM and knee Details: no tenderness and no swelling; no edema Left lower extremity: full ROM, knee Details: no tenderness and no swelling and foot Details: no tenderness; no edema Psych Mental Status: mental status grossly normal Speech and movement: Normal speech and movement present Affect: normal affect Attitude: cooperative Thought process: Normal thought process present Results Reviewed Results Reviewed: Laboratory Tests 02/10/24 09:39 WBC 8.6 RBC 5.13 Hgb 12.9 Hct 40.0 MCV 78.0 L MCH 25.1 L MCHC 32.3 RDW 14.7 Plt Count 271 Coding Level of Care Code Est Pt Level 4 (75550) Diagnoses Generalized anxiety disorder F41.1 Essential hypertension I10 Hypertension type: essential hypertension Hypercholesterolemia E78.00 Type 2 diabetes mellitus with hyperglycemia, without long-term current use of insulin E11.65 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 Follow up with Psychiatry as scheduled (2) Hypertension: Comment: Coronary angiography March 2020 normal hypertension demand ischemia Code(s): I10 - Essential (primary) hypertension Category: Medical Qualifiers: Hypertension type: essential hypertension Qualified Code(s): I10 - Essential (primary) hypertension Plan: BP 102/64 mm Hg-within goal Reinforced low-salt diet Carvedilol 12.5 mg b.i.d., spironolactone 25 mg daily (3) Hypercholesterolemia: Code(s): E78.00 - Pure hypercholesterolemia, unspecified Category: Medical Plan: No recent lipid panel Discussed lifestyle modifications including dietary changes and physical activity Continue atorvastatin 10 mg at bedtime Lipid panel ordered further evaluate (4) Type 2 diabetes mellitus with hyperglycemia: Code(s): E11.65 - Type 2 diabetes mellitus with hyperglycemia Category: Medical Qualifiers: Diabetes mellitus retirement insulin use: without retirement use Qualified Code(s): E11.65 - Type 2 diabetes mellitus with hyperglycemia Plan: A1c 6.2 % in office, goal is less than 7% Continue low sugar/carbohydrate diet We will continue to monitor fasting glucose and A1c (5) GERD (gastroesophageal reflux disease): Code(s): K21.9 - Gastro-esophageal reflux disease without esophagitis Category: Medical Qualifiers: Esophagitis presence: without esophagitis Qualified Code(s): K21.9 - Gastro-esophageal reflux disease without esophagitis Plan: Reinforced dietary restrictions Continue pantoprazole 40 mg daily (6) Plantar fasciitis of left foot: Code(s): M72.2 - Plantar fascial fibromatosis Category: Medical Plan: She had tendinitis in her left foot, which has resolved following a five-day course of a steroid medication. (7) Knee pain, bilateral: Code(s): M25.561 - Pain in right knee; M25.562 - Pain in left knee Category: Medical Qualifiers: Chronicity: chronic Qualified Code(s): M25.561 - Pain in right knee; M25.562 - Pain in left knee; G89.29 - Other chronic pain Plan: The patient reports decreased bilateral knee pain, which is an improvement since her gel injections three months ago. Her prescription for tramadol, which had been denied, will be resent to the pharmacy (8) COPD (chronic obstructive pulmonary disease): Code(s): J44.9 - Chronic obstructive pulmonary disease, unspecified Category: Medical Qualifiers: COPD type: emphysema Emphysema type: unspecified Qualified Code(s): J43.9 - Emphysema, unspecified Plan: Denies shortness of breath. No abnormal breath sounds on exam Continue Dulera 1 puff inhalation q.12 hours, albuterol sulfate 2.5 mg via neb q.4-6 hours p.r.n., supplemental oxygen as needed (9) Severe obstructive sleep apnea: Comment: Started on IVAPS intelligent volume assured pressure support Code(s): G47.33 - Obstructive sleep apnea (adult) (pediatric) Category: Medical Plan: Continue IVAPS Plan Plan Patient was informed and verbally consented to the use of an ambient scribe for clinic note documentation during this visit. 1. Knee Osteoarthritis The patient reports decreased bilateral knee pain, which is an improvement since her gel injections three months ago. Her prescription for tramadol, which had been denied, will be resent to the pharmacy. 2. Medication Refill Management The patient reported that refills for carvedilol, tramadol, and her COPD inhaler were denied by the pharmacy. These prescriptions will be resent to the pharmacy. 3. Anxiety Disorder The patient recently started care with a psychiatrist for anxiety and has been prescribed buspirone 10 mg twice daily and another unnamed medication for sleep. She will follow up with the psychiatrist in two weeks to evaluate the effecti veness of the new medications. Discussion Notes I addressed the patient's concerns regarding her denied medication refills. I have resent the prescriptions for carvedilol, tramadol, and her COPD inhaler to her pharmacy. An order for fasting labs has been placed to monitor for cholesterol, kidney and liver function, and vitamin B12 levels. We discussed her new psychiatric care, and I noted her new medications. She will follow up here as per her usual schedule in approximately three months. Patient Instructions - Please go for fasting lab work as soon as you can to check your cholesterol, k idney, and liver function. - Your prescriptions for carvedilol, tramadol, and your COPD inhaler have been sent again to your pharmacy. - Continue to take your new medications from your psychiatrist as directed. - Follow up with your psychiatrist in two weeks to see how the medications are working. - Plan to follow up with your primary doctor in about three months. Orders: Orders Complete Blood Count Auto Diff 06/11/25 E66.01 - Morbid (severe) obesity due to excess calories, E78.00 - Pure hypercholesterolemia, unspecified, F41.1 - Generalized anxiety disorder, I10 - Essential (primary) hypertension, I73.9 - Peripheral vascular disease, unspecified, Z68.44 - Body mass index [BMI] 60.0- 69.9, adult Comprehensive [place]. Panel Fast 06/11/25 E66. - Morbid (severe) obesity due to excess calories, E78.00 - Pure hypercholesterolemia, unspecified, F41.1 - Gener alized anxiety disorder, I10 - Essential (primary) hypertension, I73.9 - Peripheral vascular disease, unspecified, Z68.44 - Body mass index [BMI] 60.0- 69.9, adult UA CC w/rflx Micro + Cult 06/11/25 E6. - Morbid (severe) obesity due to excess calories, E78.00 - Pure hypercholesterolemia, unspecified, F41.1 - Generalized anxiety disorder, I10 - Essential (primary) hypertension, I73.9 - Peripheral vascular disease, unspecified, Z68.44 - Body mass index [BMI] 60.0- 69.9, adult Vitamin B12 and Folate 06/11/25 E53.8 - Deficiency of other specified B group vitamins AMB Hemoglobin A1c 06/11/25 E11.65 - Type 2 diabetes mellitus with hyperglycemia TSH reflex Free T4 06/11/25 E66.01 - Morbid (severe) obesity due to excess calories, E78.00 - Pure hypercholesterolemia, unspecified, F41.1 - Generalized anxiety disorder, I10 - Essential (primary) hypertension, I73.9 - Peripheral vascular disease, unspecified, Z68.44 - Body mass index [BMI] 60.0-69.9, adult Lipid Panel 06/11/25 E66.01 - Morbid (severe) obesity due to excess calories, E78.00 - Pure hypercholesterolemia, unspecified, F41.1 - Generalized anxiety disorder, I10 - Essential (primary) hypertension, I73.9 - Peripheral vascular disease, unspecified, Z68.44 - Body mass index [BMI] 60.0-69.9, adult Vitamin D 25-OH Total 06/11/25 E66. - Morbid (severe) obesity due to excess calories, E78.00 - Pure hypercholesterolemia, unspecified, F41.1 - Generalized anxiety disorder, I10 - Essential (primary) hypertension, I73.9 - Peripheral vascular disease, unspecified, Z68.44 - Body mass index [BMI] 60.0-69.9, adult Medications: Refilled carvedilol must administer with a meal/food 12.5 mg PO BID 60 tabs 11RF I10 - Essential (primary) hypertension lidocaine 4% (Salonpas (lidocaine)) 1 patch topical TID PRN 60 ea 1RF pain M25.511 - Pain in right shoulder tramadol 50 mg PO Q8H PRN 90 tabs 0RF pain M25.561 - Pain in right knee, M25.562 - Pain in left knee albuterol sulfate 90 mcg/actuation 2 puffs inhalation Q6H PRN 8.5 ea 0RF shortness of breath or wheezing J43.9 - Emphysema, unspecified
== END 2025-06-11 16:12 | disposition home or self-care (01) ==
LOC: HO.HMCH 15:16
PROVIDERS: PCP Internal Medicine
DX: F41.1 Generalized anxiety disorder (principal); I10 Essential (primary) hypertension; E11.65 Type 2 diabetes mellitus with hyperglycemia; J43.9 Emphysema, unspecified; E78.00 Pure hypercholesterolemia, unspecified; K21.9 Gastro-esophageal reflux disease without esophagitis; M72.2 Plantar fascial fibromatosis; M25.561 Pain in right knee; M25.562 Pain in left knee; G89.29 Other chronic pain; G47.33 Obstructive sleep apnea (adult) (pediatric)

== ENCOUNTER → 2025-06-11 15:16 | Outpatient (BNVA) | payer OTHER, SELFPAY | PROVIDERS: PCP Internal Medicine | DX: Z51.81 Encounter for therapeutic drug level monitoring (principal); F41.1 Generalized anxiety disorder; I10 Essential (primary) hypertension; E78.00 Pure hypercholesterolemia, unspecified; E11.65 Type 2 diabetes mellitus with hyperglycemia; K21.9 Gastro-esophageal reflux disease without esophagitis; M72.2 Plantar fascial fibromatosis; M25.561 Pain in right knee; M25.562 Pain in left knee; G89.29 Other chronic pain; J43.9 Emphysema, unspecified; G47.33 Obstructive sleep apnea (adult) (pediatric); Z79.891 Long term (current) use of opiate analgesic; Z79.899 Other long term (current) drug therapy | CPT/HCPCS: 99212 ==

== ENCOUNTER 2025-06-19 08:45 | Outpatient (REF) | payer OTHER, SELFPAY ==
--- OUTSIDE RECORDS SUMMARY | 2025-06-16 15:30 | XMS_ITS | Encounter Summary ---
Author Organization [facility] Address [address] [place] [address] Care Team Providers Care Curtain Framer Name Role Phone Melina Barber MD Primary Care Provider [phone] Reason for Visit * Reason Comments Pain Encounter Details Date Type Department Care Team ([facility] st Contact Info) Description 06/16/2025 3:30 PM EST Office Visit Orthopedic Surgery - [facility] [address] [phone] Jordan Pang, DPM [address] [phone] Posterior tibial tendon dysfunction (PTTD) of left lower extremity (Primary Dx); Arthritis of left ankle Social History Tobacco Use Types Packs/Day Years Used Date Smoking Tobacco: Former Cigarettes 0 Q uit: 04/29/2019 Smokeless Tobacco: Never Alcohol [...] for your loved ones. For example, child development associate teacher or elderly care for an older adult? [...] Date Recorded What is your living situation? 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 Answer Date of Assessment Author No 10/09/2024 4:24 PM EDT Anderson RN * Are you blind or do you have serious difficulty seeing, even when wearing glasses? Answer Date of Assessment Author No 10/09/2024 4:24 PM EDT Anderson RN * Do you have serious difficulty walking or climbing stairs? Answer Date of Assessment Author No 10/09/2024 4:24 PM EDT Anderson RN * Do you have serious difficulty dressing or bathing? Answer Date of Assessment Author No 10/09/2024 4:24 PM EDT Anderson RN * Because of a physical, mental, or emotional condition, do you have serious difficulty doing errandsalone such as visiting the doctor? Answer Date of Assessment Author No 10/09/2024 4:24 PM Feng RN documented as of this encounter Mental Status * Because of a physical, mental, or emotional condition, do you have serious difficulty concentrating, remembering, or making decisions? (5 years old or older) Answer Entry Date Author No 10/09/2024 4:24 PM Feng RN documented in this encounter Progress Notes * Jordan Pang, INESSA - 06/16/2025 3:30 PM EST S Patient presented complaining of pain in her left foot and ankle she states been going for the lastmonth sharp shooting achy pain has improved tremendously states been using insoles as instructed states her pain is comes primary completely resolved occasionally gets some pain discomfort on top of her feet overall is doing much better ROS: GENERAL: Pt denies nausea, fever, vomiting, chills, or shortness of breath. Pt in NAD. CARDIOLOGY: pt denies chest pain, palpitations LUNGS: pt denies shortness of breath MUSCULOSKELETAL: See HPI, otherwise no joint pain or swelling, back pain, or muscle pain. SKIN: see HPI, otherwise no lesions, rash or itching NEURO: No persistent headache, weakness or numbness The remainder of the review of systems is noncontributory PAST MEDICAL HISTORY: Patient Active Problem List Diagnosis Class 3 severe obesity due to excess calories with serious comorbidity and body mass index (BMI) of40.0 [place] 44.9 [place] [place] [facility] [place] NSTEMI (non-ST elevated myocardial infarction) [place] [place] [facility] [place] Asthma Bilateral carpal tunnel syndrome COPD (chronic obstructive pulmonary disease) [place] [place] [facility] [place] DJD (degenerative joint disease) of knee Edema Glaucoma Hyperlipidemia Hypertension Hypokalemia Hypoxemia Obstructive sleep apnea Shortness of breath on exertion Smoking Trigger finger of left thumb Vitamin D deficiency Bariatric surgery status SOCIAL HISTORY: Social History Tobacco Use Smoking status: Former Current packs/day: 0.00 Types: Cigarettes Quit date: 04/29/2019 Years since quittin.1 Smokeless tobacco: Never Substance Use Topics Alcohol use: Not Currently ACTIVE MEDICATIONS: Outpatient Medications Marked as Taking for the 06/16/25 encounter (Office Visit) with Jordan Pang DPM Medication Sig Dispense Refill acetaminophen (TYLENOL) 500 mg tablet TAKE 1 TABLET BY MOUTH FOUR TIMES DAILY FOR PAIN albuterol HFA (ProAir HFA) 90 mcg/actuation inhaler albuterol HFA (PROVENTIL HFA;VENTOLIN HFA) 108 (90 Base) MCG/ACT inhaler Inhale into the lungs. atorvastatin (LIPITOR) 10 mg tablet blood sugar diagnostic (FreeStyle Lite Strips) test strip carvediloL (COREG) 12.5 mg tablet Take 1 tablet (12.5 mg total) by mouth 2 (two) times a day with meals. cyanocobalamin, vitamin B-12, 1,000 mcg tablet, sublingual PLACE 1 TABLET UNDER THE TONGUE DAILY FOR 90 DAYS. *NOT CVRD 90 tablet 90 ferrous sulfate 324 mg (65 mg elemental iron) EC tablet TAKE 1 TABLET BY MOUTH EVERY DAY 90 tablet 0 freestyle (TRUEplus Lancets) 28 gauge lancets furosemide (LASIX) 20 mg tablet Take 1 tablet Mon, Wed and Fri 30 each 11 ibuprofen (ADVIL,MOTRIN) 600 mg tablet TAKE 1 TABLET BY MOUTH THREE TIMES DAILY WITH MEALS FOR PAIN, MAX 2400MG/DAY loperamide (IMODIUM) 2 mg capsule TAKE 1 CAPSULE BY MOUTH 4 TIMES DAILY NEEDED FOR DIARRHEA FOR UP TO 10 DAYS. 40 capsule 0 mometasone-formoterol (DULERA 100) 100-5 mcg/actuation inhaler Inhale into the lungs. mometasone-formoterol (Dulera) 100-5 mcg/actuation inhaler INHALE 1 PUFF EVERY 12 HOURS,RINSE MOUTHWITH WATER & SPIT OUT AFTER EACH DOSE TO PREVENT INFECTION pantoprazole (PROTONIX) 40 mg EC tablet Take 1 tablet (40 mg total) by mouth 1 (one) time each day. pen needle, diabetic (Lite Touch Insulin Pen [place]) 29 gauge x 1/2 needle 1 Units by Does not apply route once a week for 8 doses. phentermine 15 mg capsule Take 1 capsule (15 mg total) by mouth 1 (one) time each day before breakfast. Max Daily Amount: 15 mg 30 each 0 simethicone (MYLICON) 125 mg chewable tablet TAKE 1 TABLET BY MOUTH EVERY 6 HOURS NEEDED FOR FLATULENCE FOR UP TO 30 DAYS. spironolactone (ALDACTONE) 25 mg tablet Take 1 tablet (25 mg total) by mouth 1 (one) time each day. tirzepatide, weight loss, (Zepbound) 2.5 mg/0.5 mL injection Inject 0.5 mL (2.5 mg total) under theskin every 7 (seven) days. 2 mL 0 topiramate (Topamax) 50 mg tablet Take 1 tablet (50 mg total) by mouth at bedtime. 30 each 2 traMADoL (ULTRAM) 50 mg tablet as needed. Vitamins B Complex tablet Take 1 tablet by mouth 1 (one) time each day. zinc glycinate 30 mg capsule Take 1 Capsule by mouth daily. ALLERGIES: Allergies Allergen Reactions [place] Inhibitors Swelling Hydrocodone-Acetaminophen Swelling PHYSICAL EXAM: Visit Vitals OB Status Perimenopausal Smoking Status Former PODIATRIC EXAMINATION: GENERAL: Patient appears well nourished, with NAD. VASCULAR: Dorsalis pedis pulses are 2/4 bilaterally and Posterior tibial pulses are 2/4 bilaterally. Capillary filling time within normal limits the digits. No pallor on elevation or rubor on dependency. No varicosities. Denies rest pain or claudication pain. NEUROLOGICAL: Sharp/dull sensation intact, protective sensation intact 10/10 with 5.07 semmes bright bilaterally, vibratory sensation with tuning fork intact to the tibial tuberosity. ORTHOPEDIC: Good muscle strength 5/5 of all flexors and extensors. Dorsi flexion of ankle , , plantar flexion WNL. No muscle atrophy. Equinus with 5 degrees dorsiflexion with knee bent 0 degrees with knee extended positive silver skoild test Positive pain on palpation of the posterior tibial tendon left, unable to to perform single and double heel raise No pain on palpation of the Achilles tendon. Negative palpable deficits of the Achilles tendon Normal range of motion of the ankle joint and subtalar joint DERMATOLOGICAL:.No masses or skin lesions noted. Normal skin temperature, normal skin turgor. BIOMECHANICS: Ankle ROM sharp pain with palpation anterior gutter left ankle, STJ ROM wnl, MTJ ROM wnl, 1st MPJ ROM wnl. IMAGING: IMPRESSION: 1. Posterior tibial tendon dysfunction (PTTD) of left lower extremity 2. Arthritis of left ankle PLAN: Pt was seen and examined, history reviewed. Treatment options were discussed and reviewed including stretching exercises demonstrated for patient anti-inflammatory medications steroid injections orthotics and insoles Continue with UCBL custom orthotic Chronic arthritis discussed and reviewed possibilities of steroid junction discussed and reviewed Follow-up appointment offered in 1 to 3 months Jordan Pang DPM documented in this encounter Plan of Treatment Upcoming Encounters Date Type Department Care Team (Late st Contact Info) Description 07/06/2025 3:30 PM EST Office Visit Orthopedic Surgery - [facility] [address] [facility] [address] [place] [phone] Jordan Pang DPM 175 [facility] [address] [place] [phone] 09/06/2025 3:45 PM EST Office Visit Bariatric Surgery - [facility] 175 [facility] [address] [place] [phone] Desirae Knutson PA [address] [place] [phone] 03/16/2026 3:45 PM EDT Office Visit Pulmonology [facility] 175 [facility] [address] [place] [phone] Bhaskar Barnes MD [address] [place] [phone] documented as of this encounter Visit Diagnoses Diagnosis Posterior tibial tendon dysfunction (PTTD) of left lower extremity- Primary Arthritis of left ankle documented in this encounter Additional Health Concerns Assessment Noted Time PHQ-9 Depression Total Score: 0 10/06/19 25 11:54 AM EDT documented as of this encounter Care Teams Curtain Framer Relationship Specialty Start Date End Date Melina Barber MD [address] [place] [address] [address] [facility] [place] [address] PCP - General 02/06/08 documented as of this encounter
--- OUTSIDE RECORDS SUMMARY | 2025-06-19 08:48 | XMS_ITS | Clinical Summary ---
Author Organization Patient Business Ser [facility] Address [address] [place] [address] Care Team Providers Care Asbestos Abatement Worker Name Role Phone Melina Barber MD Primary Care Provider [phone] Allergies Active Allergy Reactions Criticality Noted Date [...] pen needle, diabetic (Lite Touch Insulin Pen Dickinson) 29 gauge x 1/2 needle 1 Units by Does not apply route once a week for 8 doses. 3 Active mometasone-formo terol (Dulera) 100-5 mcg/actuation inhaler INHALE 1 PUFF EVERY 12 HOURS,RINSE MOUTH WITH WATER & SPIT OUT AFTER EACH DOSE TO PREVENT INFECTION 2 Active mometasone-formo terol (DULERA 100) 100-5 mcg/actuation inhaler Inhale into [...] tablet Mon, Wed and Fri 30 each 5 Active carvediloL (COREG) 12.5 mg tablet Take 1 tablet (12.5 mg total) by mouth 2 (two) times a day with meals. 5 09/03/19 26 Active tiZANidine (ZANAFLEX) 2 mg tablet Take 1 tablet (2 mg total) by mouth every 6 (six) hours if needed for muscle spasms for up to 5 days. 20 each 5 Active ferrous sulfate 324 mg (65 mg elemental iron) EC tablet TAKE 1 TABLET BY MOUTH EVERY DAY 90 tablet 5 Active loperamide (IMODIUM) 2 mg capsule TAKE 1 CAPSULE BY MOUTH 4 TIMES DAILY NEEDED FOR DIARRHEA FOR UP TO 10 DAYS. 40 capsule 5 Active tirzepatide, weight loss, (Zepbound) 2.5 mg/0.5 mL injectionIndicat ions:Class 3 severe obesity due to excess calories with serious comorbidity and body mass index (BMI) of 40.0 to 44.9 in adult (CMS/HCC V24, CMS/HCC V28),Bariatric surgery status,Obstructi ve sleep apnea Inject 0.5 mL (2.5 mg total) under the skin every 7 (seven) days. 2 mL Active phentermine 15 mg capsule Take 1 capsule (15 mg total) by mouth 1 (one) time each day before breakfast. Max Daily Amount: 15 mg 30 each 5 09/15/19 26 Active topiramate (Topamax) 50 mg tablet Take 1 tablet (50 mg total) by mouth at bedtime. 30 each 2 5 09/15/19 26 Active Active Problems Problem Noted Date Diagnosed Date Bariatric surgery status 05/21/2024 Class 3 severe obesity due t o excess calories with serious comorbidity and body mass index (BMI) of 40.0 to 44.9 in adult 04/28/2024 Asthma 04/28/2024 Hyperlipidemia 04/28/2024 Overview (04/28/2024): [...] gastric bypass and cholecystectomy. NSTEMI (non-ST elevated myocardial infarction) 0 08/30/2020 Overview (04/28/2024): 03/2020 [facility] admit Last Assessment & Plan: She had a type II demand [place] likely secondary to elevated blood pressures. Her [...] Obstructive sleep apnea 08/30/2020 COPD (chronic obstructive pulmonary disease) 07/2019 DJD (degenerative joint disease) of knee 020 Glaucoma 04/07/2020 Hypertension 04/07/2020 Overview (04/28/2024): Last Assessment & Plan: 124/72 in office today, well-controlled. Continue current regimen. Assessment & Plan (09/03/2024 10:40 AM EST): Has improved since gastric bypass. I will reduce carvedilol to 12.5 mg at twice a day Smoking 12/10/2018 Encounters Date Type Department Care Team Description 06/16/2025 3:30 PM EST Office Visit Orthopedic Surgery [facility] [address] [phone] Jordan Pang, DPM Posterior tibial tendon dysfunction (PTTD) of left lower extremity (Primary Dx); Arthritis of left ankle 06/15/2025 Telephone Bariatric Surgery [address] [address] Desirae Knutson PA 05/25/2025 Telephone Bariatric Surgery [address] [address] Desirae Knutson PA 05/19/2025 4:00 PM EST Office Visit Bariatric Surgery [address] [phone] Desirae Knutson PA Class 3 severe obesity due to excess calories with serious comorbidity and body mass index (BMI) of 40.0 to 44.9 in adult (CMS/[facility] V24, [facility] V28) (Primary Dx); Bariatric surgery status; Obstructive sleep apnea from Last 3 Months Immunizations Immunization Administration Dates Next Due Hepatitis B (Uztzgxa-Y-Xnrht , Recombivax HB-Adult) 19yo and older 03/28/2016,10/24/2015,08/12/2015 [...] ABDOMINOPLASTY 2013 PROCEDURE: HISTORICAL TUMMY TUCK; COMMENT: [facility] BREAST REDUCTION 2015 PROCEDURE: OR BREAST REDUCTION; COMMENT: [facility] KNEE SURGERY 2002 Left PROCEDURE: HISTORICAL [...] DX:Hypertension COPD (chronic obstructive pu lmonary disease) ([facility] V24, [facility] V28) 04/07/2020 DX:COPD (chronic o bstructive pulmonary disease) ([facility]) DJD (degenerative joint dise ase) of knee 04/07/2020 DX:DJD (degenerative joint d isease) of knee Class 3 severe obesity due t o excess calories with serious comorbidity and body mass index (BMI) of 60.0 to 69.9 in adult ([facility] V24, [facility] V28) 05/22/2018 DX:Class 3 severe obesity due to excess calories with serious comorbidity and body mass index (BMI) of 60.0 to 69.9 in adult ([facility]) NSTEMI (non-ST elevated myoc ardial infarction) ([facility] V24, [facility] V28) 08/30/2020 DX:NSTEMI (non- ST elevated myocardial infarction) ([facility]); COMMENT: 03/2020 [facility] admit Hypoxemia 08/30/2020 DX:Hypoxemia; CO MMENT: Persistent, during sleep Hyperlipidemia DX:Hyperlipidemi a Esophageal reflux DX:Esophageal reflux Hypokalemia DX:Hypokalemia Dependent edema DX:Dependent jameson hawk Family History Medical History Relation Name Comments Diabetes Aunt 1 HTN, arthritis, [place] breast Breast cancer Aunt 2 Breast cancer Aunt 3 Diabetes Father Serjio Goff HTN, stroke, CVD, Lung disease Hypertension Father Serjio Zamoradan Diabetes Maternal Grandfather Chidi Brice HTN Heart attack Maternal Grandfather Chidi Brice Diabetes Maternal Grandmother Becca Brice HTN , stroke, [place] Other: unknown heart problems Maternal Grandmother Becca Brice Diabetes Mother Serjio webern HTN, arthrit is Hypertension Mother Serjio zamoradan Diabetes Paternal Grandfather Chidi brice HTN Diabetes Paternal Grandmother Becca Brice HTN No Known Problems Sister 1 No Known Problems Sister 2 Colon cancer Neg Hx Ovarian cancer Neg Hx Prostate cancer Neg Hx Relation Name Status Comments Aunt 1 Aunt 2 Aunt 3 Father Serjio Goff Half-Sister x4 Alive Maternal Grandfather Chidi Brice Maternal Grandmother Becca Brice Mother Serjio goff Alive Paternal Grandfather Chidi brice Paternal Grandmother Becca Brice Sister 1 Alive Sister 2 Alive Social History Tobacco Use Types Packs/Day Years Used Date Smoking Tobacco: Former Cigarettes 0 Q uit: 04/29/2019 Smokeless Tobacco: Never Tobacco Cessation:Counseling Given: Not Answered Alcohol Use Standard Drinks/Week Comments Not Currently [...] for your loved ones. For example, child protection specialist or elderly care for an older adult? 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 Not on file Not on file Not on file Obstetrics History Para Term AB IAB SAB Ectopic Multiple Livin g Live Births 0 0 0 0 0 0 0 0 Last Filed Vital Signs Vital Sign Reading Time Taken Comments Blood Pressure 118/75 05/19/2025 3:43 PM EST Pulse 58 05/19/2025 3:43 PM EST Temperature 36.4 C (97.5 F) 03/12/2025 2:53 PM EDT Respiratory Rate 20 03/12/2025 2:53 PM EDT Oxygen Saturation 96% 03/12/2025 2:53 PM EDT Inhaled Oxygen Concentration - - Weight 115 kg (253 lb) 05/19/2025 3:43 PM EST Height 160 cm (5' 3 ) 05/19/2025 3:43 PM EST Body Mass Index 44.82 05/19/2025 3:43 PM EST Plan of Treatment Upcoming Encounters Date Type Department Care Team (Late st Contact Info) Description 07/06/2025 3:30 PM EST Office Visit Orthopedic Surgery - [place] 250 175 [facility] 250 [place] [phone] Jordan Pang DPM 175 [facility] 250 [place] [phone] 09/06/2025 3:45 PM EST Office Visit Bariatric Surgery - [place] 175 [facility] 120 [place] [phone] Desirae Knutson PA 230 [place] [phone] 03/16/2026 3:45 PM EDT Office Visit Pulmonology - [place] 175 [facility] 200 [place] [phone] Bhaskar Barnes MD 230 [place] [phone] Health Maintenance Due Date Last Done Comments Drug Screen 1973 Non-Opioid Controlled Substance Agreement 1973 Diabetes: Annual Foot Exam 1983 Diabetes: Annual Retina Eye Exam 1983 RSV Immunization Adult Patients (1 - Risk 50-74 years 1-dose series) 2023 COVID-19 Vaccine ( season) 2025 09/10/2023, 07/11/2022, 05/17/2022, Additional history exists Influenza Vaccine (#1) 2025 , 05/08/2023, 05/17/2022, Additional history exists Diabetes: Annual Urine Albumin-Creatinine Ratio (uACR) 06/16/2025 Diabetes: Blood Sugar Control Test (HGBA1C) 06/16/2025 07/11/2022 DTaP,Tdap,and Td Vaccines (2 - Td or Tdap) 07/26/2025 07/26/2015 Social Influencers of Health Screening 10/05/2025 10/05/2024 Diabetes: Annual GFR (Glomerular Filtration Rate) 11/27/2025 11/27/2024, 05/21/2024, 12/25/2023, Additional history exists Hypertension/CHF/CAD Annual BMP Blood Test 11/27/2025 11/27/2024, [...] Procedure Name Priority Date/Time Associated Diagnosis Comments BASIC METABOLIC PANEL Routine 11/27/2024 2:23 PM EDT Chronic diastolic congestive heart failure (CMS/HCC V24, CMS/HCC V28) LIPID PANEL WITH REFLEX TO DIRECT LDL [...] routine gynecological exam Screening for cervical cancer HEMOGLOBIN A1C Routine 07/11/2022 COLONOSCOPY Routine 09/15/2021 HEPATITIS C SCREENING Routine 05/13/2017 HIV SCREENING Routine 05/13/2017 from Last 3 Months or Most Recently Relevant to Health Maintenance Results * (ABNORMAL) Lipid panel with reflex to direct LDL (11/27/2024 2:23 PM EDT) Cholesterol 173 0 - 200 mg/dL LAB CHEMISTRY METHOD 11/27/2024 6:44 PM EDT [facility] Triglycerides 206(H) 0 - 150 mg/dL LAB CHEMISTRY METHOD 11/27/2024 6:44 PM EDT [facility] HDL 55 >=40 mg/dL LAB CHEMISTRY METHOD 11/27/2024 6:44 PM EDT [facility] LDL Calculated 77 0 - 100 mg/dL LAB CHEMISTRY METHOD 11/27/2024 6:44 PM EDT [facility] VLDL Cholesterol Jimmy 41.2 mg/dL LAB CHEMISTRY METHOD 11/27/2024 6:44 PM EDT [facility] Non HDL Chol. (LDL+VLDL) 118 <145 mg/dL LAB CHEMISTRY METHOD 11/27/2024 6:44 PM EDT [facility] Chol/HDL Ratio 3.1 0.0 - 4.4 LAB CHEMISTRY METHOD 11/27/2024 6:44 PM [facility] Blood Venous blood specimen / Unknown Venipuncture / Unknown 11/27/2024 2:23 PM EDT 11/27/2024 2:23 PM EDT us Jr Galindo MD LAB BLOOD ORDERABLES Final Resul t [facility] [address] [place] [address], [place] [phone] * Basic metabolic panel (11/27/2024 2:23 PM EDT) Sodium 143 133 - 145 mmol/L LAB CHEMISTRY METHOD 11/27/2024 6:42 PM [facility] Potassium 4.5 3.5 - 5.5 mmol/L LAB CHEMISTRY METHOD 11/27/2024 6:42 PM [facility] Chloride 105 96 - 110 mmol/L LAB CHEMISTRY METHOD 11/27/2024 6:42 PM [facility] CO2 32 21 - 32 mmol/L LAB CHEMISTRY METHOD 11/27/2024 6:42 PM [facility] Anion Gap 6 3 - 11 LAB CHEMISTRY METHOD 11/27/2024 6:42 PM [facility] Glucose 84 70 - 100 mg/dL LAB CHEMISTRY METHOD 11/27/2024 6:42 PM [facility] BUN 13 5 - 25 mg/dL LAB CHEMISTRY METHOD 11/27/2024 6:42 PM [facility] Creatinine 0.72 0.50 - 1.10 mg/dL LAB CHEMISTRY METHOD 11/27/2024 6:42 PM [facility] eGFR 101 >=60 mL/min/1. 73m2 LAB CHEMISTRY METHOD 11/27/2024 6:42 PM [facility] Comment:Calculation based on the Chronic Kidney Disease Epidemiology Collaboration (CKD-EPI) equation refit without adjustment for race. BUN/Creatinine Ratio 18.1 LAB CHEMISTRY METHOD 11/27/2024 6:42 PM EDT [facility] Calcium 9.0 8.5 - 10.5 mg/dL LAB CHEMISTRY METHOD 11/27/2024 6:42 PM EDT [facility] Blood Venous blood specimen / Unknown Venipuncture / Unknown 11/27/2024 2:23 PM EDT 11/27/2024 2:23 PM EDT us Jr Galindo MD LAB BLOOD ORDERABLES Final Resul t [facility] [address] [place] [address], [place] [phone] * MG Mammo Digital Screening w Brian [...] year. Mammography location: [facility] [address] [place], [address] -------- FINAL REPORT -------- Dictated By: Josiah Wild Dictated Date: 10/19/2024 17:51 ET Assigned Physician: Josiah Wild Reviewed and Electronically Signed By: Josiah Wild Signed Date: 10/19/2024 17:57 ET Workstation ID: [id number] Transcribed By: Self Edit Transcribed Date: 10/19/2024 [...] Tomosynthesis. 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 TISSUE DENSITY: The breasts [...] Tomosynthesis. 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 TISSUE DENSITY: The breasts [...] year. Mammography location: [facility] [address], [address] -------- FINAL REPORT -------- Dictated By: Josiah Wild Dictated Date: 10/19/2024 17:51 ET Assigned Physician: Josiah Wild Reviewed and Electronically Signed By: Josiah Wild Signed Date: 10/19/2024 17:57 ET Workstation ID: [id number] Transcribed By: Self Edit Transcribed Date: 10/19/2024 17:51 ET Jaida Machuca CNM IMG BI PROCEDURES Final Resul t * HPV with reflex genotype (10/05/2024 1:31 PM EDT) [facility] HPV Negative Negative LAB MICROBIOLOGY METHOD 10/06/2024 3:08 PM EDT [facility] Brushing/Spatula Cervix uteri structure / Unknown 10/05/2024 1:31 PM EDT 10/06/2024 8:10 AM EDT Jaida Machuca CNM LAB MOLECULAR DIAGNOSTICS ORD ERABLES Final Result [facility] [address] [place] [address], * (ABNORMAL) Hemoglobin A1c (07/11/2022) [facility] Hemoglobin A1C 6.6(A) <=6.5 % Blood Venous blood specimen / Unknown Result [facility] Provider LAB BLOOD ORDERABLES Yuly l Result * Colonoscopy (09/15/2021) [facility] Colonoscopy Normal, Abstracted Anatomical Region Laterality Modality Other [facility] Provider HEALTH MAINTENANCE Final Result * HIV Screening (05/13/2017) [facility] HIV Screening Abstracted Historical Provider HEALTH MAINTENANCE Final Result * Hepatitis C Screening (05/13/2017) [facility] Hepatitis C Screening Abstracted Historical Provider HEALTH MAINTENANCE Final Result from Last 3 Months or Most Recently Relevant to Health Maintenance Insurance [facility] [address] PLAN Care Teams Asbestos Abatement Worker Relationship Specialty Start Date End Date Melina Barber MD [address] [place] [address] Dr [address] [facility] [place] [address] PCP - General 02/06/08
--- OUTSIDE RECORDS SUMMARY | 2025-06-19 08:48 | XMS_ITS | Encounter Summary ---
Author Organization [facility] Address [address] [place] [address] Care Team Providers Care Collar Turner Name Role Phone Melina Barber MD Primary Care Provider [phone] Reason for Visit * Reason Onset Date Comments Med Refill 06/15/2025 Encounter Details Date Type Department Care Team ([facility] st Contact Info) Description 06/15/2025 Telephone Bariatric Surgery - [place] [address] [place] [address] Desirae Knutson PA 230 [place] [phone] Social History Tobacco Use Types Packs/Day Years [...] Record ed Within the last 3 months, rober duenas many times did you visit the emergency [...] for your loved ones. 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 (5 years old or older) Answer Entry Date Author No 10/09/2024 4:24 PM Feng RN documented in this encounter Progress Notes * Nichol Limon - 06/15/2025 11:14 AM EST Please send script for phentermine and topiramate to pharmacy documented in this encounter Plan of Treatment Upcoming Encounters Date Type Department Care Team (Late st Contact Info) Description 07/06/2025 3:30 PM EST Office Visit Orthopedic Surgery [facility] 250 175 [facility] 250 [place] [address] Jordan Pang DPM 175 [facility] 250 [place] [phone] 09/06/2025 3:45 PM EST Office Visit Bariatric Surgery [facility] 175 [facility] 120 [place] [address] Desirae Knutson PA [address] [place] [phone] 03/16/2026 3:45 PM EDT Office Visit Pulmonology - [address] [place] [address] Bhaskar Barnes MD [address] [place] [phone] documented as of this encounter Visit Diagnoses Not on filedocumented in this encounter Additional Health Concerns Assessment Noted Time PHQ-9 Depression Total Score: 0 10/06/19 25 11:54 AM EDT documented as of this encounter Care Teams Collar Turner Relationship Specialty Start Date End Date Melina Barber MD [address] [place] [address] [address] [facility] [place] [address] PCP - General 02/06/08 documented as of this encounter
[2025-06-19 09:15] LABS: MANUAL DIFF FLAG NO
[2025-06-19 10:21] LABS: Hematocrit 41.5 % (37.0-47.0); Hemoglobin 13.7 g/dl (12.0-16.0); Imm Gran Abs Auto 0.02 X10*3/uL (0.00-0.03); Imm Gran Pct Auto 0.3 % (0.0-0.4); Lymphocytes Absolute Auto 2.3 X10*3/uL (1.2-4.9); Mean Corpuscular HGB Conc 33.0 g/dl (31.0-35.0); Mean Corpuscular Hemoglobin 28.1 pg (27.0-33.0); Mean Corpuscular Volume 85.2 fL (80.0-98.0); NRBC Abs Auto 0.000 X10*3/uL (0.0-0.012); NRBC Pct Auto 0.0 /100WBC (0.0-0.2); Platelet Count 256 X10*3/uL (160-400); Red Blood Count 4.87 X10*6/uL (4.20-5.50); White Blood Count 6.8 X10*3/uL (4.8-10.8)
[2025-06-19 10:51] LABS: Alanine Aminotransferase 46 U/L (0-31); Albumin Level 4.1 g/dL (3.5-5.0); Alkaline Phosphatase 95 U/L (39-117); Anion Gap 11 (12-20); Aspartate Amino Transferase 48 U/L (5-31); Blood Urea Nitrogen 15 mg/dL (9-16); Calcium 9.3 mg/dL (8.4-10.2); Carbon Dioxide 28 mmol/L (22-29); Chloride 106 mmol/L (96-108); Cholesterol 154 mg/dL (<200); Estimated Glomerular Filt Rate > 60; HDL Cholesterol 54 mg/dL (>40); Potassium 4.1 mmol/L (3.3-5.1); Sodium 141 mmol/L (135-145); Total Protein 6.9 g/dL (6.5-8.0); Triglycerides 77 mg/dL (<150)
[2025-06-19 11:23] LABS: Appearance Urine Cloudy; Glucose Urine UA Negative (Negative); PH 6.0 (5.0-9.0); Specific Gravity - Urine 1.010 (1.005-1.025)
[2025-06-19 11:51] LABS: Folate 8.4 ng/mL (> or = 4.0); Vitamin B12 > 2000 pg/mL (200-900)
== END 2025-06-19 08:46 | disposition home or self-care (01) ==
LOC: HO.LAB 08:45
PROVIDERS: PCP Internal Medicine
DX: F41.1 Generalized anxiety disorder (principal); I10 Essential (primary) hypertension; I73.9 Peripheral vascular disease, unspecified; E78.00 Pure hypercholesterolemia, unspecified; E66.01 Morbid (severe) obesity due to excess calories; E53.8 Deficiency of other specified B group vitamins; Z68.44 Body mass index [BMI] 60.0-69.9, adult
CPT/HCPCS: 36415; 80053; 80061; 81003; 82306; 82607; 82746; 84443; 85025